=== PATIENT | female | born 1945 | race Caucasian/White ===

== ENCOUNTER 2021-08-25 13:36 | Outpatient (CLI) | payer MEDICARE, MEDICAID, SELFPAY ==
[2021-08-25 14:08] LABS: Basophils Absolute Auto 0.07 K/mm3 (0.00-0.10); Eosinophils Absolute Auto 0.09 K/mm3 (0.02-0.50); Eosinophils Percent Auto 1.3 % (1.0-6.0); Hematocrit 35.7 % (35.0-42.0); Hemoglobin 11.7 g/dL (11.7-13.8); Immature Granulocyte Absolute 0.03 K/mm3 (0.00-0.00); Immature Granulocyte Percent A 0.4 % (0.0-0.0); Lymphocytes Percent Auto 27.9 % (18.0-42.0); Mean Corpuscular HGB Conc 32.8 g/dL (32.0-36.0); Mean Corpuscular Hemoglobin 31.5 pg (27.0-31.0); Mean Platelet Volume 9.5 fl (9.2-11.8); Monocytes Absolute Auto 0.56 K/mm3 (0.10-0.90); Monocytes Percent Auto 8.2 % (2.0-11.0); Neutrophils Absolute Auto 4.2 K/mm3 (1.7-7.2); Neutrophils Percent Auto 61.2 % (50.0-70.0); Platelet Count Result 218 K/mm3 (150-420); Red Blood Count 3.72 M/mm3 (4.20-5.40); Red Cell Distribution Width 13.2 % (11.6-14.4); White Blood Count 6.8 K/mm3 (4.8-10.8)
[2021-08-25 14:11] LABS: Creatinine Urine 38.15 mg/dL (40-278); Ur Ttl Prot Creatinine Ratio 0.16 mg/mg (0-0.20)
[2021-08-25 14:17] LABS: Hemoglobin A1C 5.7 % (<5.7)
[2021-08-25 14:19] LABS: Total Protein Urine Random < 6.0 mg/dL (0.0-11.9)
[2021-08-25 14:28] LABS: Alanine Aminotransferase 18 U/L (14-59); Albumin Level 3.2 g/dL (3.4-5.0); Alkaline Phosphatase 40 U/L (46-116); Anion Gap 5 mmol/L (8-16); Aspartate Amino Transferase 17 U/L (15-37); Bilirubin,Total 0.5 mg/dL (0.00-1.00); Blood Urea Nitrogen 20 mg/dL (7-18); Carbon Dioxide 30 mmol/L (21-32); Chloride 101 mmol/L (98-108); Cholesterol 133 mg/dL (0-200); Estimated Glomerular Filt Rate 37; Glucose 100 mg/dL (70-99); HDL Direct 54 mg/dL (40-60); LDL Cholesterol Calculated 66 mg/dL (<130); Osmolality Calculated 284 mOsm/kg (285-295); Phosphorus 3.4 mg/dL (2.6-4.7); Sodium 136 mmol/L (136-145); Triglycerides 67 mg/dL (0-150); Uric Acid 5.2 mg/dL (2.6-6.0)
[2021-08-27 11:08] LABS: Add Urine Microscopic? YES; Appearance Urine Clear (Clear); Bilirubin Urine Negative (Negative); Blood Urine Negative (Negative); Color Urine Light Yellow (Yellow); Glucose Urine UA Negative (Negative); Ketones Urine Negative (Negative); Leukocyte Esterase Ur 1+ LEU/UL (Negative); Nitrate Urine Positive (Negative); Protein Urine Negative (Negative); Specific Grav Ur <= 1.005 (1.010-1.020); Urobilinogen Urine 0.2 mg/dL (0.2-1.0); pH Urine 6.5 (5.0-8.0)
[2021-08-27 11:14] LABS: Bacteria Urine 2+ /hpf; RBC Urine None seen /hpf (0-2); Squamous Epithelial Cell Urine Few /hpf (Few); WBC Urine 16-20 /hpf (0-3)
[2021-08-28 13:12] LABS: Parathyroid Intact 39 pg/mL (14-64)
[2021-08-28 20:03] LABS: Vitamin D 25 Hydroxy 65 ng/mL (30-100)
== END 2021-08-25 13:37 | disposition home or self-care (01) ==
LOC: CHSLAB 13:41
PROVIDERS: PCP Internal Medicine; Visit Provider Internal Medicine Nephrology
DX: M19.90 Unspecified osteoarthritis, unspecified site (principal); I12.0 Hypertensive chronic kidney disease with stage 5 chronic kidney disease or end stage renal disease; N18.32 Chronic kidney disease, stage 3b; N39.46 Mixed incontinence; E78.5 Hyperlipidemia, unspecified; E66.9 Obesity, unspecified; M10.9 Gout, unspecified; R73.9 Hyperglycemia, unspecified
CPT/HCPCS: 36415; 80053; 80061; 81001; 82306; 82570; 83036; 83970; 84100; 84156; 84443; 84550; 85025; 87077; 87086; 87088; 87186

== ENCOUNTER 2024-07-18 13:44 | Outpatient (RCR) | payer MEDICARE, MEDICAID, SELFPAY ==
--- NOTE | 2024-07-18 15:41 | OPREHPOC ---
Outpatient Therapy Plan of Care This is a Multidisciplinary Plan of Care that may contain components documented by all disciplines (PT, OT, and ST.) PT Problem 1 PT Problem #1 Knowledge Deficit PT Goal 1 Goal / Goal Update The patient will be independent in a home exercise program. Target Visit 4 PT Problem 2 PT Problem #2 Impaired Endurance PT Goal 1 Goal / Goal Update The patient will be able to ambulate for 6 minutes without a rest break to improve community ambulation. Target Visit 10 PT Problem 3 PT Problem #3 Impaired Strength PT Goal 1 Goal / Goal Update The patient will demonstrate at least 4/5 bilateral hip and knee strength to improve gait and balance. PT Problem 4 PT Problem #4 Impaired Balance PT Goal 1 Goal / Goal Update The patient will improve her TUG score to under 30 seconds. The patient will improve her Tinetti balance score to 19 or greater indicating a lower fall risk.
--- NOTE | 2024-07-18 15:42 | PTOPEVAL1 ---
Assessment and note entered by Amina Ng, PT Evaluation Information Assessment Status Evaluation ICD-10 Condition Codes (PT) Weakness R53.1 Onset 07/12/24 Subjective Information Tiana Wilson reports she has had both knees and both hips replaced. She had her hips replaced over 20 years ago and then the left knee was replaced approximately 6 years ago and the right one was approximately 4 years ago. She is using a rollator walker in her home and has been using a motorized cart when she goes shopping. She is using a standard walker to get to/from her home to the vehicle and into other buildings. She feels she has gotten weaker the last 2 years. She reports she has fallen out of bed about 6 months ago but has not fallen due to weakness in her legs. She is hoping to build her strength to get away from using motorized carts. She denies pain today. Reported Pain Level Pain Score 0: Self Report Assessment PT Clinical Summary Tiana Wilson is a 79 y/o with a history of bilateral hip and knee replacements with worsening weakness in bilateral LE's leading to reliance on motorized carts for shopping. She is able to use a walker for shorter distances but is hoping to work on her strength and endurance to improve her ability to walk and shop. She demonstrates weakness in the right > left knee and hip, altered gait, decreased endurance, and poor balance. She is currently a high fall risk and is only able to ambulate approximately 20 feet before needing to sit and rest. She will benefit from skilled PT to address these limitations and improve her daily function. Plan of Care Interventions Gait Training,Neuro Re-education,Patient/Caregiver Education,Therapeutic Activities,Therapeutic Exercise PT Services Indicated Yes Treatment Frequency and 2 times a week for 10 visits Duration These treatments will address the objective and functional deficits as defined above. The patient will be advanced safely and appropriately in order for the patient to progress towards his/her prior level of function. Additional exercises will be introduced and as well as a comprehensive home exercise program upon discharge, if needed, ?to ensure carryover of functional gains achieved in the clinic. This treatment plan has been reviewed and agreement upon by the patient.
--- NOTE | 2024-08-03 14:05 | PCPTNOTE ---
Patient did not show up for scheduled appointment this date. -Amina Ng, PT
--- NOTE | 2024-10-11 15:36 | OPREHPOC ---
Outpatient Therapy Plan of Care This is a Multidisciplinary Plan of Care that may contain components documented by all disciplines (PT, OT, and ST.) PT Problem 1 PT Problem #1 Knowledge Deficit PT Goal 1 Goal / Goal Update The patient will be independent in a home exercise program. Target Visit 4 Progress Not Met PT Problem 2 PT Problem #2 Impaired Endurance PT Goal 1 Goal / Goal Update The patient will be able to ambulate for 6 minutes without a rest break to improve community ambulation. Target Visit 10 Progress Not Met PT Problem 3 PT Problem #3 Impaired Strength PT Goal 1 Goal / Goal Update The patient will demonstrate at least 4/5 bilateral hip and knee strength to improve gait and balance. Progress Not Met PT Problem 4 PT Problem #4 Impaired Balance PT Goal 1 Goal / Goal Update The patient will improve her TUG score to under 30 seconds. The patient will improve her Tinetti balance score to 19 or greater indicating a lower fall risk. Progress Not Met
--- NOTE | 2024-10-11 15:36 | PTOPDC ---
Assessment and note entered by Amina Ng, PT Evaluation Information Assessment Status Discharge - Pt Not Present ICD-10 Condition Codes (PT) Weakness R53.1 Onset 07/12/24 Subjective Information Tiana Wilson was seen for 2 skilled PT visits and was last seen in the clinic on 07/27/24. She has not returned since then. Assessment PT Clinical Summary Tiana Wilson was seen for 2 skilled PT visits for weakness. She has not been seen since 07/27/24 and will be discharged. Plan of Care PT Services Indicated No
== END 2024-07-27 20:00 | disposition home or self-care (01) ==
LOC: CHSPT 13:44
DX: R29.898 Other symptoms and signs involving the musculoskeletal system (principal)
CPT/HCPCS: 97110; 97161; 97530

== ENCOUNTER 2024-08-01 14:22 | Emergency (ER) | payer MEDICARE, MEDICAID, SELFPAY ==
--- NOTE | ~2024-08-01 | US_ITS ---
EXAMINATION: US venous doppler [facility] DATE: 08/01/2024 14:53 INDICATION: Left lower limb swelling and erythema TECHNIQUE: Grayscale ultrasound images without and with compression and Doppler ultrasound images of the left lower extremity veins were obtained. COMPARISON: None. FINDINGS: The visualized portions of left common femoral vein, profunda (deep) femoral vein, femoral vein, popl iteal vein, peroneal veins, posterior tibial veins, gastrocnemius vein and greater saphenous vein out flow are patent. IMPRESSION: 1. No deep venous thrombosis in the left lower limb. Reviewed, dictated and finalized at location A.
[2024-08-01 14:22] VITALS: BP 126/91; PULSE 44; RESP 18; TEMP 36.3; O2SAT 80
--- OUTSIDE RECORDS SUMMARY | 2024-08-01 14:27 | XMS_ITS | Data Portability ---
[facility] Organization [facility] Address [address] [facility] [place] [address] Care Team Providers Care Fax Machine Repairer Name Role Phone TANA BROOKS Primary Care Provider Unavailabl e Assessment No assessment recorded. 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, ONLINE ADVERTISING DIRECTOR-BC Not available Not available Not available Lab uric acid, serum or plasma 2024 025 [facility], [address] [place] [address], [address], [address], 07/12/2024 15:29:07 lipid panel, serum 2024 025 [facility], [address] [place] [address], [facility], [place], [address], 07/12/2024 15:29:03 drug screen, 14 drugs (detect imed), urine 2024 025 [facility], [address] [place] [address] 2, [place], [address], 07/12/2024 15:39:33 culture , urine 2024 025 [facility], [address] [facility], [facility] 2, [place], [address], 07/12/2024 15:29:06 urinaly sis, complet e 2024 025 [facility], [address] [place], [place] [address] [address], [place], [address], 07/12/2024 15:39:33 CBC w/ auto diff 2024 025 [facility], [address] [place] [address], [place], [address], 07/12/2024 15:29:04 TSH + free T4, serum 2024 025 [facility], [address] [place] [address], [place], [address], 07/12/2024 15:29:04 CMP, serum or plasma 2024 025 [facility], [address] [place] [address], [place], [address], 07/12/2024 15:29:05 HbA1c (hemogl obin A1c), blood 2024 025 [facility], [address] [place] [address], [place], [address], 07/12/2024 15:29:08 BNP (B-type natriur etic peptide ), serum or plasma 2024 025 [facility], [address] [place] [address], [place], [address], 07/12/2024 15:37:05 fecal occult blood, immunoa ssay, stool 2023 024 [email or web address] [facility], [address] [place] [address], [place], [address], 05/29/2024 08:24:01 CBC w/ auto diff 2023 024 [email or web address] [facility], [address] [place] [address], [place], [address], 05/31/2024 09:31:50 CMP, serum or plasma 2023 024 [email or web address] [facility], [address] [place] [address], [place], [address], 05/31/2024 09:32:03 lipid panel, serum 2023 024 [email or web address] [facility], [address] [place] [address], [place], [address], 05/31/2024 09:32:09 HbA1c (hemogl obin A1c), blood 2022 023 [facility], [address] [place] [address], [place], [address], 05/03/2023 12:07:22 CBC w/ auto diff 2022 023 [facility], [address] [place] [address], [place], [address], 12/18/2022 15:17:35 CMP, serum or plasma 2022 023 [facility], [address] [place] [address], [place], [address], 12/18/2022 15:17:35 fecal occult blood, immunoa ssay, stool 2022 023 [email or web address] [facility], [address] [place] [address], [place], [address], 04/02/2023 11:51:25 lipid panel, serum 2022 023 [facility], [address] [place] [address], [place], [address], 12/18/2022 15:17:35 TSH, ultra-s ensitiv e, serum 2022 023 [facility], [address] [place] [address], [place], [address], 12/18/2022 15:17:35 CBC w/ auto diff 2022 023 [facility], [address] [place] [address] 2, [place], [address], 06/29/2022 15:13:06 CMP, serum or plasma 2022 023 [facility], [address] [place] [address] 2, [place], [address], 06/29/2022 15:13:04 lipid panel, serum 2022 023 [facility], [address] [place] [address] 2, [place], [address], 06/29/2022 15:13:06 CBC w/ auto diff 2021 022 [facility], [address] [place] [address] 2, [place], [address], 01/31/2022 08:19:23 lipid panel, serum 2021 022 [facility], [address] [place] [address], [place], [address], 01/31/2022 08:19:22 CMP, serum or plasma 2021 022 [facility], [address] [place] [address], [place], [address], 01/31/2022 08:19:23 Referral nephrol ogist referra l 2024 025 [facility], [address] [facility], [place], [address], 07/27/2024 08:55:[address] referra l 2024 025 [facility], [address] [facility], [place], [address], 07/18/2024 19:43:[address] referra l 2023 024 [facility], [address], [place], [address], 05/31/2024 09:32:[address] referra l 2022 023 [facility], [address] [place] [address], [address], 07/16/2022 17:20:01 Procedures None recorde d. Surgeries None recorde d. Imaging None recorde d. Medication Orders atorvas tatin 20 mg tablet 2023 024 [facility], [address] [place], [address], 01/14/2024 15:01:00 oxybuty sanjeev chlorid e 5 mg tablet 2022 023 [facility], [address] [place], [address], 06/29/2022 15:13:05 Patient TargetsNo targets recorded. Patient Instructions Encounter Date Encounter Id Patient Instructions Last Modified By Organization Details Last Modified Time 01/30/2022 [id number] f/u in 3month/lab nsuthan Not availab le 01/30/2022 15:13:20 06/29/2022 [id number] A healthy lifestyle: care instructions nsuthan Not available 06/29/2022 15:12:59 f/u in 4 month nsuthan Not available 0 06/29/2022 15:13:30 12/18/2022 [id number] A healthy lifestyle: care instructions nsuthan Not available 12/18/2022 15:17:20 stool kit/f/u in 4 month nsuthan Not available 12/18/2022 15:20:52 01/14/2024 [id number] stool kit /f/u i n 3 month nsuthan Not available 01/14/2024 14:48:49 07/12/2024 [id number] Plan of care has been discussed with patient including expected therapeutic benefits and potential side effects of prescribed medication and treatments. Patient verbalizes understanding and is in agreement with the plan of care. Patient was instructed to keep all scheduled appointments and contact the clinic for any additional problems. Health Maintenance: - CRC screening (45-75):Due at 45 years. - Osteoporosis screening: Due at 65. - Lipid screening (>45 unless additional risk factors): ordered - HIV: declined - HepC: declined -Eye exam: 2024-[facility] -Dental Exam: endentulous - Immunizations: - Influenza: 01/14/24 - PPV 23: 02/21/18, 05/15/15 - Tdap/Td ([id number]): 02/26/16 - Zoster (>60): 06/14/15 - COVID-19: 01/06/23, 01/23/22, 01/17/21 -Labs ordered this visit: Females: Pap smear: n/a Mammogram: n/a DEXA: n/a, patient reports history of normal result Not available 07/12/2024 15:25:29 Reason for Referral Physical Therapist Referral for Osteoarthritis of knee Referring Physician: [facility], Encounter Date: 06/29/2022 Physical Therapist Referral for Osteoarthritis of knee Referring Physician: [facility], Encounter Date: 01/14/2024 Roving Sizer Referral for Ch ronic kidney disease stage 3A Referring Physician: Tana Brooks [facility], Encounter Date: 07/12/2024 Physical Therapist Referral for Weakness of bilateral lower limb Referring Physician: Tana Brooks [facility], Encounter Date: 07/12/2024 Results Created Date Observation Date Name Description Value Unit Range Abnormal Flag Note LastModifiedBy Organization Detail LastModifiedTime 01/31/20 22 01/31/2022 LIPID PANEL cholesterol, total 151 mg/dL 100-19 9 Not Available [facility] ([facility]) [address] [facility], [place], [address], 01/31/2022 08:19:22 01/31/20 22 01/31/2022 LIPID PANEL triglyceride s 111 mg/dL 0-149 Not Available [facility]) [address] [facility], [place], [address], 01/31/2022 08:19:22 01/31/20 22 01/31/2022 LIPID PANEL HDL cholesterol 49 mg/dL >39 Not Available [facility]) [address] [place], [address], 01/31/2022 08:19:22 01/31/20 22 01/31/2022 LIPID PANEL VLDL cholesterol benedicto 20 mg/dL 5-40 Not Available [facility]) [address] [place], [address], 01/31/2022 08:19:22 01/31/20 22 01/31/2022 LIPID PANEL LDL chol calc ([facility]) 82 mg/dL 0-99 Not Available [facility]) [address] [place], [address], 01/31/2022 08:19:22 01/31/20 22 01/31/2022 COMP. METAB OLIC PANEL (14) glucose 85 mg/dL 70-99 Not Available [facility] ([facility]) [address] [place], [address], 01/31/2022 08:19:23 01/31/20 22 01/31/2022 COMP. METAB OLIC PANEL (14) BUN 16 mg/dL 8-27 Not Available [facility] ([facility]) [address] [place], [address], 01/31/2022 08:19:23 01/31/20 22 01/31/2022 COMP. METAB OLIC PANEL (14) creatinine 1.25 mg/dL 0.57-1 .00 above high normal Not Available [facility] ([facility]) [address] [place], [address], 01/31/2022 08:19:23 01/31/20 22 01/31/2022 COMP. METAB OLIC PANEL (14) eGFR 45 mL/mi n/1.7 3 >59 below low normal Not Available [facility] ([facility]) [address] [facility], [place], [address], 01/31/2022 08:19:23 01/31/20 22 01/31/2022 COMP. METAB OLIC PANEL (14) BUN/creatini ne ratio 13 12-28 Not Available [facility]) [address] [facility] [place], [address], 01/31/2022 08:19:23 01/31/20 22 01/31/2022 COMP. METAB OLIC PANEL (14) sodium 137 mmol/ L 134-14 4 Not Available [facility] ([facility]) [address] [facility] [place], [address], 01/31/2022 08:19:23 01/31/20 22 01/31/2022 COMP. METAB OLIC PANEL (14) potassium 4.5 mmol/ L 3.5-5. 2 Not Available [facility] ([facility]) [address] [facility] [place], [address], 01/31/2022 08:19:23 01/31/20 22 01/31/2022 COMP. METAB OLIC PANEL (14) chloride 97 mmol/ L 96-106 Not Available [facility] ([facility]) [address] [facility] [place], [address], 01/31/2022 08:19:23 01/31/20 22 01/31/2022 COMP. METAB OLIC PANEL (14) carbon dioxide, total 21 mmol/ L 20-29 Not Available [facility] ([facility]) [address] [facility] [place], [address], 01/31/2022 08:19:23 01/31/20 22 01/31/2022 COMP. METAB OLIC PANEL (14) calcium 9.3 mg/dL 8.7-10 .3 Not Available [facility] ([facility]) [address] [facility] [place], [address], 01/31/2022 08:19:23 01/31/20 22 01/31/2022 COMP. METAB OLIC PANEL (14) protein, total 6.7 g/dL 6.0-8. 5 Not Available [facility] ([facility]) [address] [facility] [place], [address], 01/31/2022 08:19:23 01/31/20 22 01/31/2022 COMP. METAB OLIC PANEL (14) albumin 4.2 g/dL 3.7-4. 7 Not Available [facility] ([facility]) [address] [facility] [place], [address], 01/31/2022 08:19:23 01/31/20 22 01/31/2022 COMP. METAB OLIC PANEL (14) globulin, total 2.5 g/dL 1.5-4. 5 Not Available [facility] ([facility]) [address] [facility] [place], [address], 01/31/2022 08:19:23 01/31/20 22 01/31/2022 COMP. METAB OLIC PANEL (14) A/G ratio 1.7 1.2-2. 2 Not Available [facility] ([facility]) [address] [facility] [place], [address], 01/31/2022 08:19:23 01/31/20 22 01/31/2022 COMP. METAB OLIC PANEL (14) bilirubin, total 0.4 mg/dL 0.0-1. 2 Not Available [facility] ([facility]) [address] [facility] [place], [address], 01/31/2022 08:19:23 01/31/20 22 01/31/2022 COMP. METAB OLIC PANEL (14) alkaline phosphatase 43 IU/L 44-121 below low normal Not Available [facility] ([facility]) [address] [facility] [place], [address], 01/31/2022 08:19:23 01/31/20 22 01/31/2022 COMP. METAB OLIC PANEL (14) AST (SGOT) 22 IU/L 0-40 Not Available [facility] ([facility]) [address] [place], [address], 01/31/2022 08:19:23 01/31/20 22 01/31/2022 COMP. METAB OLIC PANEL (14) ALT (SGPT) 9 IU/L 0-32 Not Available [facility] ([facility]) [address] [place], [address], 01/31/2022 08:19:23 01/31/20 22 01/31/2022 CBC WITH DIFFE RENTI AL/PL ATELE T WBC 7.2 x10e3 /uL 3.4-10 .8 Not Available [facility] ([facility]) [address] [place], [address], 01/31/2022 08:19:23 01/31/20 22 01/31/2022 CBC WITH DIFFE RENTI AL/PL ATELE T RBC 4.18 x10e6 /uL 3.77-5 .28 Not Available [facility] ([facility]) [address] [place], [address], 01/31/2022 08:19:23 01/31/20 22 01/31/2022 CBC WITH DIFFE RENTI AL/PL ATELE T hemoglobin 12.9 g/dL 11.1-1 5.9 Not Available [facility] ([facility]) [address] [place], [address], 01/31/2022 08:19:23 01/31/20 22 01/31/2022 CBC WITH DIFFE RENTI AL/PL ATELE T hematocrit 38.9 % 34.0-4 6.6 Not Available [facility] ([facility]) [address] [place], [address], 01/31/2022 08:19:23 01/31/20 22 01/31/2022 CBC WITH DIFFE RENTI AL/PL ATELE T MCV 93 fL 79-97 Not Available [facility] ([facility]) [address] [facility], [place], [address], 01/31/2022 08:19:23 01/31/20 22 01/31/2022 CBC WITH DIFFE RENTI AL/PL ATELE T MCH 30.9 pg 26.6-3 3.0 Not Available [facility] ([facility]) [address] [facility], [place], [address], 01/31/2022 08:19:23 01/31/20 22 01/31/2022 CBC WITH DIFFE RENTI AL/PL ATELE T MCHC 33.2 g/dL 31.5-3 5.7 Not Available [facility] ([facility]) [address] [place], [address], 01/31/2022 08:19:23 01/31/20 22 01/31/2022 CBC WITH DIFFE RENTI AL/PL ATELE T RDW 13.1 % 11.7-1 5.4 Not Available [facility] ([facility]) [address] [place], [address], 01/31/2022 08:19:23 01/31/20 22 01/31/2022 CBC WITH DIFFE RENTI AL/PL ATELE T platelets 249 x10e3 /uL 150-45 0 Not Available [facility] ([facility]) [address] [place], [address], 01/31/2022 08:19:23 01/31/20 22 01/31/2022 CBC WITH DIFFE RENTI AL/PL ATELE T neutrophils 67 % notest ab. Not Available [facility] ([facility]) [address] [place], [address], 01/31/2022 08:19:23 01/31/20 22 01/31/2022 CBC WITH DIFFE RENTI AL/PL ATELE T lymphs 23 % notest ab. Not Available [facility] ([facility]) [address] [facility], [place], [address], 01/31/2022 08:19:23 01/31/20 22 01/31/2022 CBC WITH DIFFE RENTI AL/PL ATELE T monocytes 8 % notest ab. Not Available [facility] ([facility]) [address] [facility], [place], [address], 01/31/2022 08:19:23 01/31/20 22 01/31/2022 CBC WITH DIFFE RENTI AL/PL ATELE T eos 1 % notest ab. Not Available [facility] ([facility]) [address] [facility], [place], [address], 01/31/2022 08:19:23 01/31/20 22 01/31/2022 CBC WITH DIFFE RENTI AL/PL ATELE T basos 1 % notest ab. Not Available [facility] ([facility]) [address] [facility], [place], [address], 01/31/2022 08:19:23 01/31/20 22 01/31/2022 CBC WITH DIFFE RENTI AL/PL ATELE T neutrophils (absolute) 4.7 x10e3 /uL 1.4-7. 0 Not Available [facility] ([facility]) [address] [facility], [place], [address], 01/31/2022 08:19:23 01/31/20 22 01/31/2022 CBC WITH DIFFE RENTI AL/PL ATELE T lymphs (absolute) 1.7 x10e3 /uL 0.7-3. 1 Not Available [facility] ([facility]) [address] [facility], [place], [address], 01/31/2022 08:19:23 01/31/20 22 01/31/2022 CBC WITH DIFFE RENTI AL/PL ATELE T monocytes(ab solute) 0.6 x10e3 /uL 0.1-0. 9 Not Available [facility] ([facility]) [address] [place], [address], 01/31/2022 08:19:23 01/31/20 22 01/31/2022 CBC WITH DIFFE RENTI AL/PL ATELE T eos (absolute) 0.1 x10e3 /uL 0.0-0. 4 Not Available [facility] ([facility]) [address] [place], [address], 01/31/2022 08:19:23 01/31/20 22 01/31/2022 CBC WITH DIFFE RENTI AL/PL ATELE T baso (absolute) 0.1 x10e3 /uL 0.0-0. 2 Not Available [facility] ([facility]) [address] [facility], [place], [address], 01/31/2022 08:19:23 01/31/20 22 01/31/2022 CBC WITH DIFFE RENTI AL/PL ATELE T immature granulocytes 0 % notest ab. Not Available [facility] ([facility]) [address] [facility], [place], [address], 01/31/2022 08:19:23 01/31/20 22 01/31/2022 CBC WITH DIFFE RENTI AL/PL ATELE T immature grans (abs) 0.0 x10e3 /uL 0.0-0. 1 Not Available [facility] ([facility]) [address] [place], [address], 01/31/2022 08:19:23 02/19/20 22 02/18/2022 elect chasity reynolds am No observ ation record ed. martinuthjermaine [facility] (Cardiology) [address] [facility] [place], [address], 02/19/2022 09:06:43 02/26/20 22 02/18/2022 US, echoc ardio gram No observ ation record ed. [address] [place], [address], 02/26/2022 15:39:37 03/05/2002/18/2022 US, echoc ardio gram No observ ation record ed. nsuthjermaine [facility] [address] [facility] [place], [address], 03/05/2022 11:37:43 Result Notes None recorded. Problems Name Problem SNOMED Code Status Onset Date Resolution Date Notes Provider Name and Address Organization Details Recorded Time Cervical spondylosi s 795510483 Active 2018 xray 01/31-augusto re arthritis Tato Damon MD Attn: Evgeny ingram,[address] [facility], [place], [place], [address] [place] [address] 2, [place] - [facility] 2 14:57:56 Essential hypertensi on 57099099 Active Tato Damon MD Attn: Evgeny ingram,[address] [facility], [place], [place], [address] [place] [address] 2, [place] [facility] 2 14:57:57 Chronic renal failure 92351992 Active Dr.Bentley Tato Damon MD Attn: Evgeny ingram,[address] [facility], [place], [place], [address] [place] [address] 2, [place] [facility] 2 14:57:57 Urinary incontinen ce 863273154 Active Tato Damon MD Attn: Evgeny ingram,[address] [facility], [place], [place], [address] [place] [address] 2, [place] [facility] 2 14:57:56 Osteoarthr itis of knee 438299381 Active Tato Damon MD Attn: Evgeny ingram,[address] [facility], [place], [place], [address] [place] [address] 2, [place] [facility] 2 14:57:56 Hyperglyce gabriel 61635905 Active 2021 Barb Patel MA null, [place] - [facility] 2 12:03:07 Hyperlipid emia 46388528 Active Tato Damon MD Attn: Evgeny ingram,[address] [facility], [place], [address], [facility] - [facility] 2 14:57:56 Intermitte nt palpitatio ns 536952538 Active 2021 Tato Damon MD Attn: Evgeny ingram,[address] [facility], [place], [address], [facility] - [facility] 2 15:09:56 Anxiety disorder 658596886 Active 2021 Tato Damon MD Attn: Evgeny ingram,[address] [facility], [place], [address], [facility] - [facility] 2 15:09:59 Gastroesop hageal reflux disease without esophagiti s 558334351 Active 2021 Tato Damon MD Attn: Evgeny ingram,[address] [facility], [place], [address], [facility] - [facility] 2 15:10:00 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 Procedures Surgical History Date Name Laterality Status Provider Name and Address Organization Details Recorded Time 07/14/19 21 Most Recent Mammogram completed Felisa Castellano MA [facility] 12/19/2021 15:14:59 Eye Surgery completed Aretha Davis MA [facility] 04/26/2014 15:49:12 Appendectomy completed Aretha Davis MA [facility] 04/26/2014 15:49:12 Hysterectomy completed ARA Calab[facility] - [facility] 04/26/2014 15:49:12 Joint Replacement completed ARA Calabrese - [facility] 04/26/2014 15:49:12 Caesarean Section completed ARA Calabrese - [facility] 04/26/2014 15:49:12 Imaging Results Imaging Date Name Status LastModified by Organization Details LastModified Time 02/18/2022 [facility] (Cardiology) [address] [place] [address] [place], [address], 02/19/2022 09:06:43 02/18/2022 US, echocardiogram completed [address] [place], [address], 02/26/2022 15:39:37 02/18/2022 US, echocardiogram completed [address] [place], [address], 03/05/2022 11:37:43 Procedure Notes None recorded. Medical Equipment None Reported. Allergies No known drug allergies Medications Name Sig Start Date Stop Date Status Note LastModified by Organization Details LastModified Time latanopros t 0.005 % eye drops INSTILL 1 DROP INTO RIGHT EYE AT BEDTIME active Not Available Not Available No t Available atorvastat in 20 mg tablet Take 1 tablet(s ) every day by oral route. 2024 active Not Available Not Available Not Avai lable pravastati n 40 mg tablet TAKE 1 TABLET BY MOUTH ONCE DAILY AT BEDTIME 01/13 completed Not Available Not Available Not Available tizanidine 4 mg tablet Take 1 tablet twice a day by oral route. 09/03 completed not taking Not Available Not Available Not Available fluconazol e 150 mg tablet 04/26 completed Not Available Not Available Not Available hydrocodon e 5 mg-acetami nophen 325 mg tablet active Not Available Not Available No t Available ondansetro n HCl 4 mg tablet active Not Available Not Available Not Available ciprofloxa haydee 250 mg tablet Take 1 tablet every day by oral route for 7 days. 12/19 completed Not Available Not Available Not Available allopurino l 100 mg tablet TAKE 1 TABLET BY MOUTH ONCE DAILY active Not Available Not Available No t Available ciprofloxa haydee 500 mg tablet 09/03 completed Not Available Not Available Not Available sulfametho xazole 800 mg-trimeth oprim 160 mg tablet active Not Available Not Available No t Available tramadol 50 mg tablet TAKE 1 TABLET BY MOUTH 1 TO 2 TIMES DAILY NEEDED active Not Available Not Available No t Available Celebrex 200 mg capsule active Not Available Not Available Not Available oxycodone- acetaminop hen 5 mg-325 mg tablet active Not Available Not Available Not Available famotidine 20 mg tablet Take 1 tablet by mouth twice daily active Not Available Not Available No t Available cephalexin 500 mg capsule 02/25 completed Not Available Not Available Not Available lisinopril 20 mg-hydroch lorothiazi de 25 mg tablet TAKE 1 TABLET BY MOUTH ONCE DAILY 12/23 completed not taking Not Available Not Available Not Available losartan 50 mg-hydroch lorothiazi de 12.5 mg tablet Take 1 tablet by mouth once daily 2024 active Not Available Not Available Not Avai lable oxybutynin chloride 5 mg tablet TAKE 1 TAB BY MOUTH IN THE MORNING AND 2 TABS IN THE EVENING active Not Available Not Available No t Available sertraline 50 mg tablet TAKE 1 TABLET BY MOUTH ONCE DAILY active Not Available Not Available No t Available amoxicilli n 500 mg-potassi um clavulanat e 125 mg tablet 01/01 completed Not Available Not Available Not Available metoprolol tartrate 25 mg tablet TAKE 1 TABLET BY MOUTH THREE TIMES DAILY active Not Available Not Available No t Available Zostavax (PF) 19,400 unit/0.65 mL subcutaneo us suspension 08/31 completed Not Available Not Available Not Available OxyContin 20 mg tablet,cru sh resistant, extended release active Not Available Not Available Not Available aspirin 81 mg capsule Take 1 capsule every day by oral route. active Not Available Not Available No t Available Vitals Date Recorded Body height Heart rate Respiratory rate Body temperature Oxygen saturation Oxygen saturation in Arterial blood by Pulse oximetry Body mass index (BMI) Body weight Systolic blood pressure Diastolic blood pressure Provider Name and Address Organization Details Last Updated DateTime 2 157.48 cm 71 /min 14 /min 97.5 [degF] 97 % 97 % 44.4 kg/m2 254316. 23 g 128 mm[Hg] 86 mm[Hg] Saba Tom MA [facility] 2 15:03:18 Date Recorded Body height Body mass index (BMI) Body weight Heart rate Respiratory rate Body temperature Oxygen saturation Oxygen saturation in Arterial blood by Pulse oximetry Systolic blood pressure Diastolic blood pressure Provider Name and Address Organization Details Last Updated DateTime 3 157.48 cm 44.5 kg/m2 381530. 02 g 82 /min 12 /min 97.1 [degF] 95 % 95 % 124 mm[Hg] 77 mm[Hg] Barb Patel MA [facility] 3 14:53:07 Date Recorded Body height Body mass index (BMI) Body weight Heart rate Respiratory rate Body temperature Oxygen saturation Oxygen saturation in Arterial blood by Pulse oximetry Systolic blood pressure Diastolic blood pressure Provider Name and Address Organization Details Last Updated DateTime 3 157.48 cm 45 kg/m2 235247. 72 g 96 /min 14 /min 98 [degF] 95 % 95 % 120 mm[Hg] 78 mm[Hg] Carmelita Ata [facility] 3 15:08:33 Date Recorded Body height Heart rate Respiratory rate Body temperature Oxygen saturation Oxygen saturation in Arterial blood by Pulse oximetry Systolic blood pressure Diastolic blood pressure Provider Name and Address Organization Details Last Updated DateTime 4 157.48 cm 72 /min 16 /min 97.7 [degF] 98 % 98 % 124 mm[Hg] 80 mm[Hg] Shakira Garza MA [facility] 4 14:29:52 Date Recorded Body height Oxygen saturation Oxygen saturation in Arterial blood by Pulse oximetry Heart rate Respiratory rate [id number]|2024-08-01 14:27:00|2024-08-01 14:24:00|XMS_ITS|SULEMAN VAN|External Medical Summaries|[id number]|" Continuity of Care Document (C-CDA R2.1) (Encounter date: 05/14/2006 11:05 AM) Created on: August 01, 2024 Tiana Wilson : 1945 Sex: Female Author Organization [facility] Address [address] [place] [address] [place] [address] Phone Care Team Providers Care Fax Machine Repairer Name Role Phone Vanita Dowd MD Unavailable Unavailable Procedures Procedure Date Post-op Follow-up Visit Post-op Follow-up Visit Remove Cataract, Insert Lens Office Consultation Echo Exam Of Eye Advance Directives Directive Yes / No Effective Date File Name No Information Encounters Encounter Description Practice Location Reason(s) For Visit Diagnoses Date Provider Providers Copied on Encounter [facility], [address] [place] [address] [address], [place], [place], [id number], [place] tel:[phone] [place] Professional No Information 7 Nile Waldron. [address], [place], [address], [place]. tel:[phone] Referring Provider: Kelly Borges, [address] [place] [address] Eye [facility], [place], [address]. [facility], [address] [place] [address] [address], [place], [place], [address], [place] tel:[phone] [facility] [employer] [place] Professional No Information 7 Nile Waldron. [address], [address], [place], [address], [place]. tel:[phone] [facility], [address] [place] [address] [address], [place], [place], [id number], [place] tel:[phone] Joshua FERGUSON [facility] No Information 7 Nile [address]ron. [address] [facility], [address], [place], [address], [place]. tel:[phone] Referring Provider: Kelly Borges, [address] [place] [address] Eye [facility], [place], [address]. Office Consultation [facility] Eye [facility], [address], [place], [place], [address], [place] tel:[phone] SEC Bhupinder MOBLEY Professional No Information [address] Nile [address]ron. [address] [facility] [address], [place], [address], [place]. tel:[phone] Referring Provider: Kelly Borges, [address] [place] [address] Eye [facility], [place], [address]. Family History Family Member Type Diagnosis Age At Onset No Information Payers Payer name Insurance type Covered alliance party ID Authoriza tion(s) No Information Social History Type Description Quantity Date Captured Comments Sex Female Smoking Status No Information Chief Complaint And Reason For Visit No Information Reason For Referral Reason For Referral No Information History Of Present Illness Encounter Date Complaint History Of Prese nt Illness No Information Functional Status Date Functional Assessmen t No Information Instructions Date Instruction Additional Infor mation No Information Assessments Type Assessment Date No Information Patient Care Teams Name Effective Dates (start - stop) Status Members No Information "
--- OUTSIDE RECORDS SUMMARY | 2024-08-01 14:27 | XMS_ITS | Clinical Summary ---
Author Organization [facility] Facility Address [address] [address] Care Team Providers Care Dog Pound Attendant Name Role Phone Tato Damon MD Primary Care Provider Allergies No known active allergies Medications aspirin (ST GERALDO) 81 MG EC tablet Take 81 mg by mouth 1 (one) time each day Active lisinopril-hydr oCHLOROthiazide (PRINZIDE,ZESTO RETIC) 20-25 MG per tablet Take 1 tablet by mouth 1 (one) time each day Active metoprolol tartrate 25 MG tablet Take 25 mg by mouth in the morning and 25 mg in the evening. Active oxybutynin (DITROPAN) 5 MG tablet Take 5 mg by mouth in the morning and 5 mg in the evening and 5 mg before bedtime. Active pravastatin (PRAVACHOL) 40 MG tablet Take 40 mg by mouth 1 (one) time each day Active traMADol (ULTRAM) 50 MG tablet Take 50 mg by mouth every 6 (six) hours if needed for moderate pain Active Cholecalciferol (Vitamin D3) 25 MCG tablet Take by mouth Activ e Active Problems Problem Noted Date Diagnosed Date Chronic kidney disease stage 3B 06/24/2021 Overview (06/24/2021): RENAL U/S SEPTEMBER C/W CKD/INCR ECHOGENICITY. R 9.1 L 8.5CM./ DIFFUSE BLADDER WALL THICKENING./ CREAT 1.46 - [facility] Benign essential hypertension 06/24/2021 Osteoarthritis 06/24/2021 Mixed incontinence (female) (male) 06/24/2021 Hyperlipidemia 06/24/2021 Obesity 06/24/2021 Gout 06/24/2021 Overview (06/24/2021): GOUT ATTCK FALL 2017- URIC ACID 9.1 Family History Medical History Relation Comments Heart attack Brother Liver cancer Brother Lung cancer Brother Lung cancer Father Cancer Sibling Kidney disease Sibling Diabetes Sister Heart disease Sister Relation Status Comments Brother Father Mother (Age 87) Sibling Alive Sister Social History Tobacco Use Types Packs/Day Years Used Date Smoking Tobacco: Never Smokeless Tobacco: Never Alcohol Use Standard Drinks/Week Comments Not Currently 0 (1 standard drink = 0.6 oz pur e alcohol) Former Social Drinker Comments Unknown Sex and Gender Information Value Date Recorded Sex Assigned at Not on file Legal Sex Female 12:13 PM EST Gender Identity Not on file Sexual Orientation Not on file Plan of Treatment Health Maintenance Due Date Last Done Comments Pneumococcal Vaccine: 50+ Ye ars (1 of 2 - PCV) 1966 Influenza Vaccine (Season Ended) 2024 Hepatitis B Vaccine Aged Out No longe r eligible based on patient's age to complete this topic Care Teams Dog Pound Attendant Relationship Specialty Start Date End Date Tato Damon MD [address] [id number] PCP - General Internal Medicine 06/27/21
[2024-08-01 14:44] LABS: Basophils Absolute Auto 0.03 K/mm3 (0.00-0.10); Basophils Percent Auto 0.2 % (0.0-1.0); Hematocrit 35.5 % (35.0-42.0); Hemoglobin 11.3 g/dL (11.7-13.8); Immature Granulocyte Absolute 0.17 K/mm3 (0.00-0.00); Lymphocytes Absolute Auto 1.45 K/mm3 (1.10-4.50); Lymphocytes Percent Auto 8.3 % (18.0-42.0); Mean Corpuscular HGB Conc 31.8 g/dL (32-36); Mean Corpuscular Hemoglobin 30.3 pg (27.0-31.0); Mean Corpuscular Volume 95.2 fL (78.0-102.0); Mean Platelet Volume 9.3 fl (9.2-11.8); Monocytes Absolute Auto 0.71 K/mm3 (0.10-0.90); Monocytes Percent Auto 4.1 % (2.0-11.0); Neutrophils Absolute Auto 15.02 K/mm3 (1.70-7.20); Neutrophils Percent Auto 86.4 % (50.0-70.0); Platelet Count Result 201 K/mm3 (150-420); Red Blood Count 3.73 M/mm3 (4.20-5.40); Red Cell Distribution Width 14.3 % (11.6-14.4); White Blood Count 17.4 K/mm3 (4.8-10.8)
[2024-08-01 14:58] LABS: Alanine Aminotransferase 24 U/L (6-35); Albumin Level 3.3 g/dL (3.5-5.1); Alkaline Phosphatase 51 U/L (38-126); Anion Gap 4 mmol/L (4-12); Aspartate Amino Transferase 33 U/L (14-36); Bilirubin,Total 1.8 mg/dL (0.2-1.3); Blood Urea Nitrogen 26 mg/dL (7-17); Calcium 8.6 mg/dL (8.4-10.2); Carbon Dioxide 30 mmol/L (22-30); Chloride 99 mmol/L (98-107); Estimated CRCL calculation 41 ml/min; Estimated Glomerular Filt Rate 43; Glucose 133 mg/dL (65-110); Osmolality Calculated 282 mOsm/kg (285-295); Potassium 3.4 mmol/L (3.4-5.0); Sodium 133 mmol/L (137-145); Total Protein 6.3 g/dL (6.3-8.2)
[2024-08-01 15:00] VITALS: BP 128/62; PULSE 99; RESP 17; O2SAT 97
[2024-08-01 15:02] LABS: D Dimer 3.32 mg/L (0.19-0.50)
--- OUTSIDE RECORDS SUMMARY | 2024-08-01 15:27 | XMS_ITS | Continuity of Care Document ---
Author Organization [facility] Address [address] [facility] [address] [place] [address] Phone Care Team Providers Care Varnish Maker Name Role Phone Vanita Dowd MD Unavailable Unavailable Procedures Procedure Date Post-op Follow-up Visit Post-op Follow-up Visit Remove Cataract, Insert Lens Office Consultation Echo Exam Of Eye Advance Directives Directive Yes / No Effective Date File Name No Information Encounters Encounter Description Practice Location Reason(s) For Visit Diagnoses Date Provider Providers Copied on Encounter [facility], [address] [place] [address] [address], [place], [place], [id number], [place] tel:[phone] SEC Bhupinder MOBLEY Professional No Information [address]ron. [address] [facility] [place] [place], [address], [place]. tel:[phone] Referring Provider: Kelly Borges, [address] [place] [address] [place], [address]. [facility], [address], [place], [place], [address], [place] tel:[phone] SEC Bhupinder ITZ Professional No Information 7 Nile Waldron. [address] [facility], [facility] A, [place], [address], [place]. tel:[phone] [facility], [address] [place] [address] [address], [place], [place], [address], tel:[phone] [facility] No Information Nile Waldron. [address], [facility] [place], [address], [place]. tel:[phone] Referring Provider: Kelly Borges, [address] [place] [address] Eye [facility], [place], [address]. Office Consultation [facility] Eye [facility], [address] [facility] [address], [place], [place], [address], [phone] SEC Bhupinder [place] Professional No Information Nile Waldron. [address], [facility] [place], [address], [place]. tel:[phone] Referring Provider: Kelly Borges, [address] [place] [address] Eye [facility], [place], [address]. Family History Family Member Type Diagnosis Age At Onset No Information Payers Payer name Insurance type Covered constitution party ID Authoriza tion(s) No Information Social [...]
--- OUTSIDE RECORDS SUMMARY | 2024-08-01 15:27 | XMS_ITS | Clinical Summary ---
Author Organization [facility] Facility Address [address] [address] Care Team Providers Care Electrolysis Engineer Name Role Phone Tato Damon MD Primary Care Provider [phone] Allergies No known active allergies Medications aspirin [...] age to complete this topic Care Teams Electrolysis Engineer Relationship Specialty Start Date End Date Tato Damon MD [address] [id number] PCP - General Internal Medicine 06/27/21
[2024-08-01 15:30] VITALS: BP 122/68; PULSE 88; RESP 17; O2SAT 98
--- NOTE | 2024-08-01 15:48 | ED_ITS ---
HPI - Extremity Problem General Chief complaint: Extremity Problem,Nontraumatic Stated complaint: leg pain and possible infection Time Seen by Provider: 08/01/24 14:29 Source: patient Mode of arrival: ambulatory Limitations: no limitations History of Present Illness HPI Narrative: Patient is 79-year-old female with a significant past medical history that presents today for lower extremity left side cellulitis. Patient has had this getting worse for the past week now. Is becoming more more red. She does have venous stasis dermatitis on both legs lower extremities. The left 1 however started turning very red and warm to touch. Also became painful to touch. Her PCP seem to think it could be a DVT he has 1 him undergo to the ER. MD Complaint: extremity pain and extremity swelling Onset (ago): week(s) Pain Consistency: intermittent Location: left Severity scale (1-10): 4 Quality: burning and aching Radiation: none Relieving factors: elevation Exacerbating factors: range of motion and weight bearing Associated symptoms: denies other symptoms Context: history of peripheral vascular disease Related Data Allergies Allergy/AdvReac Type Severity Reaction Status Date / Time No Known Allergies Allergy Verified 08/01/24 14:26 Review of Systems 2 Review of Systems: All systems reviewed & are unremarkable except as noted in HPI and below Constitutional: Constitutional: Reports as per HPI Eyes: Eyes: Reports no additional eye complaints ENT: Reports system reviewed and no additional complaints, except as documented Cardiovascular: Cardiovascular: Reports no additional cardiovascular complaints Respiratory: Respiratory: Reports no additional respiratory complaints Gastrointestinal: Gastrointestinal: Reports no additional gastrointestinal complaints Genitourinary: Genitourinary: Reports no additional female genitourinary complaints Musculoskeletal: Musculoskeletal: Reports as per HPI Integumentary/Breasts: Skin/Breast: Reports as per HPI Comments: Erythema and edema left lower extremity Neurologic: Reports system reviewed and no additional complaints, except as documented Psychiatric: Psychiatric: Reports no additional psychiatric complaints Endocrine: Endocrine: Reports no additional endocrine complaints Hematologic/Lymphatic: Hematologic/Lymphatic: Reports no additional hematologic/lymphatic complaints Allergic/Immunologic: Allergic/Immunologic: Reports no additional allergic/immunologic complaints Exam 2 Const: General: healthy appearing Nutritional Appearance: well nourished Orientation/consciousness: patient oriented x3 HENMT: Head: normal to inspection Ears: external ears normal F alis/Nose/Sinus: Normal external nose present Face and sinus: normal facial exam Mouth: Yes Normal oral and palatal mucosa present Teeth and gingiva: dentition normal Eyes: Conjunctivae: conjunctivae normal Pupils: Equal, round and reactive pupils present EOM: EOMs intact bilaterally Neck: Neck: normal visual inspection Chest: Chest palpation & inspection: normal inspection of the chest Resp: Effort & Inspection: normal respiratory effort Auscultation: clear to auscultation bilaterally Cardio: Rate: regular rate Rhythm: regular rhythm GI: GI Palp: Yes Soft to palpation Auscultation: normal bowel sounds R ectal Exam: normal sphincter tone Back/Spine/Pelvis: Back: no CVA tenderness Skin: General skin exam: normal color Rashes: no rashes Wounds: no wounds Neuro: General: patient oriented x3 Cranial nerves: Yes Nystagmus not present Speech: normal speech Gait exam (Neuro): Normal gait present Extrem: General: normal to inspection Psych: Mental Status: mental status grossly normal Affect: normal affect Attitude: cooperative Course Vital Signs Vital signs: Vital Signs Temperature 97.3 F L 08/01/24 14:22 Pulse Rate 44 L 08/01/24 14:22 Respiratory Rate 18 08/01/24 14:22 Blood Pressure 126/91 H 08/01/24 14:22 Pulse Oximetry 80 L 08/01/24 14:22 Oxygen Delivery Room Air 08/01/24 14:22 Temperature 97.3 F L 08/01/24 14:22 Pulse Rate 44 L 08/01/24 14:22 Respiratory Rate 18 08/01/24 14:22 Blood Pressure 126/91 H 08/01/24 14:22 Pulse Oximetry 80 L 08/01/24 14:22 Oxygen Delivery Room Air 08/01/24 14:22 MDM - Extremity (Nontraumatic) MDM Narrative Medical decision making narrative: patient has most likely just has cellulitis of the left lower extremity. A very low suspicion for DVT but will order a D-dimer and will ultrasound his stool here today will get him to do an ultrasound of the lower extremity. Help some her extremity showed no DVT, D-dimer was elevated to 1100. Differential Diagnosis Differential diagnosis: Likely cellulitis Medical Records Attestation: I reviewed the patient's medical records. Lab Data Attestation: I reviewed the patient's lab results. 08/01/24 14:39 08/01/24 14:39 Labs: Lab Results 08/01/24 Range/Units 14:39 WBC 17.4 H (4.8-10.8) K/mm3 RBC 3.73 L (4.20-5.40) M/mm3 Hgb 11.3 L (11.7-13.8) g/dL Hct 35.5 (35.0-42.0) % MCV 95.2 (78.0-102.0) fL MCH 30.3 (27.0-31.0) pg MCHC 31.8 L (32-36) g/dL RDW 14.3 (11.6-14.4) % Plt Count 201 (150-420) K/mm3 MPV 9.3 (9.2-11.8) fl Immature Gran % (Auto) 1.0 H (0.0-0.0) % Neut % (Auto) 86.4 H (50.0-70.0) % Lymph % (Auto) 8.3 L (18.0-42.0) % Larue % (Auto) 4.1 (2.0-11.0) % Eos % (Auto) 0.0 L (1.0-6.0) % Baso % (Auto) 0.2 (0.0-1.0) % Lymph # (Auto) 1.45 (1.10-4.50) K/mm3 Larue # (Auto) 0.71 (0.10-0.90) K/mm3 Eos # (Auto) 0.00 L (0.02-0.50) K/mm3 Baso # (Auto) 0.03 (0.00-0.10) K/mm3 Abs Immat Gran (auto) 0.17 H (0.00-0.00) K/mm3 Absolute Neuts (auto) 15.02 H (1.70-7.20) K/mm3 Absolute Nucleated RBC 0.00 (0.00-0.00) K/mm3 Nucleated RBC % 0.0 (0-0.0) % D-Dimer 3.32 H* (0.19-0.50) mg/L Sodium 133 L (137-145) mmol/L Potassium 3.4 (3.4-5.0) mmol/L Chloride 99 (98-107) mmol/L Carbon Dioxide 30 (22-30) mmol/L Anion Gap 4 (4-12) mmol/L BUN 26 H (7-17) mg/dL Creatinine 1.22 H (0.7-1.0) mg/dL Estim Creat Clear Calc 41 ml/min Estimated GFR 43 L (59 - ) Glucose 133 H (65-110) mg/dL Calculated Osmolality 282 L (285-295) mOsm/kg Calcium 8.6 (8.4-10.2) mg/dL Total Bilirubin 1.8 H (0.2-1.3) mg/dL AST 33 (14-36) U/L ALT 24 (6-35) U/L Alkaline Phosphatase 51 (38-126) U/L Total Protein 6.3 (6.3-8.2) g/dL Albumin 3.3 L (3.5-5.1) g/dL Imaging Data Attestation: I personally reviewed and interpreted this imaging study as follows: Discharge Plan Discharge Clinical Impression: Cellulitis, Lower extremity edema Patient Disposition: Home Condition: Stable Instructions: Antibiotic Form Patient Language: Czech Prescriptions: New doxycycline hyclate 100 mg tablet 100 mg PO Q12H Qty: 20 0RF Follow-up/Referrals: UNKNOWN,DOCTOR [Primary Care Provider] - Time of Disposition: 15:57
[2024-08-01 16:00] VITALS: BP 120/52; PULSE 97; RESP 17; O2SAT 98
[2024-08-01] MEDS: DOXYCYCLINE HYCLATE 100 MG TABLET PO (16:04)
[2024-08-01 16:12] VITALS: BP 120/52; PULSE 97; RESP 17; TEMP 36.3; O2SAT 98
== END 2024-08-01 16:12 | disposition home or self-care (01) ==
PROVIDERS: Emergency Provider Family Medicine
DX: L03.116 Cellulitis of left lower limb (principal); R60.0 Localized edema
CPT/HCPCS: 36415; 80053; 85025; 85380; 93971; 99283; A9270

== ENCOUNTER 2024-08-04 11:51 | Emergency (ER) | payer MEDICARE, MEDICAID, SELFPAY ==
[2024-08-04] VITALS (29 sets, daily range): BP systolic 87–159; BP diastolic 59–129; PULSE 104–145; RESP 15–22; TEMP 36.6; O2SAT 80–98
--- NOTE | ~2024-08-04 | XR_ITS ---
EXAMINATION: XR chest 1V portable 08/04/2024 12:17 INDICATION: Altered mental status PROCEDURE: AP portable chest COMPARISON: No prior studies for comparison. FINDINGS: The lungs are clear. The cardiomediastinal silhouette is within normal limits. There are no pleural effusions. There is no pneumothorax suspected. IMPRESSION: 1: NO ACUTE CARDIOPULMONARY DISEASE. Reviewed, dictated and finalized at location B.
--- NOTE | ~2024-08-04 | CT_ITS ---
Non-contrast Head CT History: Altered mental status, weakness Technique: Axial non-contrast imaging of the brain was performed. Dose reduction technique was used on this scan by utilizing automated exposure control and iterative reconstruction technique. The dose -length product (DLP) was 605.33 mGy-cm. Findings: There is no evidence of intracranial hemorrhage, mass lesion, or acute infarct. Brain par enchyma appears normal. The ventricles and subarachnoid spaces are normal in size. The calvarium ap pears normal. The visualized paranasal sinuses and mastoid air cells are clear. Impression: No significant abnormality seen. Reviewed, dictated and finalized at location . Impression: No significant abnormality seen.
--- OUTSIDE RECORDS SUMMARY | 2024-08-04 11:55 | XMS_ITS | Continuity of Care Document ---
Author Organization Located within [facility] Address [address] [facility] [address] [place] [address] Phone Care Team Providers Care Title I Instructional Assistant Name Role Phone Vanita Dowd MD Unavailable Unavailable Procedures Procedure Date Post-op Follow-up Visit Post-op Follow-up Visit Remove Cataract, Insert Lens Office Consultation Echo Exam Of Eye Advance Directives Directive Yes / No Effective Date File Name No Information Encounters Encounter Description Practice Location Reason(s) For Visit Diagnoses Date Provider Providers Copied on Encounter [facility], [address] [place] [address] [address], [place], [place], [address], [place] tel:[phone] SEC Bhupinder MOBLEY Professional No Information [address]. [address] [facility] [place], [address], [place]. tel:[phone] Referring Provider: Kelly Borges, [address] [place] [address] [place], [address]. [facility], [address], [place], [place], [address], [place] tel:[phone] SEC Bhupinder ITZ Professional No Information 7 [address]. [address] [facility], [facility] A, [place], [address], [place]. tel:[phone] [facility], [address] [place] [address] [address], [place], [place], [address], tel:[phone] [facility] No Information Nlie Waldron. [address], [facility] [place], [address], [place]. tel:[phone] Referring Provider: Kelly Borges, [address] [place] [address] Eye [facility], [place], [address]. Office Consultation [facility] Eye [facility], [address] [facility] [address], [place], [place], [address], [phone] SEC Bhupinder [place] Professional No Information Nile Waldron. [address], [facility] [place], [address], [place]. tel:[phone] Referring Provider: Kelly Borges, [address] [place] [address] Eye [facility], [place], [address]. Family History Family Member Type Diagnosis Age [...]
--- OUTSIDE RECORDS SUMMARY | 2024-08-04 11:56 | XMS_ITS | Data Portability ---
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 Not available Not available Not available Lab uric acid, serum or plasma 2024 025 eemeryma [facility], [address] [place] [address], [address], 08/02/2024 11:28:17 lipid panel, serum 2024 025 eemeryma [facility], [address] [place] [address], [place], [address], 08/02/2024 11:28:17 drug screen, 14 drugs (detect imed), urine 2024 025 eemeryma [facility], [address] [place] [address], [place], [address], 08/02/2024 11:28:18 culture , urine 2024 025 eemeryma [facility], [address] [place] [address] 2, [place], [address], 08/02/2024 11:28:17 urinaly sis, complet e 2024 025 eemeryma [facility], [address] [place] [address], [place], [address], 08/02/2024 11:28:18 CBC w/ auto diff 2024 025 eemeryma [facility], [address] [place] [address], [place], [address], 08/02/2024 11:28:17 TSH + free T4, serum 2024 025 eemeryma [facility], [address] [place] [address], [place], [address], 08/02/2024 11:28:17 CMP, serum or plasma 2024 025 eemeryma [facility], [address] [place] [address], [place], [address], 08/02/2024 11:28:17 HbA1c (hemogl obin A1c), blood 2024 025 NASIM [facility], [address] [place] [address], [place], [address], 07/12/2024 15:29:08 BNP (B-type natriur etic peptide ), serum or plasma 2024 025 eemeryma [facility], [address] [place] [address], [place], [address], 08/02/2024 11:28:17 fecal occult blood, immunoa ssay, stool 2023 024 jschulterma [facility], [address] [place] [address], [place], [address], 05/29/2024 08:24:01 CBC w/ auto diff 2023 024 dturnerma [facility], [address] [place] [address], [place], [address], 05/31/2024 09:31:50 CMP, serum or plasma 2023 024 dturnerma [facility], [address] [facility], [facility] [address], [place], [address], 05/31/2024 09:32:03 lipid panel, serum 2023 024 dturnerma [facility], [address] [facility], [facility] 2, [place], [address], 05/31/2024 09:32:09 HbA1c (hemogl obin A1c), blood 2022 023 [facility], [address] [facility], [facility], [place], [address], 05/03/2023 12:07:22 CBC w/ auto diff 2022 023 NASIM [facility], [address] [facility], [facility], [place], [address], 12/18/2022 15:17:35 CMP, serum or plasma 2022 023 NASIM [facility], [address] [facility], [facility], [place], [address], 12/18/2022 15:17:35 fecal occult blood, immunoa ssay, stool 2022 023 jschulterma [facility], [address] [facility], [facility], [place], [address], 04/02/2023 11:51:25 lipid panel, serum 2022 023 NASIM [facility], [address] [facility], [facility], [place], [address], 12/18/2022 15:17:35 TSH, ultra-s ensitiv e, serum 2022 023 NASIM [facility], [address] [facility], [facility], [place], [address], 12/18/2022 15:17:35 CBC w/ auto diff 2022 023 NASIM [facility], [address], [place], [address], 06/29/2022 15:13:06 CMP, serum or plasma 2022 023 NASIM [facility], [address], [place], [address], 06/29/2022 15:13:04 lipid panel, serum 2022 023 NASIM [facility], [address], [place], [address], 06/29/2022 15:13:06 CBC w/ auto diff 2021 022 NASIM [facility], [address], [place], [address], 01/31/2022 08:19:23 lipid panel, serum 2021 022 NASIM [facility], [address], [place], [address], 01/31/2022 08:19:22 CMP, serum or plasma 2021 022 NASIM [facility], [address] [facility], [address], [place], [address], 01/31/2022 08:19:23 Referral nephrol ogist referra l 2024 025 [facility], [address], [place], [address], 08/02/2024 11:28:[address] referra l 2024 025 [facility], [address] [facility], [place], [address], 07/18/2024 19:43:[address] referra l [address] [facility], [address], [place], [address], 05/31/2024 09:32:[address] st referra l 2022 023 [facility], [address] [place], [address], 07/16/2022 17:20:01 Procedures None recorde d. Surgeries None recorde d. Imaging None recorde d. Medication Orders atorvas tatin 20 mg tablet 2023 024 [facility], [address] [place] [address], [address], 01/14/2024 15:01:00 oxybuty sanjeev chlorid e 5 mg tablet 2022 023 [facility], [address] [place], [address], 06/29/2022 15:13:05 Patient TargetsNo targets recorded. Patient Instructions Encounter Date Encounter Id Patient Instructions Last Modified By Organization Details Last Modified Time 01/30/2022 [id number] f/u in 3month/lab nsuthan Not availab le 01/30/2022 15:13:20 06/29/2022 [id number] A healthy lifestyle: care instructions nsuthan Not available 06/29/2022 15:12:59 f/u in 4 month nsuthan Not available 0 06/29/2022 15:13:30 12/18/2022 [id number] A healthy lifestyle: care instructions nsuthan Not available 12/18/2022 15:17:20 stool kit/f/u in 4 month nsuthan Not available 12/18/2022 15:20:52 01/14/2024 [id number] stool kit /f/u i n 3 month nsuthan Not available 01/14/2024 14:48:49 07/12/2024 [id number] Plan of care has been discussed with [...] - PPV 23: 02/21/18, 05/15/15 - Tdap/Td ([id number]): 02/26/16 - Zoster (>60): 06/14/15 - COVID-19: 01/06/23, 01/23/22, 01/17/21 -Labs ordered this visit: Females: Pap smear: n/a Mammogram: n/a DEXA: n/a, patient reports history of normal result [email or web address] Not available 07/12/2024 15:25:29 Reason for Referral Physical Therapist Referral for Osteoarthritis of knee Referring Physician: Lynette Damon, Internal Medicine, Encounter Date: 06/29/2022 Physical Therapist Referral for Osteoarthritis of knee Referring Physician: Lynette Damon Internal Medicine, Encounter Date: 01/14/2024 Phys Ther Referral for Ch ronic kidney disease stage 3A Referring Physician: Tana Brooks [facility], Encounter Date: 07/12/2024 Physical Therapist Referral for Weakness of bilateral lower limb Referring Physician: Tana Brooks [facility], Encounter Date: 07/12/2024 Results Created Date Observation Date Name Description Value Unit Range Abnormal Flag Note LastModifiedBy Organization Detail LastModifiedTime 01/31/2001/31/2022 LIPID PANEL cholesterol, total 151 mg/dL 100-19 9 Not Available [facility] ([facility]) [address], [place], [address], 01/31/2022 08:19:22 01/31/20 22 01/31/2022 LIPID PANEL triglyceride s 111 mg/dL 0-149 Not Available [facility] ([facility]) [address] [place], [address], 01/31/2022 08:19:22 01/31/20 22 01/31/2022 LIPID PANEL HDL cholesterol 49 mg/dL >39 Not Available [facility] ([facility]) [address] [place], [address], 01/31/2022 08:19:22 01/31/20 22 01/31/2022 LIPID PANEL VLDL cholesterol benedicto 20 mg/dL 5-40 Not Available [facility] ([facility]) [address] [place], [address], 01/31/2022 08:19:22 01/31/20 22 01/31/2022 LIPID PANEL LDL chol calc ([facility]) 82 mg/dL 0-99 Not Available [facility] ([facility]) [address] [place], [address], 01/31/2022 08:19:22 01/31/20 22 01/31/2022 COMP. METAB OLIC PANEL (14) glucose 85 mg/dL 70-99 Not Available [facility] ([facility]) [address] [place], [address], 01/31/2022 08:19:23 01/31/20 22 01/31/2022 COMP. METAB OLIC PANEL (14) BUN 16 mg/dL 8-27 Not Available [facility] ([facility]) [address] [place], [address], 01/31/2022 08:19:23 01/31/20 22 01/31/2022 COMP. METAB OLIC PANEL (14) creatinine 1.25 mg/dL 0.57-1 .00 above high normal Not Available [facility] ([facility]) [address] [place], [address], 01/31/2022 08:19:23 01/31/20 22 01/31/2022 COMP. METAB OLIC PANEL (14) eGFR 45 mL/mi n/1.7 3 >59 below low normal Not Available [facility] ([facility]) [address] [facility], [place], [address], 01/31/2022 08:19:23 01/31/20 22 01/31/2022 COMP. METAB OLIC PANEL (14) BUN/creatini ne ratio 13 12-28 Not Available [facility] ([facility]) [address] [facility], [place], [address], 01/31/2022 08:19:23 01/31/20 22 01/31/2022 COMP. METAB OLIC PANEL (14) sodium 137 mmol/ L 134-14 4 Not Available [facility] ([facility]) [address] [facility], [place], [address], 01/31/2022 08:19:23 01/31/20 22 01/31/2022 COMP. METAB OLIC PANEL (14) potassium 4.5 mmol/ L 3.5-5. 2 Not Available [facility] ([facility]) [address] [facility], [place], [address], 01/31/2022 08:19:23 01/31/20 22 01/31/2022 COMP. METAB OLIC PANEL (14) chloride 97 mmol/ L 96-106 Not Available [facility] ([facility]) [address] [place], [address], 01/31/2022 08:19:23 01/31/20 22 01/31/2022 COMP. METAB OLIC PANEL (14) carbon dioxide, total 21 mmol/ L 20-29 Not Available [facility] ([facility]) [address] [place], [address], 01/31/2022 08:19:23 01/31/20 22 01/31/2022 COMP. METAB OLIC PANEL (14) calcium 9.3 mg/dL 8.7-10 .3 Not Available [facility] ([facility]) [address] [place], [address], 01/31/2022 08:19:23 01/31/20 22 01/31/2022 COMP. METAB OLIC PANEL (14) protein, total 6.7 g/dL 6.0-8. 5 Not Available [facility] ([facility]) [address] [place], [address], 01/31/2022 08:19:23 01/31/20 22 01/31/2022 COMP. METAB OLIC PANEL (14) albumin 4.2 g/dL 3.7-4. 7 Not Available [facility] ([facility]) [address] [facility] [place], [address], 01/31/2022 08:19:23 01/31/20 22 01/31/2022 COMP. METAB OLIC PANEL (14) globulin, total 2.5 g/dL 1.5-4. 5 Not Available [facility] ([facility]) [address] [facility] [place], [address], 01/31/2022 08:19:23 01/31/20 22 01/31/2022 COMP. METAB OLIC PANEL (14) A/G ratio 1.7 1.2-2. 2 Not Available [facility] ([facility]) [address] [facility] [place], [address], 01/31/2022 08:19:23 01/31/20 22 01/31/2022 COMP. METAB OLIC PANEL (14) bilirubin, total 0.4 mg/dL 0.0-1. 2 Not Available [facility] ([facility]) [address] [facility] [place], [address], 01/31/2022 08:19:23 01/31/20 22 01/31/2022 COMP. METAB OLIC PANEL (14) alkaline phosphatase 43 IU/L 44-121 below low normal Not Available [facility] ([facility]) [address] [facility], [place], [address], 01/31/2022 08:19:23 01/31/20 22 01/31/2022 COMP. METAB OLIC PANEL (14) AST (SGOT) 22 IU/L 0-40 Not Available [facility] ([facility]) [address], [place], [address], 01/31/2022 08:19:23 01/31/20 22 01/31/2022 COMP. METAB OLIC PANEL (14) ALT (SGPT) 9 IU/L 0-32 Not Available [facility] ([facility]) [address] [facility] [place], [address], 01/31/2022 08:19:23 01/31/20 22 01/31/2022 CBC WITH DIFFE RENTI AL/PL ATELE T WBC 7.2 x10e3 /uL 3.4-10 .8 Not Available [facility] ([facility]) [address] [facility], [place], [address], 01/31/2022 08:19:23 01/31/20 22 01/31/2022 CBC WITH DIFFE RENTI AL/PL ATELE T RBC 4.18 x10e6 /uL 3.77-5 .28 Not Available [facility] ([facility]) [address] [facility] [place], [address], 01/31/2022 08:19:23 01/31/20 22 01/31/2022 CBC WITH DIFFE RENTI AL/PL ATELE T hemoglobin 12.9 g/dL 11.1-1 5.9 Not Available [facility] ([facility]) [address] [facility] [place], [address], 01/31/2022 08:19:23 01/31/20 22 01/31/2022 CBC WITH DIFFE RENTI AL/PL ATELE T hematocrit 38.9 % 34.0-4 6.6 Not Available [facility] ([facility]) [address] [facility], [place], [address], 01/31/2022 08:19:23 01/31/20 22 01/31/2022 CBC WITH DIFFE RENTI AL/PL ATELE T MCV 93 fL 79-97 Not Available [facility] ([facility]) [address] [facility], [place], [address], 01/31/2022 08:19:23 01/31/20 22 01/31/2022 CBC WITH DIFFE RENTI AL/PL ATELE T MCH 30.9 pg 26.6-3 3.0 Not Available [facility] ([facility]) [address] [facility], [place], [address], 01/31/2022 08:19:23 01/31/20 22 01/31/2022 CBC WITH DIFFE RENTI AL/PL ATELE T MCHC 33.2 g/dL 31.5-3 5.7 Not Available [facility] ([facility]) [address] [facility], [place], [address], 01/31/2022 08:19:23 01/31/20 22 01/31/2022 CBC WITH DIFFE RENTI AL/PL ATELE T RDW 13.1 % 11.7-1 5.4 Not Available [facility] ([facility]) [address] [facility], [place], [address], 01/31/2022 08:19:23 01/31/20 22 01/31/2022 CBC WITH DIFFE RENTI AL/PL ATELE T platelets 249 x10e3 /uL 150-45 0 Not Available [facility] ([facility]) [address] [facility], [place], [address], 01/31/2022 08:19:23 01/31/20 22 01/31/2022 CBC WITH DIFFE RENTI AL/PL ATELE T neutrophils 67 % notest ab. Not Available [facility] ([facility]) [address] [facility], [place], [address], 01/31/2022 08:19:23 01/31/20 22 01/31/2022 CBC WITH DIFFE RENTI AL/PL ATELE T lymphs 23 % notest ab. Not Available [facility] ([facility]) [address] [facility], [place], [address], 01/31/2022 08:19:23 01/31/20 22 01/31/2022 CBC WITH DIFFE RENTI AL/PL ATELE T monocytes 8 % notest ab. Not Available [facility] ([facility]) [address] [facility], [place], [address], 01/31/2022 08:19:23 01/31/20 22 01/31/2022 CBC WITH DIFFE RENTI AL/PL ATELE T eos 1 % notest ab. Not Available [facility] ([facility]) [address] [facility], [place], [address], 01/31/2022 08:19:23 01/31/20 22 01/31/2022 CBC WITH DIFFE RENTI AL/PL ATELE T basos 1 % notest ab. Not Available [facility] ([facility]) [address] [facility], [place], [address], 01/31/2022 08:19:23 01/31/20 22 01/31/2022 CBC WITH DIFFE RENTI AL/PL ATELE T neutrophils (absolute) 4.7 x10e3 /uL 1.4-7. 0 Not Available [facility] ([facility]) [address] [facility], [place], [address], 01/31/2022 08:19:23 01/31/20 22 01/31/2022 CBC WITH DIFFE RENTI AL/PL ATELE T lymphs (absolute) 1.7 x10e3 /uL 0.7-3. 1 Not Available [facility] ([facility]) [address] [facility], [place], [address], 01/31/2022 08:19:23 01/31/20 22 01/31/2022 CBC WITH DIFFE RENTI AL/PL ATELE T monocytes(ab solute) 0.6 x10e3 /uL 0.1-0. 9 Not Available [facility] ([facility]) [address] [facility], [place], [address], 01/31/2022 08:19:23 01/31/20 22 01/31/2022 CBC WITH DIFFE RENTI AL/PL ATELE T eos (absolute) 0.1 x10e3 /uL 0.0-0. 4 Not Available [facility] ([facility]) [address] [place], [address], 01/31/2022 08:19:23 01/31/20 22 01/31/2022 CBC WITH DIFFE RENTI AL/PL ATELE T baso (absolute) 0.1 x10e3 /uL 0.0-0. 2 Not Available [facility] ([facility]) [address] [facility], [place], [address], 01/31/2022 08:19:23 01/31/20 22 01/31/2022 CBC WITH DIFFE RENTI AL/PL ATELE T immature granulocytes 0 % notest ab. Not Available [facility] ([facility]) [address] [facility], [place], [address], 01/31/2022 08:19:23 01/31/20 22 01/31/2022 CBC WITH DIFFE RENTI AL/PL ATELE T immature grans (abs) 0.0 x10e3 /uL 0.0-0. 1 Not Available [facility] ([facility]) [address] [place], [address], 01/31/2022 08:19:23 02/19/20 22 02/18/2022 elect chasity reynolds am No observ ation record ed. nsuth[facility]ermaine [facility] (Cardiology) [address] [place], [address], 02/19/2022 09:06:43 02/26/2002/18/2022 US, echoc ardio gram No observ ation record ed. [address] [place], [address], 02/26/2022 15:39:37 03/05/20 22 02/18/2022 US, echoc ardio gram No observ ation record ed. nsuthan [address] [place], [address], 03/05/2022 11:37:43 Result Notes None recorded. Problems Name Problem SNOMED Code Status Onset Date Resolution Date Notes Provider Name and Address Organization Details Recorded Time Cervical spondylosi s 906252938 Active 2018 xray 01/31-augusto re arthritis Tato Damon MD Attn: Evgeny g,[address] [facility], [place], [address], [place] - [facility] 2 14:57:56 Essential hypertensi on 77075314 Active Tato Damon MD Attn: Evgeny g,[address] [facility], [place], [address], [place] [facility] 2 14:57:57 Chronic renal failure 99195136 Active Dr.Bentley Tato Damon MD Attn: Evgeny g,[address] [facility], [place], [address], [place] [facility] 2 14:57:57 Urinary incontinen ce 195826604 Active Tato Damon MD Attn: Accountjamin g,[address] [facility], [place], [address], [place] [facility] 2 14:57:56 Osteoarthr itis of knee 506622052 Active Tato Damon MD Attn: Accountjamin g,[address] [facility], [place], [address], [place] [facility] 2 14:57:56 Hyperglyce gabriel 47258864 Active 2021 Barb Patel MA null, [place] - [facility] 2 12:03:07 Hyperlipid emia 08783805 Active Tato Damon MD Attn: Evgeny ingram,[address] [facility], [place], [address], [place] - [facility] 2 14:57:56 Intermitte nt palpitatio ns 512474069 Active 2021 Tato Damon MD Attn: Evgeny ingram,[address] [facility], [place], [place], [address] [place] [address], [place] - [facility] 2 15:09:56 Anxiety disorder 585539677 Active 2021 Tato Damon MD Attn: Evgeny ingram,[address] [facility], [place], [place], [address] [place] [address] 2, [facility] - [facility] 2 15:09:59 Gastroesop hageal reflux disease without esophagiti s 810884691 Active 2021 Tato Damon MD Attn: Evgeny ingram,[address] [facility], [place], [address], [facility] - [facility] 2 15:10:00 Blind left eye 519897096 Active 2023 Tato Damon MD Attn: Evgeny ingram,[address] [facility], [place], [address], [place] - [facility] 4 14:44:48 Morbid obesity 938880857 Active Tato Damon MD Attn: Evgeny juan jose,[address] [facility], [place], [address], [place] - [facility] 2 14:57:56 Notes:echo 03/05 -EF55-60% Problem Notes None recorded. Procedures Surgical History Date Name Laterality Status Provider Name and Address Organization Details Recorded Time 07/14/19 21 Most Recent Mammogram completed Felisa Castellano [place] 12/19/2021 15:14:59 Eye Surgery completed Aretha Davis MA [place] - [facility] 04/26/2014 15:49:12 Appendectomy completed ARA [place] - [facility] 04/26/2014 15:49:12 Hysterectomy completed ARA [place] [facility] 04/26/2014 15:49:12 Joint Replacement completed ARA [place] [facility] 04/26/2014 15:49:12 Caesarean Section completed Aretha Davis MA [facility] 04/26/2014 15:49:12 Imaging Results Imaging Date Name Status LastModified by Organization Details LastModified Time 02/18/2022 [facility] ([facility]) [address] [place] [address] [place], [address], 02/19/2022 09:06:43 02/18/2022 US, echocardiogram completed [address] [place], [address], 02/26/2022 15:39:37 02/18/2022 US, echocardiogram completed [address] [place], [address], 03/05/2022 11:37:43 Procedure Notes None recorded. Medical [...] [degF] 97 % 97 % 44.4 kg/m2 619482. 23 g 128 mm[Hg] 86 mm[Hg] Saba Tom MA [facility] 2 15:03:18 Date Recorded Body height Body mass index (BMI) Body weight Heart rate Respiratory rate Body temperature Oxygen saturation Oxygen saturation in Arterial blood by Pulse oximetry Systolic blood pressure Diastolic blood pressure Provider Name and Address Organization Details Last Updated DateTime 3 157.48 cm 44.5 kg/m2 761888. 02 g 82 /min 12 /min 97.1 [degF] 95 % 95 % 124 mm[Hg] 77 mm[Hg] Barb Patel MA [facility] 3 14:53:07 Date Recorded Body height Body mass index (BMI) Body weight Heart rate Respiratory rate Body temperature Oxygen saturation Oxygen saturation in Arterial blood by Pulse oximetry Systolic blood pressure Diastolic blood pressure Provider Name and Address Organization Details Last Updated DateTime 3 157.48 cm 45 kg/m2 019678. 72 g 96 /min 14 /min 98 [degF] 95 % 95 % 120 mm[Hg] 78 mm[Hg] Carmelita Berumen [facility] 3 15:08:33 Date Recorded Body height Heart rate Respiratory rate Body temperature Oxygen saturation Oxygen saturation in Arterial blood by Pulse oximetry Systolic blood pressure Diastolic blood pressure Provider Name and Address Organization Details Last Updated DateTime 4 157.48 cm 72 /min 16 /min 97.7 [degF] 98 % 98 % 124 mm[Hg] 80 mm[Hg] Shakira Garza MA [facility] 4 14:29:52 Date Recorded Body height Oxygen saturation Oxygen saturation in Arterial blood by Pulse oximetry Heart rate Respiratory rate Body temperature Systolic blood pressure Diastolic blood pressure Provider Name and Address Organization Details Last Updated DateTime 5 157.48 cm 96 % 96 % 64 /min 14 /min 97.2 [degF] 119 mm[Hg] 77 mm[Hg] Barb Patel MA [facility] 5 15:14:54 Social History Question Answer Notes LastModified by Organizat ion Details LastModified Time Tobacco Smoking Status Never Smoker ARA [place], [facility] 04/26/2014 15:49:12 Do You Have An Advance Directive? No [email or web address] Information not available 01/30/2022 Are You Blind Or Do You Have Difficulty Seeing? Yes Glasses Information not available 12/23/2020 What Is Your Level Of Caffeine Consumption? Occasional Soda, Decaf Coffee Information not available 07/12/2024 How Much Tobacco Do You Chew? None Information not available 02/26/2016 In The 14 Days Before Symptom Onset, Have You Had Close Contact With A Laboratory-confir med COVID-19 While That Case Was Ill? No Information not available 09/04/2019 In The 14 Days Before Symptom Onset, Have You Had Close Contact With A Person Who Is Under Investigation For COVID-19 While That Person Was Ill? No Information not available 09/04/2019 Have You Been To An Area Known To Be High Risk For COVID-19? No Information not available 09/04/2019 Are You Deaf Or Do You Have Serious Difficulty Hearing? No [email or web address] Information not available 08/23/2020 What Type Of Diet Are You Following? REGULAR Information not available 02/26/2016 Which Illicit Or Recreational Drugs Have You Used? Denies Information not available 02/26/2016 What Is The Highest Grade Or Level Of School You Have Completed Or The Highest Degree You Have Received? [id number] Information not available 12/23/2020 Are There Any Guns Present In Your Home? No Information not available 08/29/2018 Marital Status Informatio n not available 02/26/2016 What Was The Date Of Your Most Recent Tobacco Screening? 07/12/2024 Information not available 07/12/2024 Performs Monthly Self-breast Exam? Yes Information no t available 09/04/2019 What Is Your Relationship Status? Information not available 12/23/2020 Do You Use Your Seat Belt Or Car Seat Routinely? Yes [email or web address] Information not available 08/23/2020 Seat Belts Used Routinely Yes Information not available 08/29/2018 Do You Have Smoke And Carbon Monoxide Detectors In Your Home? Yes [email or web address] Information not available 08/23/2020 How Much Tobacco Do You Smoke? No Information not available 04/26/2019 General Stress Level Medium [email or web address] Information not available 12/13/2019 Do You Use Sunscreen Routinely? Yes When Needed Information not available 08/29/2018 Has Tobacco Cessation Counseling Been Provided? Yes [email or web address] Information not available 12/18/2022 On What Date Was Tobacco Cessation Counseling Provided? 07/12/2024 Information not available 07/12/2024 Sex: Female Functional Status Question Answer Note LastModified by Organizat ion Details LastModified Time Do you use any illicit or recreational drugs? No [email or web address] Information not available 08/23/2020 Do you or have you ever used any other forms of tobacco or nicotine? No [email or web address] Information not available 08/23/2020 What is your level of alcohol consumption? None Rarely Information not available 07/12/2024 Do you or have you ever used smokeless tobacco? Never used smokeless tobacco Information not available 04/26/2019 Are you currently employed? No Information not available 12/23/2020 Are you able to care for yourself? 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 Never used electronic cigarettes Information not available 04/26/2019 What is your exercise level? Occasional Walk [email or web address] Information not available 12/19/2021 Mental Status Question Answer Note LastModified by Organization D etails LastModified Time Do you feel stressed (tense, restless, nervous, or anxious, or unable to sleep at night)? [id number] Information not available 12/23/2020 Family History Relationship Description Onset Age of this Age Resolved Age Notes LastModified by Organization Details LastModified Time Mother Diabetes mellitus [email or web address] Not available 2015 14:13:19 Mother Family history of Angina [email or web address] Not available 2015 14:13:19 Father History of malignant neoplasm Not available 2024 14:57:31 Brother History of malignant neoplasm Not available 2024 14:57:31 Brother History of malignant neoplasm Not available 2024 14:57:31 Brother History of malignant neoplasm Not available 2024 14:57:31 Brother Diabetes mellitus Not available 2024 14:57:37 Brother Diabetes mellitus Not available 2024 14:57:40 Sister History of malignant neoplasm Not available 2024 14:57:31 Sister Diabetes mellitus Not available 2024 14:57:51 Medical History Condition Response Anxiety Disorder N Diabetes N Muscle, Joint, or Bone Problems Y Coronary Artery Disease N Atrial Fibrillation N High Blood Pressure Y Seizures/Epilepsy N Acid Reflux (GERD) N Cancer N Stroke N Thyroid Problems N Kidney or Bladder Problems Y Asthma N Allergies N Blood Clots N COPD N Depression N GI Problems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
--- OUTSIDE RECORDS SUMMARY | 2024-08-04 11:56 | XMS_ITS | Clinical Summary ---
Author Organization [facility] Facility Address [address] [address] Care Team Providers Care Corporate Sales Trainer Name Role Phone Tato Damon MD Primary Care Provider [phone] Allergies No known active allergies Medications aspirin [...] age to complete this topic Care Teams Corporate Sales Trainer Relationship Specialty Start Date End Date Tato Damon MD [address] [place] [id number] PCP - General Internal Medicine 06/27/21
--- NOTE | 2024-08-04 11:59 | ECG_ITS ---
Test Date: 2024-08-04 12:27:24 Measurements Intervals Dowell Rate: 141 P: 0 DC: 0 QRS: 11 QRSD: 99 T: 102 QT: 234 QTc: 359 Interpretive Statements ATRIAL FIBRILLATION WITH RAPID VENTRICULAR RESPONSE LOW QRS VOLTAGE IN PRECORDIAL LEADS [QRS DEFLECTION < 1.0 mV IN CHEST LEADS] NONSPECIFIC ST & T-WAVE ABNORMALITY No previous ECG available for comparison Electronically Signed On 08-04-2024 12:35:23 CDT by Lidya Giron M.D.
--- OUTSIDE RECORDS SUMMARY | 2024-08-04 12:29 | XMS_ITS | Continuity of Care Document ---
Author Organization [facility] Address [address] [place] [address] Phone Care Team Providers Care Production Line Operator Name Role Phone Vanita Dowd MD Unavailable Unavailable Procedures Procedure Date Post-op Follow-up Visit Post-op Follow-up Visit Remove Cataract, Insert Lens Office Consultation Echo Exam Of Eye Advance Directives Directive Yes / No Effective Date File Name No Information Encounters Encounter Description Practice Location Reason(s) For Visit Diagnoses Date Provider Providers Copied on Encounter [facility], [id number] [place] [address] [address], [place], [place], [id number], [place] tel:[phone] SEC Bhupinder MOBLEY Professional No Information [address]. [address] [facility] [place], [address], [place]. tel:[phone] Referring Provider: Kelly Borges, [address] [place] [address] [place], [address]. [facility], [address], [place], [place], [id number], [place] tel:[phone] SEC Bhupinder ITZ Professional No Information [address]. [address] [facility], [facility], [place], [address], [place]. tel:[phone] [facility], [address] [place] [address] [address], [place], [place], [address], tel:[phone] [facility] No Information Nile Waldron. [address], [facility] [place], [address], [place]. tel:[phone] Referring Provider: Kelly Borges, [address] [place] [address] Eye [facility], [place], [address]. Office Consultation [facility] Eye [facility], [address], [place], [place], [address], [phone] SEC Bhupinder [place] Professional No Information Nile Waldron. [address], [facility] [place], [address], [place]. tel:[phone] Referring Provider: Kelly Borges, [address] [place] [address] Eye [facility], [place], [address]. Family History Family Member Type Diagnosis Age At Onset No Information Payers Payer name Insurance type Covered democrat ID Authoriza tion(s) No Information Social History [...]
--- OUTSIDE RECORDS SUMMARY | 2024-08-04 12:29 | XMS_ITS | Clinical Summary ---
Author Organization [facility] Facility Address [address] [address] Care Team Providers Care Supervising Nurse Name Role Phone Tato Damon MD Primary Care Provider [phone] Allergies No known active allergies Medications aspirin [...] age to complete this topic Care Teams Supervising Nurse Relationship Specialty Start Date End Date Tato Damon MD [address] [place] [id number] PCP - General Internal Medicine 06/27/21
[2024-08-04 12:43] LABS: Basophils Absolute Auto 0.07 K/mm3 (0.00-0.10); Basophils Percent Auto 0.7 % (0.0-1.0); Eosinophils Absolute Auto 0.13 K/mm3 (0.02-0.50); Eosinophils Percent Auto 1.2 % (1.0-6.0); Hemoglobin 10.9 g/dL (11.7-13.8); Immature Granulocyte Absolute 0.08 K/mm3 (0.00-0.00); Immature Granulocyte Percent A 0.7 % (0.0-0.0); Lymphocytes Absolute Auto 1.37 K/mm3 (1.10-4.50); Lymphocytes Percent Auto 12.8 % (18.0-42.0); Mean Corpuscular HGB Conc 32.1 g/dL (32-36); Mean Corpuscular Hemoglobin 30.9 pg (27.0-31.0); Mean Corpuscular Volume 96.3 fL (78.0-102.0); Mean Platelet Volume 10.2 fl (9.2-11.8); Monocytes Absolute Auto 1.13 K/mm3 (0.10-0.90); Monocytes Percent Auto 10.6 % (2.0-11.0); Platelet Count Result 236 K/mm3 (150-420); Red Blood Count 3.53 M/mm3 (4.20-5.40); Red Cell Distribution Width 14.1 % (11.6-14.4); White Blood Count 10.7 K/mm3 (4.8-10.8)
[2024-08-04] MEDS: dilTIAZem HCl INJ 25 MG/5 ML VIAL 10 MG IV PUSH (12:46)
--- NOTE | 2024-08-04 12:51 | ED_ITS ---
HPI - Weakness General Chief complaint: Weakness Stated complaint: weakness Time Seen by Provider: 08/04/24 11:58 Source: patient and family Mode of arrival: wheelchair Limitations: clinical condition History of Present Illness HPI Narrative: Patient is a 79-year-old female who was in the emergency room for weakness the other night and was discharged home. She is return for generalized weakness and now that appears to be worse according to the family. New onset AFib per EMS finding on EKG. She has elevated heart rate. Family says she is getting confused at times. MD Complaint: generalized weakness Onset (ago): month(s) ( 2-3; worsening weakness over the last couple of days) Duration: constant Location: generalized Migration: none Severity: moderate Severity scale (1-10): 5 Quality: other ( no pain) Relieving factors: none Exacerbating factors: none Context: other ( patient lives alone and now with the family and they are seeing a lot of her generalized weakness and possibly not taking her medication) Associated symptoms: confusion Related Data Home Medications ?Medication ?Instructions ?Recorded ?Confirmed ?Last Taken ?Type allopurinol 100 mg tablet 100 mg PO DAILY 08/04/24 Unknown History atorvastatin 20 mg tablet 20 mg PO DAILY 08/04/24 Unknown History latanoprost 0.005 % eye drops 1 drp RIGHT EYE QPM 08/04/24 Unknown History losartan 50 mg-hydrochlorothiazide 1 tablet PO DAILY 08/04/24 Unknown History 12.5 mg tablet metoprolol tartrate 25 mg tablet 25 mg PO TID 08/04/24 Unknown History oxybutynin chloride 5 mg tablet See Rx Instructions PO .COMPLEX 08/04/24 Unknown History sertraline 50 mg tablet 50 mg PO DAILY 08/04/24 Unknown History tramadol 50 mg tablet 50 mg PO Q12H PRN pain 08/04/24 Unknown History Allergies Allergy/AdvReac Type Severity Reaction Status Date / Time No Known Allergies Allergy Verified 08/04/24 12:31 Review of Systems 2 Review of Systems: All systems reviewed & are unremarkable except as noted in HPI and below Constitutional: Constitutional: Reports no additional constitutional complaints Eyes: Eyes: Reports no additional eye complaints ENT: Reports system reviewed and no additional complaints, except as documented Cardiovascular: Cardiovascular: Reports no additional cardiovascular complaints Respiratory: Respiratory: Reports no additional respiratory complaints Gastrointestinal: Gastrointestinal: Reports no additional gastrointestinal complaints Genitourinary: Genitourinary: Reports no additional female genitourinary complaints Musculoskeletal: Musculoskeletal: Reports no additional musculoskeletal complaints Integumentary/Breasts: Skin/Breast: Reports system reviewed and no additional complaints, except as docu Neurologic: Reports system reviewed and no additional complaints, except as documented Psychiatric: Psychiatric: Reports no additional psychiatric complaints Endocrine: Endocrine: Reports no additional endocrine complaints Hematologic/Lymphatic: Hematologic/Lymphatic: Reports no additional hematologic/lymphatic complaints Allergic/Immunologic: Allergic/Immunologic: Reports no additional allergic/immunologic complaints Exam 2 Const: General: healthy appearing Nutritional Appearance: well nourished Orientation/consciousness: confusion Limitations: altered mental status HENMT: Head: normal to inspection Ears: external ears normal F alis/Nose/Sinus: Normal external nose present Eyes: Conjunctivae: conjunctivae normal Pupils: Equal, round and reactive pupils present EOM: EOMs intact bilaterally Neck: Neck: normal visual inspection Chest: Chest palpation & inspection: normal inspection of the chest Resp: Effort & Inspection: normal respiratory effort and not labored A uscultation: clear to auscultation bilaterally and no crackles Cardio: Rate: tachycardic Rhythm: abnormal rhythm irregularly irregular Heart sounds: no murmurs GI: Inspection: non-distended GI Palp: Yes Soft to palpation and No Tenderness to palpation present (GI) Auscultation: normal bowel sounds : General: Yes bladder normal to palpation Back/Spine/Pelvis: Back: no CVA tenderness Skin: General skin exam: normal color Rashes: no rashes Wounds: no wounds Other: Patient has a baseline pallor Neuro: General: No patient oriented x3, moves all extremities, no meningeal signs, no focal motor deficits and CN's II-XI intact bilaterally Cranial nerves: Yes Nystagmus not present Speech: normal speech Gait exam (Neuro): gait abnormal ( wheelchair) Other: fast exam negative, NIH score 0, GCS is 15 Extrem: General: normal to inspection Other: left lower extremity cellulitis appears to be mostly healed at this time and she is on doxycycline Psych: Mental Status: mental status grossly abnormal ( pleasantly confused) Affect: normal affect Attitude: cooperative Course Vital Signs Vital signs: Vital Signs Pulse Oximetry 98 08/04/24 11:54 Temperature 36.6 C 08/04/24 11:56 Pulse Rate 141 H 08/04/24 14:43 Respiratory Rate 21 H 08/04/24 12:45 Blood Pressure 106/84 08/04/24 13:31 Pulse Oximetry 95 08/04/24 13:45 Oxygen Delivery Room Air 08/04/24 11:56 MDM - Weakness MDM Narrative Medical decision making narrative: patient is a 79-year-old female who is brought by family for generalized weakness and was found to be in AFib with RVR. We will do complete workup at this time to include cardiac and sepsis. Lab Data Attestation: I reviewed the patient's lab results. 08/04/24 12:37 08/04/24 12:37 Labs: Lab Results 08/04/24 Range/Units 12:37 WBC 10.7 (4.8-10.8) K/mm3 RBC 3.53 L (4.20-5.40) M/mm3 Hgb 10.9 L (11.7-13.8) g/dL Hct 34.0 L (35.0-42.0) % MCV 96.3 (78.0-102.0) fL MCH 30.9 (27.0-31.0) pg MCHC 32.1 (32-36) g/dL RDW 14.1 (11.6-14.4) % Plt Count 236 (150-420) K/mm3 MPV 10.2 (9.2-11.8) fl Immature Gran % (Auto) 0.7 H (0.0-0.0) % Neut % (Auto) 74.0 H (50.0-70.0) % Lymph % (Auto) 12.8 L (18.0-42.0) % Radford % (Auto) 10.6 (2.0-11.0) % Eos % (Auto) 1.2 (1.0-6.0) % Baso % (Auto) 0.7 (0.0-1.0) % Lymph # (Auto) 1.37 (1.10-4.50) K/mm3 Radford # (Auto) 1.13 H (0.10-0.90) K/mm3 Eos # (Auto) 0.13 (0.02-0.50) K/mm3 Baso # (Auto) 0.07 (0.00-0.10) K/mm3 Abs Immat Gran (auto) 0.08 H (0.00-0.00) K/mm3 Absolute Neuts (auto) 7.90 H (1.70-7.20) K/mm3 Absolute Nucleated RBC 0.00 (0.00-0.00) K/mm3 Nucleated RBC % 0.0 (0-0.0) % PT 11.1 (9.50-12.1) Seconds INR 1.0 APTT 23.9 (23.9-30.70) Sec Sodium 134 L (137-145) mmol/L Potassium 3.3 L (3.4-5.0) mmol/L Chloride 101 (98-107) mmol/L Carbon Dioxide 30 (22-30) mmol/L Anion Gap 3 L (4-12) mmol/L BUN 24 H (7-17) mg/dL Creatinine 1.01 H (0.7-1.0) mg/dL Estim Creat Clear Calc 48 ml/min Estimated GFR 53 L (59 - ) Glucose 109 (65-110) mg/dL Calculated Osmolality 283 L (285-295) mOsm/kg Lactic Acid 2.4 H (0.4-2.0) mmol/L Calcium 8.5 (8.4-10.2) mg/dL Magnesium 1.7 (1.6-2.3) mg/dL Total Bilirubin 1.4 H (0.2-1.3) mg/dL AST 36 (14-36) U/L ALT 22 (6-35) U/L Alkaline Phosphatase 59 (38-126) U/L Troponin I 0.021 (0.000-0.034) ng/mL NT-Pro-B Natriuret Pep 8210 H (19.9-100) pg/mL Total Protein 6.3 (6.3-8.2) g/dL Albumin 3.1 L (3.5-5.1) g/dL Imaging Data Attestation: I personally reviewed and interpreted this imaging study as follows: ECG Data EKG #1: Attestation: I personally reviewed and interpreted this ECG as follows: ECG completion date: 08/04/24 ECG completion time: 12:56 EKG Interpretation: tachycardia, atrial fibrillation, non-specific ST changes, normal QRS, normal QT and NL axis Discharge Plan Discharge Clinical Impression: New onset a-fib, Elevated brain natriuretic peptide (BNP) level, Weakness Patient Disposition: Acute Care Hospital Condition: Stable Patient Language: Polish Prescriptions: No Action doxycycline hyclate 100 mg tablet 100 mg PO Q12H Qty: 20 0RF latanoprost 0.005 % drops 1 drp RIGHT EYE QPM atorvastatin 20 mg tablet 20 mg PO DAILY allopurinol 100 mg tablet 100 mg PO DAILY losartan-hydrochlorothiazide 50-12.5 mg tablet 1 tablet PO DAILY oxybutynin chloride 5 mg tablet See Rx Instructions PO .COMPLEX Patient Comments: 5MG IN THE MORNING 10MG IN THE EVENING Rx Instructions: orally; sertraline 50 mg tablet 50 mg PO DAILY metoprolol tartrate 25 mg tablet 25 mg PO TID tramadol 50 mg tablet 50 mg PO Q12H PRN (Reason: pain) Follow-up/Referrals: UNKNOWN,DOCTOR [Non-Staff] - Time of Disposition: 14:15
[2024-08-04 13:03] LABS: Partial Thromboplastin Time 23.9 Sec (23.9-30.70); Prothrombin Time 11.1 Seconds (9.50-12.1)
[2024-08-04 13:05] LABS: Alanine Aminotransferase 22 U/L (6-35); Albumin Level 3.1 g/dL (3.5-5.1); Alkaline Phosphatase 59 U/L (38-126); Anion Gap 3 mmol/L (4-12); Aspartate Amino Transferase 36 U/L (14-36); Bilirubin,Total 1.4 mg/dL (0.2-1.3); Blood Urea Nitrogen 24 mg/dL (7-17); Calcium 8.5 mg/dL (8.4-10.2); Carbon Dioxide 30 mmol/L (22-30); Chloride 101 mmol/L (98-107); Estimated CRCL calculation 48 ml/min; Estimated Glomerular Filt Rate 53; Glucose 109 mg/dL (65-110); Lactic Acid Reflex 2.4 mmol/L (0.4-2.0); Osmolality Calculated 283 mOsm/kg (285-295); Potassium 3.3 mmol/L (3.4-5.0); Sodium 134 mmol/L (137-145); Total Protein 6.3 g/dL (6.3-8.2)
[2024-08-04 13:14] LABS: NT Pro B Type Natriuretic Pept 8210 pg/mL (19.9-100)
--- NOTE | 2024-08-04 13:15 | PC.NURSE ---
Pt aware of UA order and will notify staff when she is able to provide a urine sample.
[2024-08-04 13:16] LABS: Magnesium 1.7 mg/dL (1.6-2.3)
[2024-08-04 13:43] LABS: Troponin I 0.021 ng/mL (0.000-0.034)
--- NOTE | 2024-08-04 14:36 | PC.NURSE ---
Pt placed on bedpan with but was unable to urinate. Attempted straight cath with no urine return. ERP aware.
[2024-08-04 14:41] LABS: Reflex Lactic Acid Yes or No Add Lactic
[2024-08-04] MEDS: POTASSIUM CHLORIDE 20 MEQ ER TABLET PO (14:43)
[2024-08-04] MEDS: METOPROLOL TARTRATE TAB 25 MG, METOPROLOL TARTRATE TAB 12.5 MG 37.5 MG PO (14:43)
[2024-08-04] MEDS: ENOXAPARIN 100 MG/ML SYRINGE SUB-Q (15:03)
[2024-08-04 15:13] LABS: Lactic Acid 1.4 mmol/L (0.7-2.0)
--- NOTE | 2024-08-06 13:59 | PC.NURSE ---
PRELIMINARY BLOOD CULTURE REPORT; NO GROWTH TO DATE.
--- NOTE | 2024-08-10 13:35 | PC.NURSE ---
final blood cultures x2 reviewed. no growth after 5 days. no change in plan of care
== END 2024-08-04 15:58 | disposition short-term general hospital (02) ==
PROVIDERS: Emergency Provider Emergency Medicine
DX: I48.91 Unspecified atrial fibrillation (principal); R79.89 Other specified abnormal findings of blood chemistry; R53.1 Weakness
CPT/HCPCS: 36415; 70450; 71045; 80053; 83605; 83735; 83880; 84484; 85025; 85610; 85730; 87040; 93005; 96372; 96374; 99285; A9270; J1650

== ENCOUNTER 2024-08-04 17:44 | Inpatient (IN) | payer MEDICARE, MEDICAID, SELFPAY ==
[2024-08-04] VITALS (7 sets, daily range): BP systolic 101–117; BP diastolic 70–87; PULSE 112–133; RESP 20; TEMP 36.8–37.2; O2SAT 96–97; BMI 42.0
--- NOTE | ~2024-08-04 | CT_ITS ---
EXAMINATION: CTA chest PE protocol DATE: 08/05/2024 00:13 INDICATION: Tachycardia. Elevated d-dimer. TECHNIQUE: Computed tomography (CT) pulmonary angiogram of the chest was performed with 100 mL Omnipa que-350 intravenous contrast. Additional 3D reconstructions utilizing coronal maximum intensity proje ction (MIP) were performed. Automated exposure control and iterative reconstruction technique were em ployed. The dose-length product was 916.37 mGy-cm. COMPARISON: None FINDINGS: No pulmonary embolism. Mild dependent atelectasis in bilateral lower lobes. Subtle mosaic attenuation with extensive groundglass opacities in both lungs most likely also related to atelectasis due to pa rtially expiratory phase of imaging with concave posterior wall of the trachea and mainstem bronchi. No pleural effusion or pneumothorax. Cardiomegaly. Atherosclerotic coronary artery calcifications. Ao rtic valve and mitral annular calcification. No pericardial effusion. Thoracic aorta is normal in benedicto iber with no dissection. No pathologically enlarged thoracic lymphadenopathy. Cholecystectomy clips t he gallbladder fossa. Partially visualized supra umbilical ventral hernia containing fat and a portio n of the transverse colon. Severe spondylosis from the lower cervical through the upper lumbar spine. Chronic mild anterior wedging of a few lower thoracic vertebral bodies. IMPRESSION: 1. No pulmonary embolism. 2. Groundglass opacities in both lungs and favor atelectasis related to expiratory phase of imaging o umang mild pulmonary edema or pneumonia. 3. Partially visualized supraumbilical ventral hernia containing fat and a portion of the transverse colon. 4. Cardiomegaly. Reviewed, dictated and finalized at location A. IMPRESSION: 1. No pulmonary embolism. 2. Groundglass opacities in both lungs and favor atelectasis related to expirat ory phase of imaging over mild pulmonary edema or pneumonia. 3. Partially visualized supraumbilical ventral hernia containing fat and a port ion of the transverse colon. 4. Cardiomegaly.
--- OUTSIDE RECORDS SUMMARY | 2024-08-04 16:39 | XMS_ITS | Continuity of Care Document ---
Author Organization [facility] Address [address] [place] [address] Phone Care Team Providers Care Package Sealer Machine Name Role Phone Vanita Dowd MD Unavailable Unavailable Procedures Procedure Date Post-op Follow-up Visit Post-op Follow-up Visit Remove Cataract, Insert Lens Office Consultation Echo Exam Of Eye Advance Directives Directive Yes / No Effective Date File Name No Information Encounters Encounter Description Practice Location Reason(s) For Visit Diagnoses Date Provider Providers Copied on Encounter [facility], [address] [place] [address] [address], [place], [place], [id number], [place] tel:[phone] SEC Bhupinder MOBLEY Professional No Information [address]. [address] [facility] [place], [address], [place]. tel:[phone] Referring Provider: Kelly Borges, [address] [place] [address] [place], [address]. [facility], [address], [place], [place], [address], [place] tel:[phone] SEC Bhupinder ITZ Professional No Information [address]. [address] [facility], [place], [address], [place]. tel:[phone] [facility], [address] [place] [address] [address], [place], [place], [address], tel:[phone] [facility] No Information Nile Waldron. [address], [place], [address], [place]. tel:[phone] Referring Provider: Kelly Borges, [address] [place] [address] Eye [facility], [place], [address]. Office Consultation [facility] Eye [facility], [address], [place], [place], [address], [phone] SEC Bhupinder [place] Professional No Information [address]. [address], [place], [address], [place]. tel:[phone] Referring Provider: Kelly Borges, [address] [place] [address] Eye [facility], [place], [address]. Family History Family Member Type Diagnosis Age At Onset No Information Payers Payer name Insurance type Covered libertarian ID Authoriza tion(s) No Information Social History [...]
--- OUTSIDE RECORDS SUMMARY | 2024-08-04 16:39 | XMS_ITS | Clinical Summary ---
Author Organization [facility] Facility Address [address] [address] Care Team Providers Care Mail Processor Name Role Phone Tato Damon MD Primary Care Provider [phone] Allergies No known active allergies Medications aspirin [...] age to complete this topic Care Teams Mail Processor Relationship Specialty Start Date End Date Tato Damon MD [address] [id number] PCP - General Internal Medicine 06/27/21
--- NOTE | 2024-08-04 16:47 | ADMGEN ---
This patient, Tiana Wilson, was admitted to IMU Room 213-01 at 1629. Patient/family oriented to hospital policies and general routines including ID bracelet, bed and alarms, visiting hours, pain management, procedures, bathroom and other care routines, personal items, smoking policy, room service/diet, and visiting hours. Information on how to activate the Rapid Response Team has been discussed. Patient/Family are encouraged to report perceived risks to care and to ask questions if they do not understand what they are told or what they should do.
--- NOTE | 2024-08-04 17:45 | PM.IMHP ---
H&P: HPI History of Present Illness Date/Time: 08/04/24 19:00 Chief Complaint: New onset atrial fibrillation with rapid ventricular response. Narrative: This is a 79-year-old female with history of hypertension, hyperlipidemia, chronic kidney disease, glaucoma, overactive bladder, and depression who is being directly admitted to the IMU from the emergency department at [facility] for further treatment and evaluation after she was found to be in atrial fibrillation with rapid ventricular response, presumably new onset. The patient provides the following history and her son and [id number] provide additional information with the patient's permission. She lives alone and ambulates with a wheeled walker. Over some months she has become increasingly weak and deconditioned and she has had a couple of falls requiring lift assist. She has help at home 3 days a week and she recently started physical therapy but family believes that she needs more care. Earlier this week she developed erythema and edema of the left lower leg and was seen in [place] at which time she was prescribed doxycycline for cellulitis with marked improvement. Lower extremity venous Doppler ultrasound was negative for DVT at that time. Today she was brought in for evaluation due to ongoing weakness which seems to be getting worse. It is now to the point where she is afraid to stand as she is worried about falling. She denies syncope, near syncope, vertigo, chest pain, palpitations, orthopnea, shortness of breath, nausea, vomiting, and diarrhea. She has intermittent dysuria and reports ongoing issues with incontinence which may be related to the fact that she is having difficulties getting up to the bathroom. In the ED: She was found to be in atrial fibrillation with rapid ventricular response, presumably a new diagnosis however the patient is prescribed metoprolol tartrate 3 times a day which is somewhat of an unusual dose. Labs were significant for hemoglobin of 10.9, sodium 134, potassium 3.3, BUN 24, creatinine 1.10, lactic acid 2.4, proBNP 8210. Head CT and chest x-ray were without acute findings. EKG showed rapid atrial fibrillation with low QRS voltage in the precordial leads and nonspecific ST T-wave abnormalities. She was given diltiazem 10 mg IV and a p.o. dose of metoprolol tartrate and she is being transferred to the IMU in this setting for further treatment and workup. Review of Systems Review of Systems: 12 systems were reviewed and are negative except for as per HPI. FORMERLY [facility], [facility] Past Medical History Medical History Chronic kidney disease, stage 3 Overactive bladder Depression Hyperlipidemia Hypertension Glaucoma Surgical History Surgical History (Updated 08/04/24 @ 20:15 by Tanya Boothe PA-C) History of hysterectomy History of bilateral hip replacements History of bilateral knee replacement History of cholecystectomy Social History Social History Social History: Healthcare power of insurance attorney: Leo Vallejo, son ([phone]). Code status: Full code. Smoking status: Never smoker Alcohol intake: never Substance use: never Substance use type: does not use Do You Feel Safe in your Home?: Yes Lack of Transportation: No Lack of Food: Never True Current Housing: I Have Housing Concerned About Future Housing: No Difficulty Paying Gas/Electric Bills: No Difficulty Paying for Meds: No Currently Unemployed: No Education: Don't Know Difficulty w/ Childcare or Family Care: No Spiritual care concerns: No Meds Home Medications and Allergies Home Medications ?Medication ?Instructions ?Recorded ?Confirmed ?Type doxycycline hyclate 100 mg tablet 100 mg PO Q12H #20 tabs 08/01/24 08/04/24 Rx allopurinol 100 mg tablet 100 mg PO DAILY 08/04/24 08/04/24 History atorvastatin 20 mg tablet 20 mg PO DAILY 08/04/24 08/04/24 History latanoprost 0.005 % eye drops 1 drp RIGHT EYE QPM 08/04/24 08/04/24 History losartan 50 mg-hydrochlorothiazide 1 tablet PO DAILY 08/04/24 08/04/24 History 12.5 mg tablet metoprolol tartrate 25 mg tablet 25 mg PO TID 08/04/24 08/04/24 History oxybutynin chloride 5 mg tablet See Rx Instructions PO .COMPLEX 08/04/24 08/04/24 History sertraline 50 mg tablet 50 mg PO DAILY 08/04/24 08/04/24 History tramadol 50 mg tablet 50 mg PO Q12H PRN pain 08/04/24 08/04/24 History Allergies Allergy/AdvReac Type Severity Reaction Status Date / Time No Known Allergies Allergy Verified 08/04/24 12:31 Vital Signs Vital Signs - 24 hr 08/04/24 16:55 08/04/24 17:05 Temperature 98.9 F Pulse Rate 133 H Respiratory Rate 20 Blood Pressure 117/87 Pulse Oximetry 97 Oxygen Delivery Room Air Exam Narrative: General: Well-developed, nontoxic-appearing female sitting up in bed in no acute distress. She is in good spirits. Weight: 107.5 kg. BMI: 42.0. HEENT: PERRL, EOMI. Sclera anicteric. Oral mucosa moist. Neck: Supple. No JVD. Respiratory: Lungs are clear to auscultation bilaterally. Cardiovascular: Irregularly irregular rate and rhythm. Telemetry shows atrial fibrillation with rates between the low 1 teens and 140s. Systolic murmur heard at the upper sternal border. Gastrointestinal: Abdomen is soft, obese nontender, and nondistended with positive bowel sounds. Good sized ventral hernia which is reducible and without pain. Skin: Warm and dry. Faint erythema of the left lower leg. Skin is dry. Extremities: No cyanosis or clubbing. Trace lower extremity edema bilaterally. Radial and pedal pulses intact. Neurological: Alert. Cranial nerves 2-12 are grossly intact. No gross focal deficits to casual conversation. Psychiatric: Pleasant and cooperative with appropriate mood and affect. H&P: Results Labs Labs: Labs from outside facility: 08/04/24 Range/Units 12:37 WBC 10.7 (4.8-10.8) K/mm3 RBC 3.53 L (4.20-5.40) M/mm3 Hgb 10.9 L (11.7-13.8) g/dL Hct 34.0 L (35.0-42.0) % MCV 96.3 (78.0-102.0) fL MCH 30.9 (27.0-31.0) pg MCHC 32.1 (32-36) g/dL RDW 14.1 (11.6-14.4) % Plt Count 236 (150-420) K/mm3 MPV 10.2 (9.2-11.8) fl Immature Gran % (Auto) 0.7 H (0.0-0.0) % Neut % (Auto) 74.0 H (50.0-70.0) % Lymph % (Auto) 12.8 L (18.0-42.0) % Hardeman % (Auto) 10.6 (2.0-11.0) % Eos % (Auto) 1.2 (1.0-6.0) % Baso % (Auto) 0.7 (0.0-1.0) % Lymph # (Auto) 1.37 (1.10-4.50) K/mm3 Hardeman # (Auto) 1.13 H (0.10-0.90) K/mm3 Eos # (Auto) 0.13 (0.02-0.50) K/mm3 Baso # (Auto) 0.07 (0.00-0.10) K/mm3 Abs Immat Gran (auto) 0.08 H (0.00-0.00) K/mm3 Absolute Neuts (auto) 7.90 H (1.70-7.20) K/mm3 Absolute Nucleated RBC 0.00 (0.00-0.00) K/mm3 Nucleated RBC % 0.0 (0-0.0) % PT 11.1 (9.50-12.1) Seconds INR 1.0 APTT 23.9 (23.9-30.70) Sec Sodium 134 L (137-145) mmol/L Potassium 3.3 L (3.4-5.0) mmol/L Chloride 101 (98-107) mmol/L Carbon Dioxide 30 (22-30) mmol/L Anion Gap 3 L (4-12) mmol/L BUN 24 H (7-17) mg/dL Creatinine 1.01 H (0.7-1.0) mg/dL Estim Creat Clear Calc 48 ml/min Estimated GFR 53 L (59 - ) Glucose 109 (65-110) mg/dL Calculated Osmolality 283 L (285-295) mOsm/kg Lactic Acid 2.4 H (0.4-2.0) mmol/L Calcium 8.5 (8.4-10.2) mg/dL Magnesium 1.7 (1.6-2.3) mg/dL Total Bilirubin 1.4 H (0.2-1.3) mg/dL AST 36 (14-36) U/L ALT 22 (6-35) U/L Alkaline Phosphatase 59 (38-126) U/L Troponin I 0.021 (0.000-0.034) ng/mL NT-Pro-B Natriuret Pep 8210 H (19.9-100) pg/mL Total Protein 6.3 (6.3-8.2) g/dL Albumin 3.1 L (3.5-5.1) g/dL Imaging CT scan - head: Radiologist's impression: No significant abnormality seen. Chest x-ray: Radiologist's impression: No acute cardiopulmonary disease. Assessment and Plan Assessment and plan (1) Atrial fibrillation with rapid ventricular response: Code(s): I48.91 - Unspecified atrial fibrillation Status: Acute (2) Hypokalemia: Code(s): E87.6 - Hypokalemia Status: Acute (3) Chronic kidney disease, stage 3: Code(s): N18.30 - Chronic kidney disease, stage 3 unspecified Status: Acute (4) Hypertension: Code(s): I10 - Essential (primary) hypertension Status: Acute (5) Hyperlipidemia: Code(s): E78.5 - Hyperlipidemia, unspecified Status: Acute (6) Glaucoma: Code(s): H40.9 - Unspecified glaucoma Status: Acute Plan The patient presented to the emergency department at the outside facility for evaluation of weakness and was found to be in atrial fibrillation with rapid ventricular response as detailed in HPI. Labs, imaging, EKG, and all reports were personally reviewed. She has no known history of atrial fibrillation but is a metoprolol tartrate 3 times a day which is quite unusual. Continue with metoprolol for now and initiate Cardizem drip as her rate still remains quite high. She received a dose of enoxaparin 1 mg/kg at the outside facility. Long discussion with the patient and her family members regarding risk versus benefit of anticoagulation and at this time we will hold on initiating a DOAC pending cardiology and therapy input. Echocardiogram an apnea link ordered. TSH is within normal limits. ProBNP is quite elevated though she really appears euvolemic. Pulmonary embolism is considered as a D-dimer done earlier this week was elevated however left lower extremity Doppler was negative for DVT. Recheck D-dimer and obtain chest CTA if significantly elevated. Kidney function is stable on review of previous labs. Blood pressures are reasonable and will be monitored. Replace potassium and monitor. The rest of her home medications will be reviewed and resumed as appropriate. Findings and treatment plan were discussed with the patient. Questions were solicited and answered to satisfaction. The patient's medical management will be taken over by the hospitalist team in a.m. Quality VTE Prophylaxis VTE prophylaxis: pharmacologic ordered Hospitalist MIPS Advance Care Plan I have confirmed that the patient's Advanced Care Plan is present, code status is documented, or surrogate decision maker is listed in patient medical record.: Yes Medication Reconciliation I have utilized all available resources to obtain, update and review the patients current medications (includes all prescriptions, OTC, herbals, cannabis, and nutritional supplements).: Yes
--- OUTSIDE RECORDS SUMMARY | 2024-08-04 17:49 | XMS_ITS | Continuity of Care Document ---
Author Organization Merged with [facility] Address [address] [facility] [place] [address] Phone Care Team Providers Care Farm Reporter Name Role Phone Vanita Dowd MD Unavailable Unavailable Procedures Procedure Date Post-op Follow-up Visit Post-op Follow-up Visit Remove Cataract, Insert Lens Office Consultation Echo Exam Of Eye Advance Directives Directive Yes / No Effective Date File Name No Information Encounters Encounter Description Practice Location Reason(s) For Visit Diagnoses Date Provider Providers Copied on Encounter [facility], [id number] [place] [address] [address], [place], [place], [id number], [place] tel:[phone] SEC Bhupinder MOBLEY Professional No Information [address]. [address] [facility], [place], [address], [place]. tel:[phone] Referring Provider: Kelly Borges, [address] [place] [address] [place], [address]. [facility], [address], [place], [place], [address], [place] tel:[phone] SEC Bhupinder ITZ Professional No Information [address]. [address] [facility], [place], [address], [place]. tel:[phone] [facility], [address] [place] [address] [address], [place], [place], [address], tel:[phone] [facility] No Information Nile [address]ron. [address], [facility], [address], [place]. tel:[phone] Referring Provider: Kelly Borges, [address] [place] [address] Eye [facility], [place], [address]. Office Consultation [facility] Eye [facility], [address], [place], [place], [id number], [phone] SEC Bhupinder [place] Professional No Information [address]ron. [address], [facility], [address], [place]. tel:[phone] Referring Provider: Kelly Borges, [address] [place] [address] Eye [facility], [place], [address]. Family History Family Member Type Diagnosis Age [...]
--- OUTSIDE RECORDS SUMMARY | 2024-08-04 17:49 | XMS_ITS | Clinical Summary ---
Author Organization [facility] Address [address] [address] Care Team Providers Care Cement Mason Name Role Phone Tato Damon MD Primary Care Provider [phone] Allergies No known active allergies Medications aspirin [...] age to complete this topic Care Teams Cement Mason Relationship Specialty Start Date End Date Tato Damon MD [address] [id number] PCP - General Internal Medicine 06/27/21
[2024-08-04 18:42] LABS: Anion Gap 6 mmol/L (4-12); Blood Urea Nitrogen 24 mg/dL (7-17); Calcium 8.3 mg/dL (8.4-10.2); Carbon Dioxide 28 mmol/L (22-30); Chloride 98 mmol/L (98-107); Estimated CRCL calculation 48 ml/min; Estimated Glomerular Filt Rate 53; Glucose 110 mg/dL (65-110); Potassium 3.2 mmol/L (3.4-5.0); Sodium 132 mmol/L (137-145)
[2024-08-04] MEDS: dilTIAZem 100 MG/100 ML 100 MG/100 ML BAG IV CONT (18:42)
[2024-08-04] MEDS: DOXYCYCLINE HYCLATE 100 MG TABLET PO (18:43)
[2024-08-04] MEDS: oxyBUTYnin CHLORIDE 5 MG TABLET 10 MG PO (18:43)
[2024-08-04] MEDS: LATANOPROST 0.005% OP SOLN 2.5 ML BTL 1 DROP RIGHT EYE (18:44)
[2024-08-04] MEDS: METOPROLOL TARTRATE 25 MG TABLET PO ×2 (18:44→20:58)
[2024-08-04 18:55] LABS: Troponin I 0.014 ng/mL (0.000-0.034)
[2024-08-04] MEDS: POTASSIUM CHLORIDE 20 MEQ ER TABLET 40 MEQ PO (20:58)
[2024-08-04 21:05] LABS: D Dimer 3.34 ug/mL (<0.48)
[2024-08-05] VITALS (20 sets, daily range): BP systolic 90–139; BP diastolic 34–86; PULSE 91–130; RESP 12–20; TEMP 36.8–37.3; O2SAT 95–98
[2024-08-05] MEDS: SODIUM CHLORIDE 0.9% IV 1,000 ML 250 ML IV CONT (02:49)
--- NOTE | 2024-08-05 03:49 | PCRCNOTE ---
Patient refused apnea link last night (08/04). Patient said, I can do it, just not tonight.
[2024-08-05] MEDS: DOXYCYCLINE HYCLATE 100 MG TABLET PO ×2 (05:20→18:00)
[2024-08-05 05:53] LABS: Hematocrit 31.1 % (37.0-47.0); Hemoglobin 9.9 g/dL (12.0-15.0); Mean Corpuscular HGB Conc 31.8 g/dl (32-36); Mean Corpuscular Hemoglobin 31.1 pg (26-34); Mean Corpuscular Volume 97.8 fl (80-100); Mean Platelet Volume 9.8 fl (7.4-10.4); Platelet Count Result 250 k/mm3 (150-375); Red Blood Count 3.18 M/mm3 (4.2-5.4); Red Cell Distribution Width 14.1 % (11.5-14.5); White Blood Count 9.6 K/mm3 (4.5-10.0)
[2024-08-05 06:05] LABS: Anion Gap 7 mmol/L (4-12); Blood Urea Nitrogen 24 mg/dL (7-17); Calcium 8.2 mg/dL (8.4-10.2); Carbon Dioxide 24 mmol/L (22-30); Chloride 102 mmol/L (98-107); Estimated CRCL calculation 49 ml/min; Estimated Glomerular Filt Rate 54; Glucose 96 mg/dL (65-110); Magnesium 1.7 mg/dL (1.6-2.3); Potassium 3.7 mmol/L (3.4-5.0); Sodium 133 mmol/L (137-145)
[2024-08-05] MEDS: dilTIAZem 100 MG/100 ML 100 MG/100 ML BAG IV CONT (06:53)
[2024-08-05] MEDS: PERFLUTREN LIPID MICROSPHERES 1.5 ML VIAL DILUTED TO 10 ML TOTAL VOLUME IV PUSH (08:45)
--- NOTE | 2024-08-05 09:20 | IVDEFINITY ---
Prior to administration of IV Definity the patient was educated on the risks and benefits of the imaging enhancing agent including potential adverse side effects. The patient verbalized understanding. Allergies were verified. No exclusion criteria were identified and at least one of the following inclusion criteria were met: 1) physician request, 2) patient technically difficult to image (per the [place] [employer]chocardi[employer] guidelines of two or more segments not discernable within the apical view), or 3) questionable left ventricular function. ?
[2024-08-05] MEDS: ATORVASTATIN 20 MG TABLET PO (09:49)
[2024-08-05] MEDS: ENOXAPARIN 40 MG/0.4 ML SYRINGE SUB-Q (09:50)
[2024-08-05] MEDS: allopurinoL 100 MG TABLET PO (09:50)
[2024-08-05] MEDS: SERTRALINE HCL 50 MG TABLET PO (09:50)
[2024-08-05] MEDS: LOSARTAN POTASSIUM 50 MG TABLET PO (09:50)
[2024-08-05] MEDS: MAGNESIUM OXIDE 400 MG TABLET PO (09:50)
[2024-08-05] MEDS: METOPROLOL TARTRATE 25 MG TABLET PO (09:51)
[2024-08-05] MEDS: oxyBUTYnin CHLORIDE 5 MG TABLET PO (09:51)
--- NOTE | 2024-08-05 15:29 | P.PNIM_ITS ---
Progress Note: A&P Assessment and Plan (1) Atrial fibrillation with rapid ventricular response: Code(s): I48.91 - Unspecified atrial fibrillation Status: Acute (2) Hypokalemia: Code(s): E87.6 - Hypokalemia Status: Acute (3) Chronic kidney disease, stage 3: Code(s): N18.30 - Chronic kidney disease, stage 3 unspecified Status: Acute (4) Hypertension: Code(s): I10 - Essential (primary) hypertension Status: Acute (5) Hyperlipidemia: Code(s): E78.5 - Hyperlipidemia, unspecified Status: Acute (6) Glaucoma: Code(s): H40.9 - Unspecified glaucoma Status: Acute Plan The patient presented to the emergency department at the outside facility for evaluation of weakness and was found to be in atrial fibrillation with rapid ventricular response as detailed in HPI. Labs, imaging, EKG, and all reports were personally reviewed. She has no known history of atrial fibrillation but is a metoprolol tartrate 3 times a day which is quite unusual. Continue with metoprolol for now and initiate Cardizem drip as her rate still remains quite high. She received a dose of enoxaparin 1 mg/kg at the outside facility. Long discussion with the patient and her family members regarding risk versus benefit of anticoagulation and at this time we will hold on initiating a DOAC pending cardiology and therapy input. Echocardiogram an apnea link ordered. TSH is within normal limits. ProBNP is quite elevated though she really appears euvolemic. Pulmonary embolism is considered as a D-dimer done earlier this week was elevated however left lower extremity Doppler was negative for DVT. Recheck D-dimer and obtain chest CTA if significantly elevated. Kidney function is stable on review of previous labs. Blood pressures are reasonable and will be monitored. Replace potassium and monitor. The rest of her home medications will be reviewed and resumed as appropriate. Findings and treatment plan were discussed with the patient. Questions were solicited and answered to satisfaction. The patient's medical management will be taken over by the hospitalist team in a.m. 79 y/o had been complaints of weakness and lower extremities cellulitis, patient cellulitis was recently treated with doxycycline and which has improved however her weakness and difficulty with ADL brought to outside ER and was found to have new onset Atrial fibrillation with RVR. patient was transferred to the hospital for further evaluation patient was started on Diltiazem drip 5mg, her HR did trended down but remain in upper 130 and increased diltiazem drip to 7.5mg, patient will be seen by horticultural farmworker and further recommendation to follow. moody schneider cardiac ECHO is pending. Subjective Date/time seen: 08/05/24 15:29 Interval history: New onset atrial fibrillation with rapid ventricular response. H&P-Narrative: This is a 79-year-old female with history of hypertension, hyperlipidemia, chron ic kidney disease, glaucoma, overactive bladder, and depression who is being directly admitted to the IMU from the emergency department at [facility] for further treatment and evaluation after she was found to be in atrial fibrillation with rapid ventricular response, presumably new onset. The patient provides the following history and her son and [id number] provide additional information with the patient's permission. She lives alone and ambulates with a wheeled walker. Over some months she has become increasingly weak and deconditioned and she has had a couple of falls requiring lift assist. She has help at home 3 days a week and she recently started physical therapy but family believes that she needs more care. Earlier this week she developed erythema and edema of the left lower leg and was seen in [facility] at which time she was prescribed doxycycline for cellulitis with marked improvement. Lower extremity venous Doppler ultrasound was negative for DVT at that time. Today she was brought in for evaluation due to ongoing weakness which seems to be getting worse. It is now to the point where she is afraid to stand as she is worried about falling. She denies syncope, near syncope, vertigo, chest pain, palpitations, orthopnea, shortness of breath, nausea, vomiting, and diarrhea. She has intermittent dysuria and reports ongoing issues with incontinence which may be related to the fact that she is having difficulties getting up to the bathroom. In the ED: She was found to be in atrial fibrillation with rapid ventricular response, presumably a new diagnosis however the patient is prescribed metoprolol tartrate 3 times a day which is somewhat of an unusual dose. Labs were significant for hemoglobin of 10.9, sodium 134, potassium 3.3, BUN 24, creatinine 1.10, lactic acid 2.4, proBNP 8210. Head CT and chest x-ray were without acute findings. EKG showed rapid atrial fibrillation with low QRS voltage in the precordial leads and nonspecific ST T-wave abnormalities. She was given diltiazem 10 mg IV and a p.o. dose of metoprolol tartrate and she is being transferred to the IMU in this setting for further treatment and workup. 79 y/o had been complaints of weakness and lower extremities cellulitis, patient cellulitis was recently treated with doxycycline and which has improved however her weakness and difficulty with ADL brought to outside ER and was found to have new onset Atrial fibrillation with RVR. patient was transferred to the hospital for further evaluation patient was started on Diltiazem drip 5mg, her HR did trended down but remain in upper 130 and increased diltiazem drip to 7.5mg, patient will be seen by horticultural farmworker and further recommendation to follow. patient cardiac ECHO is pending. Review of Systems Review of Systems: 12 systems were reviewed and are negativ e except for as per HPI. Exam Narrative: Morbidly obese Patient is comfortable, NAD HEENT: eyes are clear and none icteric LUNGS:CTA HEART: Irregularly irregular ABD: BS+, Soft and nontender Lower extremities: no edema SKIN: nonjaundiced Neuro: grossly intact. Objective Data Vital Signs Vital Signs: Vital Signs - 24 hr 08/04/24 16:55 08/04/24 17:05 08/04/24 18:00 Temperature 37.2 C Pulse Rate 133 H 116 H Respiratory Rate 20 Blood Pressure 117/87 Pulse Oximetry 97 Oxygen Delivery Room Air 08/04/24 18:42 08/04/24 18:44 08/04/24 20:00 Temperature 36.8 C Pulse Rate 131 H 131 H 112 H Respiratory Rate 20 Blood Pressure 117/87 101/70 Pulse Oximetry 96 Oxygen Delivery 08/04/24 20:00 08/04/24 20:00 08/04/24 20:20 Temperature Pulse Rate 121 H 118 H Respiratory Rate Blood Pressure 101/70 Pulse Oximetry Oxygen Delivery Room Air 08/04/24 20:58 08/04/24 22:00 08/04/24 22:00 Temperature Pulse Rate 121 H 116 H 116 H Respiratory Rate Blood Pressure Pulse Oximetry Oxygen Delivery 08/05/24 00:00 08/05/24 00:00 08/05/24 00:00 Temperature 36.9 C Pulse Rate 127 H 122 H Respiratory Rate 20 Blood Pressure 90/72 L 90/72 L Pulse Oximetry 97 Oxygen Delivery Room Air 08/05/24 00:00 08/05/24 02:00 08/05/24 02:00 Temperature Pulse Rate 130 H 123 H 123 H Respiratory Rate Blood Pressure 90/61 L Pulse Oximetry Oxygen Delivery 08/05/24 02:00 08/05/24 04:00 08/05/24 04:00 Temperature 36.9 C Pulse Rate 118 H 113 H 113 H Respiratory Rate 18 18 Blood Pressure 119/67 126/79 Pulse Oximetry 96 96 Oxygen Delivery Room Air 08/05/24 04:00 08/05/24 05:25 08/05/24 06:00 Temperature Pulse Rate 108 H 113 H 104 H Respiratory Rate Blood Pressure 126/79 117/86 Pulse Oximetry Oxygen Delivery 08/05/24 06:00 08/05/24 06:00 08/05/24 06:53 Temperature Pulse Rate 104 H 104 H 112 H Respiratory Rate Blood Pressure 117/86 117/86 Pulse Oximetry Oxygen Delivery 08/05/24 06:53 08/05/24 08:00 08/05/24 09:51 Temperature 36.8 C Pulse Rate 112 H 116 H 125 H Respiratory Rate 12 Blood Pressure 117/86 139/78 Pulse Oximetry 97 Oxygen Delivery 08/05/24 12:00 Temperature 36.8 C Pulse Rate 103 H Respiratory Rate 20 Blood Pressure 108/76 Pulse Oximetry 97 Oxygen Delivery Intake/Output Intake/Output: Intake & Output 08/02/24 08/03/24 08/04/24 08/05/24 23:59 23:59 23:59 23:59 Intake Total 16.5 1228.5 Output Total 200 Balance 16.5 1028.5 Meds/Results Medications: Active Medications Generic Name Dose Route Start Last Admin Trade Name Freq PRN Reason Stop Dose Admin Acetaminophen 650 mg 08/04/24 17:56 Acetaminophen 325 Mg Tablet PO Q6H PRN Mild Pain (1-3) or Fever Allopurinol 100 mg 08/05/24 09:00 08/05/24 09:50 Allopurinol 100 Mg Tablet PO 100 mg DAILY MARITO Administration Atorvastatin Calcium 20 mg 08/05/24 09:00 08/05/24 09:49 Atorvastatin 20 Mg Tablet PO 20 mg DAILY MARTIO Administration Doxycycline Hyclate 100 mg 08/04/24 18:00 08/05/24 05:20 Doxycycline Hyclate 100 Mg Tablet PO 100 mg Q12H MARITO Administration Enoxaparin Sodium 40 mg 08/05/24 09:00 08/05/24 09:50 Enoxaparin 40 Mg/0.4 Ml Syringe SUB-Q 40 mg DAILY MARITO Administration Hydrochlorothiazide 12.5 mg 08/05/24 09:00 Hydrochlorothiazide 12.5 Mg Capsule PO DAILY [facility] Diltiazem HCl 100 mg in 100 mls @ 7.5 mls/hr 08/04/24 17:50 08/05/24 06:53 Cardizem 100 Mg/100 Ml IV CONT 5 mg/hr .[id number] MARITO 5 mls/hr Administration 7.5 MG/HR Latanoprost 1 drop 08/04/24 18:00 08/04/24 18:44 Latanoprost 0.005% Op Soln 2.5 Ml Btl RIGHT EYE 1 drop QPM MARITO Administration Losartan Potassium 50 mg 08/05/24 09:00 08/05/24 09:50 Losartan Potassium 50 Mg Tablet PO 50 mg DAILY MARITO Administration Magnesium Oxide 400 mg 08/05/24 09:00 08/05/24 09:50 Magnesium Oxide 400 Mg Tablet PO 400 mg DAILY [facility] Administration Metoprolol Tartrate 75 mg 08/05/24 15:10 Metoprolol Tartrate 25 Mg Tablet PO Q8HR [facility] Oxybutynin Chloride 10 mg 08/04/24 18:00 08/04/24 18:43 Oxybutynin Chloride 5 Mg Tablet PO 10 mg QPM MARITO Administration Oxybutynin Chloride 5 mg 08/05/24 09:00 08/05/24 09:51 Oxybutynin Chloride 5 Mg Tablet PO 5 mg QAM [facility] Administration Sertraline HCl 50 mg 08/05/24 09:00 08/05/24 09:50 Sertraline Hcl 50 Mg Tablet PO 50 mg DAILY [facility] Administration Tramadol HCl 50 mg 08/04/24 17:57 Tramadol Hcl (*Crx) 50 Mg Tablet PO Q12H PRN pain 4-10 Radiology Results: ITS Impressions Chest CTA 08/05/24 11:32 IMPRESSION: 1. No pulmonary embolism. 2. Groundglass opacities in both lungs and favor atelectasis related to expiratory phase of imaging over mild pulmonary edema or pneumonia. 3. Partially visualized supraumbilical ventral hernia containing fat and a portion of the transverse colon. 4. Cardiomegaly. Labs Labs: Laboratory Results - last 24 hr 08/04/24 08/04/24 08/05/24 18:02 20:41 05:29 WBC 9.6 RBC 3.18 L Hgb 9.9 L Hct 31.1 L MCV 97.8 MCH 31.1 MCHC 31.8 L RDW 14.1 Plt Count 250 MPV 9.8 D-Dimer 3.34 H Sodium 132 L 133 L Potassium 3.2 L 3.7 Chloride 98 102 Carbon Dioxide 28 24 Anion Gap 6 7 BUN 24 H 24 H Creatinine 1.02 H 1.00 Estim Creat Clear Calc 48 49 Estimated GFR 53 L 54 L Glucose 110 96 Calcium 8.3 L 8.2 L Magnesium 1.7 Troponin I 0.014 D TSH (Reflex) 1.690 Quality VTE Prophylaxis VTE prophylaxis: pharmacologic ordered
--- NOTE | 2024-08-05 16:22 | P.CONCA_ITS ---
Assessment and Plan Assessment and plan (1) Atrial fibrillation with rapid ventricular response: Code(s): I48.91 - Unspecified atrial fibrillation Status: Acute (2) Hyperlipidemia: Code(s): E78.5 - Hyperlipidemia, unspecified Status: Acute (3) Aortic stenosis: Code(s): I35.0 - Nonrheumatic aortic (valve) stenosis Status: Acute (4) Mitral regurgitation: Code(s): I34.0 - Nonrheumatic mitral (valve) insufficiency Status: Acute Plan 79-year-old woman with chronic kidney disease stage IIIA, hypertension, hyperlipidemia, and depression presented to start on hospital for weakness found to have lower extremity cellulitis as well as atrial fibrillation with rapid ventricular rates Paroxysmal atrial fibrillation with rapid ventricular rates -increase metoprolol tartrate to 75 mg p.o. t.i.d. -continue diltiazem drip and wean as appropriate to maintain heart rate less than 120 beats per minute -we had a discussion on risks and benefits of anticoagulation and I do recommend starting anticoagulation to which the patient and family agreed -will start Eliquis 5 mg p.o. b.i.d. -we have discussed indications for ablation therapy as well as cardioversion which would need to be guided by RAUL to rule out thrombus however at this time the goal will be to rate control which her and her family understood and agreed to after all questions answered Moderate aortic stenosis -due to poorly visualized valves on recent transthoracic echocardiogram, we would recommend this be re-evaluated in clinic -to ensure good candidacy, she would need to be able to regain the ability to ambulate or at the very minimal rise out of bed Moderate mitral regurgitation -similarly, this needs to be re-evaluated in clinic -RAUL would be recommended should images continue to be poor Hyperlipidemia -continue atorvastatin 20 mg every evening History of Present Illness History of Present Illness Consult date/time: 08/05/24 16:22 Reason For Visit: New Onset Atrial Fibrillation With RVR Narrative: 79-year-old woman with chronic kidney disease stage IIIA, hypertension, hyperlipidemia, and depression presented to start on hospital for weakness found to have lower extremity cellulitis as well as atrial fibrillation with rapid ventricular rates. Her son and [id number] were at bedside providing some the subjective history. It appears that she has been having profound weakness and inability to stand and walk on her own for quite some time now. Otherwise the patient at her baseline denies any orthopnea or shortness of breath. Denies any chest pain. She did have palpitations a few years ago and was treated with metoprolol and Zoloft. Since then her palpitations had resolved. She currently denies any palpitations. No lower extremity swelling or syncopal events Review of Systems 2 Cardiovascular: Cardiovascular: Reports as per HPI Respiratory: Respiratory: Reports as per HPI [facility] Past Medical History Medical History (Updated 08/05/24 @ 16:40 by Niraj Peacock MD) Chronic kidney disease, stage 3 Overactive bladder Depression Hyperlipidemia Hypertension Glaucoma Surgical History Surgical History (Updated 08/04/24 @ 20:15 by Tanya Boothe PA-C) History of hysterectomy History of bilateral hip replacements History of bilateral knee replacement History of cholecystectomy Social History Social History 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 Code status: Full code. Smoking status: Never smoker Alcohol intake: never Substance use: never Substance use type: does not use Do You Feel Safe in your Home?: Yes Lack of Transportation: No Lack of Food: Never True Current Housing: I Have Housing Concerned About Future Housing: No Difficulty Paying Gas/Electric Bills: No Difficulty Paying for Meds: No Currently Unemployed: No Education: Don't Know Difficulty w/ Childcare or Family Care: No Spiritual care concerns: No Meds Home Medications and Allergies Home Medications ?Medication ?Instructions ?Recorded ?Confirmed ?Type doxycycline hyclate 100 mg tablet 100 mg PO Q12H #20 tabs 08/01/24 08/04/24 Rx allopurinol 100 mg tablet 100 mg PO DAILY 08/04/24 08/04/24 History atorvastatin 20 mg tablet 20 mg PO DAILY 08/04/24 08/04/24 History latanoprost 0.005 % eye drops 1 drp RIGHT EYE QPM 08/04/24 08/04/24 History losartan 50 mg-hydrochlorothiazide 1 tablet PO DAILY 08/04/24 08/04/24 History 12.5 mg tablet metoprolol tartrate 25 mg tablet 25 mg PO TID 08/04/24 08/04/24 History oxybutynin chloride 5 mg tablet See Rx Instructions PO .COMPLEX 08/04/24 08/04/24 History sertraline 50 mg tablet 50 mg PO DAILY 08/04/24 08/04/24 History tramadol 50 mg tablet 50 mg PO Q12H PRN pain 08/04/24 08/04/24 History Allergies Allergy/AdvReac Type Severity Reaction Status Date / Time No Known Allergies Allergy Verified 08/04/24 12:31 Vital Signs Vital Signs - 24 hr 08/04/24 16:55 08/04/24 17:05 08/04/24 18:00 Temperature 37.2 C Pulse Rate 133 H 116 H Respiratory Rate 20 Blood Pressure 117/87 Pulse Oximetry 97 Oxygen Delivery Room Air 08/04/24 18:42 08/04/24 18:44 08/04/24 20:00 Temperature 36.8 C Pulse Rate 131 H 131 H 112 H Respiratory Rate 20 Blood Pressure 117/87 101/70 Pulse Oximetry 96 Oxygen Delivery 08/04/24 20:00 08/04/24 20:00 08/04/24 20:20 Temperature Pulse Rate 121 H 118 H Respiratory Rate Blood Pressure 101/70 Pulse Oximetry Oxygen Delivery Room Air 08/04/24 20:58 08/04/24 22:00 08/04/24 22:00 Temperature Pulse Rate 121 H 116 H 116 H Respiratory Rate Blood Pressure Pulse Oximetry Oxygen Delivery 08/05/24 00:00 08/05/24 00:00 08/05/24 00:00 Temperature 36.9 C Pulse Rate 127 H 122 H Respiratory Rate 20 Blood Pressure 90/72 L 90/72 L Pulse Oximetry 97 Oxygen Delivery Room Air 08/05/24 00:00 08/05/24 02:00 08/05/24 02:00 Temperature Pulse Rate 130 H 123 H 123 H Respiratory Rate Blood Pressure 90/61 L Pulse Oximetry Oxygen Delivery 08/05/24 02:00 08/05/24 04:00 08/05/24 04:00 Temperature 36.9 C Pulse Rate 118 H 113 H 113 H Respiratory Rate 18 18 Blood Pressure 119/67 126/79 Pulse Oximetry 96 96 Oxygen Delivery Room Air 08/05/24 04:00 08/05/24 05:25 08/05/24 06:00 Temperature Pulse Rate 108 H 113 H 104 H Respiratory Rate Blood Pressure 126/79 117/86 Pulse Oximetry Oxygen Delivery 08/05/24 06:00 08/05/24 06:00 08/05/24 06:53 Temperature Pulse Rate 104 H 104 H 112 H Respiratory Rate Blood Pressure 117/86 117/86 Pulse Oximetry Oxygen Delivery 08/05/24 06:53 08/05/24 08:00 08/05/24 08:00 Temperature 36.8 C Pulse Rate 112 H 116 H 116 H Respiratory Rate 12 Blood Pressure 117/86 139/78 Pulse Oximetry 97 Oxygen Delivery 08/05/24 09:51 08/05/24 10:00 08/05/24 10:00 Temperature Pulse Rate 125 H 113 H 120 H Respiratory Rate Blood Pressure Pulse Oximetry Oxygen Delivery 08/05/24 12:00 08/05/24 12:00 08/05/24 14:00 Temperature 36.8 C Pulse Rate 103 H 110 H 118 H Respiratory Rate 20 Blood Pressure 108/76 Pulse Oximetry 97 Oxygen Delivery 08/05/24 14:00 08/05/24 16:00 Temperature Pulse Rate 111 H 109 H Respiratory Rate Blood Pressure Pulse Oximetry Oxygen Delivery Exam 2 Const: General: comfortable HENMT: Mouth: Yes moist mucous membranes Eyes: EOM: EOMs intact bilaterally Neck: Neck: no JVD Resp: Effort & Inspection: normal respiratory effort Auscultation: clear to auscultation bilaterally Cardio: Rate: tachycardic Rhythm: abnormal rhythm Heart sounds: Murmur heart sound present Neuro: Speech: normal speech Extrem: General: no pedal edema Results Labs and Meds 08/05/24 05:29 08/05/24 05:29 Lab results: Cardiac Enzymes 08/04/24 Range/Units 18:02 Troponin I 0.014 D (0.000-0.034) ng/mL CBC 08/05/24 Range/Units 05:29 WBC 9.6 (4.5-10.0) K/mm3 RBC 3.18 L (4.2-5.4) M/mm3 Hgb 9.9 L (12.0-15.0) g/dL Hct 31.1 L (37.0-47.0) % Plt Count 250 (150-375) k/mm3 Comprehensive Metabolic Panel 08/04/24 08/05/24 Range/Units 18:02 05:29 Sodium 132 L 133 L (137-145) mmol/L Potassium 3.2 L 3.7 (3.4-5.0) mmol/L Chloride 98 102 (98-107) mmol/L Carbon Dioxide 28 24 (22-30) mmol/L BUN 24 H 24 H (7-17) mg/dL Creatinine 1.02 H 1.00 (0.7-1.0) mg/dL Glucose 110 96 (65-110) mg/dL Calcium 8.3 L 8.2 L (8.4-10.2) mg/dL Intake and Output 08/05/24 08/05/24 08/05/24 07:59 15:59 23:59 Intake Total 1228.5 Output Total 200 Balance 1028.5 Intake: IV 1078.5 Sodium Chloride 0.9% IV 1,000 1000 ml @ 250 mls/hr IV CONT .Q4H ONE Rx#:[id number] dilTIAZem 100 MG/100 ML 100 mg 78.5 In 100 ml @ 5 MG/HR 5 mls/hr IV CONT .Q20H [facility] Rx#:[id number] Oral 150 Output: Catheter Urine 200 External/Condom 200 Patient Weight 08/05/24 23:59 Weight 108.6 kg
--- NOTE | 2024-08-05 17:55 | ECHO_ITS ---
Patient Info Name: Tiana Wilson Age: 79 years : 1945 Gender: Female Ht: 63 in Wt: 236 lbs BSA: 2.24 m2 HR: 120 bpm BP: 117 / 86 mmHg Heart Rhythm: Atrial Fibrillation Technical Quality: Fair Exam Date: 08/05/2024 8:26 AM Patient Status: I Admit Date: 08/04/2024 Exam Type: CA echo dop color flow w con Complete two-dimensional, color flow and Doppler transthoracic echocardiogram is performed with contrast to opacify the left ventricle and to improve the deliniation of the left ventricle endocardial borders. Staff Referring Physician: Tanya ROMAN Vest Baster: Jacqui Millard Attending Provider: Herminio Veliz Summary 1. There is normal biventricular size and systolic function. 2. The left ventricle has grade 2 diastolic dysfunction. 3. The valves were poorly visualized however there does appear to be moderate mitral regurgitation and moderate aortic stenosis. 4. These valve should be reassessed within the next 3-6 months. Left Ventricle The left ventricle is normal in size and systolic function. There is concentric left ventricular remodeling. The left ventricular ejection fraction is visually estimated to be 65-70%. There are no regional wall motion abnormalities. There is grade 2 diastolic dysfunction. Right Ventricle The right ventricle is normal in size and systolic function. Left Atria The left atrium is moderately dilated. Right Atria The right atrium is dilated. Atrial Septum The atrial septum visually appears intact. Aortic Valve The aortic valve is not well visualized but does appear to be heavily calcified. There is moderate aortic stenosis. Pulmonic Valve The pulmonic valve is not well visualized. Mitral Valve The mitral valve is heavily calcified. There is no mitral stenosis. There appears to be moderate mitral regurgitation. Tricuspid Valve The tricuspid valve is grossly normal. There is mild tricuspid regurgitation. Pericardium/Pleural Prominent epicardial fat pad. Inferior Vena Cava Inferior vena cava is not well visualized. Aorta The aortic root at the level of the sinus of Valsalva is estimated to be 3.2 cm in diameter. Left Ventricular Outflow Tract Name Value Normal LVOT 2D LVOT Diameter 2.0 cm LVOT Doppler LVOT Peak Velocity 99 cm/s LVOT Peak Gradient 4 mmHg LVOT Mean Gradient 2 mmHg LVOT VTI 15 cm LVOT VTI/AV VTI Ratio 0.4 LVOT Stroke Volume 46 ml LVOT CO 4.7 l/min LVOT CI 2.1 l/min/m2 Pulmonic Valve Name Value Normal PV Doppler PV Peak Velocity 117 cm/s PV Peak Gradient 6 mmHg Mitral Valve Name Value Normal MV Diastolic Function MV E Peak Velocity 167 cm/s MV A Peak Velocity 3 cm/s MV E/A 54.9 MV Decel Time (PW) 163 ms MV Annular TDI MV E/e' (Septal) 21.1 MV E/e' (Lateral) 19.7 MV E/e' (Average) 20.4 Tricuspid Valve Name Value Normal TV Regurgitation Doppler TR Peak Velocity 305 cm/s TR Peak Gradient 37 mmHg TV Annular TDI TV Lateral Aye s' Velocity 12.6 cm/s >=9.5 Aortic Valve Name Value Normal AV Doppler AV Peak Velocity 241 cm/s AV Peak Gradient 17 mmHg AV Mean Gradient 10 mmHg AV VTI 43 cm AV Area (Cont Eq VTI) 1.1 cm2 >=3.0 AV Area (Cont Eq Willie) 1.3 cm2 AV DI (Willie) 0.41 AV Regurgitation 2D LVOT Area 3.1 cm2 Ventricles Name Value Normal LV Dimensions 2D/MM IVS Diastolic Thickness (2D) 1.1 cm 0.6-1.0 LVID Diastole (2D) 5.0 cm 3.8-5.2 LVIW Diastolic Thickness (2D) 1.0 cm 0.6-0.9 LVID Systole (2D) 3.1 cm 2.2-3.5 LVOT Diameter 2.0 cm LV Mass (2D Cubed) 191.04 g 67.00-162.00 LV Mass Index (2D Cubed) 85 g/m2 43-95 Relative Wall Thickness (2D) 0.41 <=0.42 LV Fractional Shortening/Ejection Fraction 2D/MM LV Fractional Shortening (2D) 36 % 27-45 LV EF (2D Teichholz) 66 % LV Diastolic Volume (4C MOD) 106 ml LV EF (4C MOD) 72 % LV Diastolic Volume (2C MOD) 121 ml LV EF (2C MOD) 59 % LV Diastolic Volume (BP MOD) 116 ml 46-106 LV Diastolic Volume Index (BP MOD) 52 ml/m2 29-61 LV Systolic Volume (BP MOD) 38 ml 14-42 LV Systolic Volume Index (BP MOD) 17 ml/m2 8-24 LV EF (BP MOD) 67 % 54-74 LV Diastolic Length (4C) 7.1 cm LV Systolic Length (4C) 5.9 cm LV Stroke Volume (4C MOD) 77 ml Atria Name Value Normal LA Dimensions LA Volume (4C A-L) 68 ml LA Volume (BP A-L) 84 ml RA Dimensions RA Systolic Major [place] Length (4C) 5.7 cm 2.2-2.8 RA Area (4C) 16.6 cm2 <=18.0 Report Signatures
[2024-08-05] MEDS: METOPROLOL TARTRATE 25 MG TABLET 75 MG PO (17:59)
[2024-08-05] MEDS: LATANOPROST 0.005% OP SOLN 2.5 ML BTL 1 DROP RIGHT EYE (18:00)
[2024-08-05] MEDS: oxyBUTYnin CHLORIDE 5 MG TABLET 10 MG PO (18:00)
[2024-08-05 18:20] LABS: Add Urine Microscopic? YES; Appearance Urine Clear (Clear); Bacteria Urine None Seen /hpf; Bilirubin Urine Negative (Negative); Blood Urine Negative (Negative); Color Urine Yellow (Yellow); Glucose Urine UA Negative (Negative); Ketones Urine Negative (Negative); Leukocyte Esterase Ur Trace LEU/UL (Negative); Nitrate Urine Negative (Negative); Non Pathogenic Casts 0-2; Protein Urine Trace mg/dL (Negative); RBC Urine 0-2 /hpf (0-2); Specific Grav Ur 1.042 (1.001-1.035); Squamous Epithelial Cell Urine Few /hpf (Few); WBC Urine 0-5 /hpf (0-3); pH Urine 5.5 (5.0-9.0)
[2024-08-05] MEDS: APIXABAN 5 MG TABLET PO (20:28)
[2024-08-05] MEDS: METOPROLOL TARTRATE 50 MG TAB 100 MG PO (21:59)
[2024-08-06] VITALS (23 sets, daily range): BP systolic 97–130; BP diastolic 55–88; PULSE 70–104; RESP 12–20; TEMP 36.7–37.2; O2SAT 96–100
[2024-08-06] MEDS: dilTIAZem 100 MG/100 ML 100 MG/100 ML BAG 7.5 MG IV CONT (00:14)
[2024-08-06] MEDS: METOPROLOL TARTRATE 50 MG TAB 100 MG PO (05:55)
[2024-08-06] MEDS: DOXYCYCLINE HYCLATE 100 MG TABLET PO ×2 (05:55→18:30)
[2024-08-06] MEDS: ATORVASTATIN 20 MG TABLET PO (10:01)
[2024-08-06] MEDS: allopurinoL 100 MG TABLET PO (10:02)
[2024-08-06] MEDS: APIXABAN 5 MG TABLET PO ×2 (10:02→20:28)
[2024-08-06] MEDS: MAGNESIUM OXIDE 400 MG TABLET PO (10:02)
[2024-08-06] MEDS: SERTRALINE HCL 50 MG TABLET PO (10:02)
[2024-08-06] MEDS: oxyBUTYnin CHLORIDE 5 MG TABLET PO (10:02)
[2024-08-06] MEDS: LOSARTAN POTASSIUM 25 MG TABLET PO (10:02)
[2024-08-06] MEDS: POTASSIUM CHLORIDE 20 MEQ PACKET (FOR LIQUID) 40 MEQ PO (10:15)
--- NOTE | 2024-08-06 10:20 | ECG_ITS ---
Test Date: 2024-08-06 11:04:44 Measurements Intervals [place] Rate: 76 P: 0 SD: 0 QRS: -15 QRSD: 76 T: -25 QT: 391 QTc: 440 Interpretive Statements ATRIAL FIBRILLATION WITH ABERRANT CONDUCTION OR VENTRICULAR PREMATURE COMPLEXES LOW QRS VOLTAGE IN PRECORDIAL LEADS [QRS DEFLECTION < 1.0 mV IN CHEST LEADS] Nonspecific ST and T-wave abnormalities Compared to ECG 08/04/2024 12:27:24 rate is now controlled Electronically Signed On 08-06-2024 11:47:00 CDT by Niraj Peacock M.D.
--- NOTE | 2024-08-06 11:23 | PM.PNCARD ---
Progress Note: A&P Assessment and Plan (1) Aortic stenosis: Code(s): I35.0 - Nonrheumatic aortic (valve) stenosis Status: Acute (2) Mitral regurgitation: Code(s): I34.0 - Nonrheumatic mitral (valve) insufficiency Status: Acute (3) Atrial fibrillation with rapid ventricular response: Code(s): I48.91 - Unspecified atrial fibrillation Status: Acute (4) Hyperlipidemia: Code(s): E78.5 - Hyperlipidemia, unspecified Status: Acute (5) Hypertension: Code(s): I10 - Essential (primary) hypertension Status: Acute Plan 79-year-old woman with chronic kidney disease stage IIIA, hypertension, hyperlipidemia, and depression presented to start on hospital for weakness found to have lower extremity cellulitis as well as atrial fibrillation with rapid ventricular rates Paroxysmal atrial fibrillation with rapid ventricular rates -will consolidate her metoprolol succinate to 200mg PO daily; can add diltiazem 120mg PO daily if additional rate control agent needed -losartan and HCTZ on hold for now to allow room for rate control agents -continue Eliquis 5 mg p.o. b.i.d. -can discontinue diltiazem drip -can discontinue IVF as she is at risk for acute diastolic heart failure -we have discussed indications for ablation therapy as well as cardioversion which would need to be guided by RAUL to rule out thrombus however at this time the goal will be to rate control which her and her family understood and agreed to after all questions answered Moderate aortic stenosis -due to poorly visualized valves on recent transthoracic echocardiogram, we would recommend this be re-evaluated in clinic -to ensure good candidacy, she would need to be able to regain the ability to ambulate or at the very minimal rise out of bed Moderate mitral regurgitation -similarly, this needs to be re-evaluated in clinic -RAUL would be recommended should images continue to be poor Hyperlipidemia -continue atorvastatin 20 mg every evening HTN -losartan 50mg PO daily and HCTZ 12.5mg PO daily discontinued to allow room for rate control agents No further inpatient cardiac workup anticipated. Please call cardiology with additional questions. Subjective Date/time seen: 08/06/24 11:23 Interval history: Denies chest pain and shortness of breath. Feeling a bit drowsy this morning. Review of Systems Cardiovascular: Cardiovascular: Reports as per HPI Respiratory: Respiratory: Reports as per HPI Exam Const: General: comfortable HENMT: Mouth: Yes moist mucous membranes Eyes: EOM: EOMs intact bilaterally Neck: Neck: no JVD Resp: Effort & Inspection: normal respiratory effort Auscultation: clear to auscultation bilaterally Cardio: Rate: regular rate Rhythm: abnormal rhythm Heart sounds: Murmur heart sound present Extrem: General: no pedal edema Objective Data Vital Signs Vital Signs: Vital Signs - 24 hr 08/05/24 12:00 08/05/24 12:00 08/05/24 14:00 Temperature 36.8 C Pulse Rate 103 H 110 H 118 H Respiratory Rate 20 Blood Pressure 108/76 Pulse Oximetry 97 Oxygen Delivery 08/05/24 14:00 08/05/24 16:00 08/05/24 16:00 Temperature 37.3 C Pulse Rate 111 H 109 H 108 H Respiratory Rate 16 Blood Pressure 120/51 L Pulse Oximetry 95 Oxygen Delivery 08/05/24 17:59 08/05/24 18:00 08/05/24 18:00 Temperature 37.3 C Pulse Rate 117 H 128 H 91 Respiratory Rate 12 Blood Pressure 118/60 Pulse Oximetry 96 Oxygen Delivery 08/05/24 19:24 08/05/24 19:40 08/05/24 20:00 Temperature 37.2 C Pulse Rate 120 H 120 H 124 H Respiratory Rate 20 Blood Pressure 105/38 L 105/38 L Pulse Oximetry 96 Oxygen Delivery 08/05/24 20:18 08/05/24 21:59 08/05/24 22:00 Temperature Pulse Rate 124 H 106 H 107 H Respiratory Rate 20 20 Blood Pressure 119/34 L Pulse Oximetry 96 98 Oxygen Delivery Room Air 08/05/24 22:00 08/05/24 22:00 08/06/24 00:00 Temperature Pulse Rate 107 H 107 H 93 Respiratory Rate Blood Pressure 119/74 Pulse Oximetry Oxygen Delivery 08/06/24 00:10 08/06/24 00:10 08/06/24 00:14 Temperature 37.2 C Pulse Rate 91 91 91 Respiratory Rate 20 20 Blood Pressure 123/80 123/80 Pulse Oximetry 96 96 Oxygen Delivery Room Air 08/06/24 00:14 08/06/24 01:46 08/06/24 01:48 Temperature Pulse Rate 91 74 74 Respiratory Rate Blood Pressure 123/80 97/63 L Pulse Oximetry Oxygen Delivery 08/06/24 01:48 08/06/24 03:45 08/06/24 03:45 Temperature 36.9 C Pulse Rate 74 80 80 Respiratory Rate 20 Blood Pressure 97/63 L 107/66 107/66 Pulse Oximetry 99 Oxygen Delivery 08/06/24 03:45 08/06/24 04:00 08/06/24 05:53 Temperature Pulse Rate 80 91 79 Respiratory Rate 20 Blood Pressure 121/80 Pulse Oximetry 99 Oxygen Delivery Room Air 08/06/24 05:54 08/06/24 05:55 08/06/24 05:56 Temperature Pulse Rate 79 79 79 Respiratory Rate Blood Pressure 121/80 Pulse Oximetry Oxygen Delivery 08/06/24 08:00 Temperature 36.8 C Pulse Rate 83 Respiratory Rate 16 Blood Pressure 125/75 Pulse Oximetry 98 Oxygen Delivery Intake/Output Intake/Output: Intake & Output 08/03/24 08/04/24 08/05/24 08/06/24 23:59 23:59 23:59 23:59 Intake Total 16.5 1749.9 209.2 Output Total 700 220 Balance 16.5 1049.9 -10.8 Meds/Results Medications: Active Medications Generic Name Dose Route Start Last Admin Trade Name Freq PRN Reason Stop Dose Admin Acetaminophen 650 mg 08/04/24 17:56 Acetaminophen 325 Mg Tablet PO Q6H PRN Mild Pain (1-3) or Fever Allopurinol 100 mg 08/05/24 09:00 08/06/24 10:02 Allopurinol 100 Mg Tablet PO 100 mg DAILY MARITO Administration Apixaban 5 mg 08/05/24 21:00 08/06/24 10:02 Apixaban 5 Mg Tablet PO 5 mg Q12HR MARITO Administration Atorvastatin Calcium 20 mg 08/05/24 09:00 08/06/24 10:01 Atorvastatin 20 Mg Tablet PO 20 mg DAILY MARITO Administration Doxycycline Hyclate 100 mg 08/04/24 18:00 08/06/24 05:55 Doxycycline Hyclate 100 Mg Tablet PO 100 mg Q12H MARITO Administration Hydrochlorothiazide 12.5 mg 08/05/24 09:00 Hydrochlorothiazide 12.5 Mg Capsule PO DAILY MARITO Sodium Chloride 1,000 mls @ 75 mls/hr 08/06/24 10:30 Normal Saline Iv IV CONT .[id number] MARITO Latanoprost 1 drop 08/04/24 18:00 08/05/24 18:00 Latanoprost 0.005% Op Soln 2.5 Ml Btl RIGHT EYE 1 drop QPM MARITO Administration Losartan Potassium 25 mg 08/06/24 09:00 08/06/24 10:02 Losartan Potassium 25 Mg Tablet PO 25 mg DAILY MARITO Administration Magnesium Oxide 400 mg 08/05/24 09:00 08/06/24 10:02 Magnesium Oxide 400 Mg Tablet PO 400 mg DAILY MARITO Administration Metoprolol Tartrate 100 mg 08/05/24 22:00 08/06/24 05:55 Metoprolol Tartrate 50 Mg Tab PO 100 mg Q8HR MARITO Administration Oxybutynin Chloride 10 mg 08/04/24 18:00 08/05/24 18:00 Oxybutynin Chloride 5 Mg Tablet PO 10 mg QPM MARITO Administration Oxybutynin Chloride 5 mg 08/05/24 09:00 08/06/24 10:02 Oxybutynin Chloride 5 Mg Tablet PO 5 mg QAM MARITO Administration Sertraline HCl 50 mg 08/05/24 09:00 08/06/24 10:02 Sertraline Hcl 50 Mg Tablet PO 50 mg DAILY MARITO Administration Tramadol HCl 50 mg 08/04/24 17:57 Tramadol Hcl (*Crx) 50 Mg Tablet PO Q12H PRN pain 4-10 Radiology Results: ITS Impressions Chest CTA 08/05/24 11:32 IMPRESSION: 1. No pulmonary embolism. 2. Groundglass opacities in both lungs and favor atelectasis related to expiratory phase of imaging over mild pulmonary edema or pneumonia. 3. Partially visualized supraumbilical ventral hernia containing fat and a portion of the transverse colon. 4. Cardiomegaly. Labs Labs: Laboratory Results - last 24 hr 08/05/24 17:56 Urine Color Yellow Urine Appearance Clear Urine pH 5.5 Ur Specific [place] 1.042 H Urine Protein Trace Urine Glucose (UA) Negative Urine Ketones Negative Ur Blood (Man) Negative Urine Nitrate Negative Urine Bilirubin Negative Urine Urobilinogen 1.0 Leukocyte Esterase Rfl Trace H Urine RBC 0-2 Urine WBC 0-5 Ur Squamous Epith Cells Few Urine Bacteria None seen Urine Casts 0-2
[2024-08-06] MEDS: SODIUM CHLORIDE 0.9% IV 1,000 ML 75 ML IV CONT (13:14)
[2024-08-06] MEDS: METOPROLOL SUCCINATE EXT REL 100 MG TABCR 200 MG PO (13:15)
--- NOTE | 2024-08-06 15:46 | P.PNIM_ITS ---
Progress Note: A&P Assessment and Plan (1) Atrial fibrillation with rapid ventricular response: Code(s): I48.91 - Unspecified atrial fibrillation Status: Acute (2) Hypokalemia: Code(s): E87.6 - Hypokalemia Status: Acute (3) Chronic kidney disease, stage 3: Code(s): N18.30 - Chronic kidney disease, stage 3 unspecified Status: Acute (4) Hypertension: Code(s): I10 - Essential (primary) hypertension Status: Acute (5) Hyperlipidemia: Code(s): E78.5 - Hyperlipidemia, unspecified Status: Acute (6) Glaucoma: Code(s): H40.9 - Unspecified glaucoma Status: Acute Plan The patient presented to the emergency department at the outside facility for evaluation of weakness and was found to be in atrial fibrillation with rapid ventricular response as detailed in HPI. Labs, imaging, EKG, and all reports were personally reviewed. She has no known history of atrial fibrillation but is a metoprolol tartrate 3 times a day which is quite unusual. Continue with metoprolol for now and initiate Cardizem drip as her rate still remains quite high. She received a dose of enoxaparin 1 mg/kg at the outside facility. Long discussion with the patient and her family members regarding risk versus benefit of anticoagulation and at this time we will hold on initiating a DOAC pending cardiology and therapy input. Echocardiogram an apnea link ordered. TSH is within normal limits. ProBNP is quite elevated though she really appears euvolemic. Pulmonary embolism is considered as a D-dimer done earlier this week was elevated however left lower extremity Doppler was negative for DVT. Recheck D-dimer and obtain chest CTA if significantly elevated. Kidney function is stable on review of previous labs. Blood pressures are reasonable and will be monitored. Replace potassium and monitor. The rest of her home medications will be reviewed and resumed as appropriate. Findings and treatment plan were discussed with the patient. Questions were solicited and answered to satisfaction. The patient's medical management will be taken over by the hospitalist team in a.m. 79 y/o had been complaints of weakness and lower extremities cellulitis, patient cellulitis was recently treated with doxycycline and which has improved however her weakness and difficulty with ADL brought to outside ER and was found to have new onset Atrial fibrillation with RVR. patient was transferred to the hospital for further evaluation patient was started on Diltiazem drip 5mg, her HR did trended down but remain in upper 130 and increased diltiazem drip to 7.5mg, patient will be seen by public transit trolley driver and further recommendation to follow. moody schneider cardiac ECHO is pending. Subjective Date/time seen: 08/06/24 15:46 Interval history: New onset atrial fibrillation with rapid ventricular response. H&P-Narrative: This is a 79-year-old female with history of hypertension, hyperlipidemia, chron ic kidney disease, glaucoma, overactive bladder, and depression who is being directly admitted to the IMU from the emergency department at [facility] for further treatment and evaluation after she was found to be in atrial fibrillation with rapid ventricular response, presumably new onset. The patient provides the following history and her son and [id number] provide additional information with the patient's permission. She lives alone and ambulates with a wheeled walker. Over some months she has become increasingly weak and deconditioned and she has had a couple of falls requiring lift assist. She has help at home 3 days a week and she recently started physical therapy but family believes that she needs more care. Earlier this week she developed erythema and edema of the left lower leg and was seen in [place] at which time she was prescribed doxycycline for cellulitis with marked improvement. Lower extremity venous Doppler ultrasound was negative for DVT at that time. Today she was brought in for evaluation due to ongoing weakness which seems to be getting worse. It is now to the point where she is afraid to stand as she is worried about falling. She denies syncope, near syncope, vertigo, chest pain, palpitations, orthopnea, shortness of breath, nausea, vomiting, and diarrhea. She has intermittent dysuria and reports ongoing issues with incontinence which may be related to the fact that she is having difficulties getting up to the bathroom. In the ED: She was found to be in atrial fibrillation with rapid ventricular response, presumably a new diagnosis however the patient is prescribed metoprolol tartrate 3 times a day which is somewhat of an unusual dose. Labs were significant for hemoglobin of 10.9, sodium 134, potassium 3.3, BUN 24, creatinine 1.10, lactic acid 2.4, proBNP 8210. Head CT and chest x-ray were without acute findings. EKG showed rapid atrial fibrillation with low QRS voltage in the precordial leads and nonspecific ST T-wave abnormalities. She was given diltiazem 10 mg IV and a p.o. dose of metoprolol tartrate and she is being transferred to the IMU in this setting for further treatment and workup. 79 y/o had been complaints of weakness and lower extremities cellulitis, patient cellulitis was recently treated with doxycycline and which has improved however her weakness and difficulty with ADL brought to outside ER and was found to have new onset Atrial fibrillation with RVR. patient was transferred to the hospital for further evaluation patient was started on Diltiazem drip 5mg, her HR did trended down but remain in upper 130 and increased diltiazem drip to 7.5mg, patient was seen by public transit trolley driver started patient on metoprolol succinate 200mg PO qd, and diltiazem 120mg PO daily, will stop diltiazem drip, patient being anticoagulated with Eliquis 5mg BID and further recommendation to follow. patient cardiac ECHO showed preserve LV function with grade II diastolic dysfunction. Review of Systems Review of Systems: 12 systems were reviewed and are negativ e except for as per HPI. Exam Narrative: Morbidly obese Patient is comfortable, NAD HEENT: eyes are clear and none icteric LUNGS:CTA HEART: Irregularly irregular ABD: BS+, Soft and nontender Lower extremities: no edema SKIN: nonjaundiced Neuro: grossly intact. Objective Data Vital Signs Vital Signs: Vital Signs - 24 hr 08/05/24 16:00 08/05/24 16:00 08/05/24 17:59 Temperature 37.3 C Pulse Rate 109 H 108 H 117 H Respiratory Rate 16 Blood Pressure 120/51 L Pulse Oximetry 95 Oxygen Delivery 08/05/24 18:00 08/05/24 18:00 08/05/24 19:24 Temperature 37.3 C 37.2 C Pulse Rate 128 H 91 120 H Respiratory Rate 12 20 Blood Pressure 118/60 105/38 L Pulse Oximetry 96 96 Oxygen Delivery 08/05/24 19:40 08/05/24 20:00 08/05/24 20:18 Temperature Pulse Rate 120 H 124 H 124 H Respiratory Rate 20 Blood Pressure 105/38 L Pulse Oximetry 96 Oxygen Delivery Room Air 08/05/24 21:59 08/05/24 22:00 08/05/24 22:00 Temperature Pulse Rate 106 H 107 H 107 H Respiratory Rate 20 Blood Pressure 119/34 L 119/74 Pulse Oximetry 98 Oxygen Delivery 08/05/24 22:00 08/06/24 00:00 08/06/24 00:10 Temperature 37.2 C Pulse Rate 107 H 93 91 Respiratory Rate 20 Blood Pressure 123/80 Pulse Oximetry 96 Oxygen Delivery 08/06/24 00:10 08/06/24 00:14 08/06/24 00:14 Temperature Pulse Rate 91 91 91 Respiratory Rate 20 Blood Pressure 123/80 123/80 Pulse Oximetry 96 Oxygen Delivery Room Air 08/06/24 01:46 08/06/24 01:48 08/06/24 01:48 Temperature Pulse Rate 74 74 74 Respiratory Rate Blood Pressure 97/63 L 97/63 L Pulse Oximetry Oxygen Delivery 08/06/24 03:45 08/06/24 03:45 08/06/24 03:45 Temperature 36.9 C Pulse Rate 80 80 80 Respiratory Rate 20 20 Blood Pressure 107/66 107/66 Pulse Oximetry 99 99 Oxygen Delivery Room Air 08/06/24 04:00 08/06/24 05:53 08/06/24 05:54 Temperature Pulse Rate 91 79 79 Respiratory Rate Blood Pressure 121/80 121/80 Pulse Oximetry Oxygen Delivery 08/06/24 05:55 08/06/24 05:56 08/06/24 08:00 Temperature 36.8 C Pulse Rate 79 79 83 Respiratory Rate 16 Blood Pressure 125/75 Pulse Oximetry 98 Oxygen Delivery 08/06/24 11:21 08/06/24 12:00 08/06/24 13:15 Temperature 37.1 C Pulse Rate 81 85 Respiratory Rate 20 Blood Pressure 127/66 Pulse Oximetry 99 Oxygen Delivery Room Air 08/06/24 14:00 Temperature 37.1 C Pulse Rate 101 H Respiratory Rate 16 Blood Pressure 99/63 L Pulse Oximetry 99 Oxygen Delivery Intake/Output Intake/Output: Intake & Output 08/03/24 08/04/24 08/05/24 08/06/24 23:59 23:59 23:59 23:59 Intake Total 16.5 1749.9 329.2 Output Total 700 220 Balance 16.5 1049.9 109.2 Meds/Results Medications: Active Medications Generic Name Dose Route Start Last Admin Trade Name Freq PRN Reason Stop Dose Admin Acetaminophen 650 mg 08/04/24 17:56 Acetaminophen 325 Mg Tablet PO Q6H PRN Mild Pain (1-3) or Fever Allopurinol 100 mg 08/05/24 09:00 08/06/24 10:02 Allopurinol 100 Mg Tablet PO 100 mg DAILY MARITO Administration Apixaban 5 mg 08/05/24 21:00 08/06/24 10:02 Apixaban 5 Mg Tablet PO 5 mg Q12HR MARITO Administration Atorvastatin Calcium 20 mg 08/05/24 09:00 08/06/24 10:01 Atorvastatin 20 Mg Tablet PO 20 mg DAILY MARITO Administration Doxycycline Hyclate 100 mg 08/04/24 18:00 08/06/24 05:55 Doxycycline Hyclate 100 Mg Tablet PO 100 mg Q12H MARITO Administration Sodium Chloride 1,000 mls @ 75 mls/hr 08/06/24 13:05 08/06/24 13:14 Normal Saline Iv IV CONT 75 mls/hr .[id number] MARITO Administration Latanoprost 1 drop 08/04/24 18:00 08/05/24 18:00 Latanoprost 0.005% Op Soln 2.5 Ml Btl RIGHT EYE 1 drop QPM MARITO Administration Losartan Potassium 25 mg 08/06/24 09:00 08/06/24 10:02 Losartan Potassium 25 Mg Tablet PO 25 mg DAILY MARITO Administration Magnesium Oxide 400 mg 08/05/24 09:00 08/06/24 10:02 Magnesium Oxide 400 Mg Tablet PO 400 mg DAILY MARITO Administration Metoprolol Succinate 200 mg 08/06/24 13:00 08/06/24 13:15 Metoprolol Succinate Ext Rel 100 Mg Tabcr PO 200 mg QAM MARITO Administration Oxybutynin Chloride 10 mg 08/04/24 18:00 08/05/24 18:00 Oxybutynin Chloride 5 Mg Tablet PO 10 mg QPM MARITO Administration Oxybutynin Chloride 5 mg 08/05/24 09:00 08/06/24 10:02 Oxybutynin Chloride 5 Mg Tablet PO 5 mg QAM MARITO Administration Sertraline HCl 50 mg 08/05/24 09:00 08/06/24 10:02 Sertraline Hcl 50 Mg Tablet PO 50 mg DAILY MARITO Administration Tramadol HCl 50 mg 08/04/24 17:57 Tramadol Hcl (*Crx) 50 Mg Tablet PO Q12H PRN pain 4-10 Radiology Results: ITS Impressions Chest CTA 08/05/24 11:32 IMPRESSION: 1. No pulmonary embolism. 2. Groundglass opacities in both lungs and favor atelectasis related to expiratory phase of imaging over mild pulmonary edema or pneumonia. 3. Partially visualized supraumbilical ventral hernia containing fat and a portion of the transverse colon. 4. Cardiomegaly. Labs Labs: Laboratory Results - last 24 hr 08/05/24 17:56 Urine Color Yellow Urine Appearance Clear Urine pH 5.5 Ur Specific [place] 1.042 H Urine Protein Trace Urine Glucose (UA) Negative Urine Ketones Negative Ur Blood (Man) Negative Urine Nitrate Negative Urine Bilirubin Negative Urine Urobilinogen 1.0 Leukocyte Esterase Rfl Trace H Urine RBC 0-2 Urine WBC 0-5 Ur Squamous Epith Cells Few Urine Bacteria None seen Urine Casts 0-2 Quality VTE Prophylaxis VTE prophylaxis: pharmacologic ordered
[2024-08-06] MEDS: CALCIUM CARBONATE (TUMS) 500 MG (200 MG ELEMENTAL) PO (16:09)
[2024-08-06] MEDS: oxyBUTYnin CHLORIDE 5 MG TABLET 10 MG PO (18:30)
[2024-08-06] MEDS: LATANOPROST 0.005% OP SOLN 2.5 ML BTL 1 DROP RIGHT EYE (18:32)
--- NOTE | 2024-08-06 21:39 | ECG_ITS ---
Test Date: 2024-08-06 21:58:07 Measurements Intervals [place] Rate: 71 P: 45 NE: 180 QRS: -14 QRSD: 86 T: 11 QT: 439 QTc: 480 Interpretive Statements SINUS RHYTHM LOW QRS VOLTAGE IN PRECORDIAL LEADS [QRS DEFLECTION < 1.0 mV IN CHEST LEADS] NONSPECIFIC ST- T WAVE CHANGES Compared to ECG 08/06/2024 11:04:44 Atrial fibrillation no longer present Ventricular premature complex(es) no longer present Aberrant conduction of supraventricular beat(s) no longer present Electronically Signed On 08-07-2024 14:57:31 CDT by Niraj Peacock M.D.
[2024-08-06] MEDS: LEVALBUTEROL NEB 1.25 MG/3 ML 0.63 MG INHALATION (23:00)
[2024-08-07] VITALS (12 sets, daily range): BP systolic 110–136; BP diastolic 59–91; PULSE 68–93; RESP 14–20; TEMP 35.7–37.4; O2SAT 96–100
[2024-08-07 04:41] LABS: Hematocrit 31.3 % (37.0-47.0); Hemoglobin 9.7 g/dL (12.0-15.0); Mean Corpuscular Hemoglobin 30.4 pg (26-34); Mean Corpuscular Volume 98.1 fl (80-100); Mean Platelet Volume 9.6 fl (7.4-10.4); Platelet Count Result 281 k/mm3 (150-375); Red Blood Count 3.19 M/mm3 (4.2-5.4); Red Cell Distribution Width 14.3 % (11.5-14.5); White Blood Count 8.4 K/mm3 (4.5-10.0)
[2024-08-07 04:53] LABS: Anion Gap 6 mmol/L (4-12); Blood Urea Nitrogen 21 mg/dL (7-17); Calcium 8.5 mg/dL (8.4-10.2); Carbon Dioxide 27 mmol/L (22-30); Chloride 103 mmol/L (98-107); Estimated CRCL calculation 48 ml/min; Estimated Glomerular Filt Rate 51; Glucose 102 mg/dL (65-110); Potassium 4.6 mmol/L (3.4-5.0); Sodium 136 mmol/L (137-145)
[2024-08-07] MEDS: DOXYCYCLINE HYCLATE 100 MG TABLET PO ×2 (06:47→17:23)
[2024-08-07] MEDS: ATORVASTATIN 20 MG TABLET PO (09:32)
[2024-08-07] MEDS: MAGNESIUM OXIDE 400 MG TABLET PO (09:33)
[2024-08-07] MEDS: allopurinoL 100 MG TABLET PO (09:33)
[2024-08-07] MEDS: LOSARTAN POTASSIUM 25 MG TABLET PO (09:33)
[2024-08-07] MEDS: oxyBUTYnin CHLORIDE 5 MG TABLET PO (09:33)
[2024-08-07] MEDS: APIXABAN 5 MG TABLET PO ×2 (09:33→20:12)
[2024-08-07] MEDS: METOPROLOL SUCCINATE EXT REL 100 MG TABCR 200 MG PO (09:37)
--- NOTE | 2024-08-07 15:00 | PM.IMPN ---
Progress Note: A&P Assessment and Plan (1) Atrial fibrillation with rapid ventricular response: Code(s): I48.91 - Unspecified atrial fibrillation Status: Acute (2) Hypokalemia: Code(s): E87.6 - Hypokalemia Status: Acute (3) Chronic kidney disease, stage 3: Code(s): N18.30 - Chronic kidney disease, stage 3 unspecified Status: Acute (4) Hypertension: Code(s): I10 - Essential (primary) hypertension Status: Acute (5) Hyperlipidemia: Code(s): E78.5 - Hyperlipidemia, unspecified Status: Acute (6) Glaucoma: Code(s): H40.9 - Unspecified glaucoma Status: Acute Plan The patient presented to the emergency department at the outside facility for evaluation of weakness and was found to be in atrial fibrillation with rapid ventricular response as detailed in HPI. Labs, imaging, EKG, and all reports were personally reviewed. She has no known history of atrial fibrillation but is a metoprolol tartrate 3 times a day which is quite unusual. Continue with metoprolol for now and initiate Cardizem drip as her rate still remains quite high. She received a dose of enoxaparin 1 mg/kg at the outside facility. Long discussion with the patient and her family members regarding risk versus benefit of anticoagulation and at this time we will hold on initiating a DOAC pending cardiology and therapy input. Echocardiogram an apnea link ordered. TSH is within normal limits. ProBNP is quite elevated though she really appears euvolemic. Pulmonary embolism is considered as a D-dimer done earlier this week was elevated however left lower extremity Doppler was negative for DVT. Recheck D-dimer and obtain chest CTA if significantly elevated. Kidney function is stable on review of previous labs. Blood pressures are reasonable and will be monitored. Replace potassium and monitor. The rest of her home medications will be reviewed and resumed as appropriate. Findings and treatment plan were discussed with the patient. Questions were solicited and answered to satisfaction. The patient's medical management will be taken over by the hospitalist team in a.m. 79 y/o had been complaints of weakness and lower extremities cellulitis, patient cellulitis was recently treated with doxycycline and which has improved however her weakness and difficulty with ADL brought to outside ER and was found to have new onset Atrial fibrillation with RVR. patient was transferred to the hospital for further evaluation patient was started on Diltiazem drip 5mg, her HR did trended down but remain in upper 130 and increased diltiazem drip to 7.5mg, on 08/06 patient was seen by corporate operations compliance manager started patient on metoprolol succinate 200mg PO qd, and diltiazem 120mg PO daily, stopped diltiazem drip, patient being anticoagulated with Eliquis 5mg BID and further recommendation to follow. patient cardiac ECHO showed preserve LV function with grade II diastolic dysfunction. today patient HT is stable, still in A. fib, will transfer patient out of IMU to [facility], today patient son and his are present patient is encourage to ambulate and work with PT/OT. will monitor. Subjective Date/time seen: 08/07/24 15:00 Interval history: New onset atrial fibrillation with rapid ventricular response. H&P-Narrative: This is a 79-year-old female with history of hypertension, hyperlipidemia, chronic kidney disease, glaucoma, overactive bladder, and depression who is being [place] [facility] [place] after she was found to be in atrial fibrillation with rapid ventricular response, presumably new onset. The patient provides the following history and her son and [id number] provide additional information with the patient's permission. She lives alone and ambulates with a wheeled walker. Over some months she has become increasingly weak and deconditioned and she has had a couple of falls requiring lift assist. She has help at home 3 days a week and she recently started physical therapy but family believes that she needs more care. Earlier this week she developed erythema and edema of the left lower leg and was seen in [place] at which time she was prescribed doxycycline for cellulitis with marked improvement. Lower extremity venous Doppler ultrasound was negative for DVT at that time. Today she was brought in for evaluation due to ongoing weakness which seems to be getting worse. It is now to the point where she is afraid to stand as she is worried about falling. She denies syncope, near syncope, vertigo, chest pain, palpitations, orthopnea, shortness of breath, nausea, vomiting, and diarrhea. She has intermittent dysuria and reports ongoing issues with incontinence which may be related to the fact that she is having difficulties getting up to the bathroom. In the ED: She was found to be in atrial fibrillation with rapid ventricular response, presumably a new diagnosis however the patient is prescribed metoprolol tartrate 3 times a day which is somewhat of an unusual dose. Labs were significant for hemoglobin of 10.9, sodium 134, potassium 3.3, BUN 24, creatinine 1.10, lactic acid 2.4, proBNP 8210. Head CT and chest x-ray were without acute findings. EKG showed rapid atrial fibrillation with low QRS voltage in the precordial leads and nonspecific ST T-wave abnormalities. She was given diltiazem 10 mg IV and a p.o. dose of metoprolol tartrate and she is being transferred to the IMU in this setting for further treatment and workup. 79 y/o had been complaints of weakness and lower extremities cellulitis, patient cellulitis was recently treated with doxycycline and which has improved however her weakness and difficulty with ADL brought to outside ER and was found to have new onset Atrial fibrillation with RVR. patient was transferred to the hospital for further evaluation patient was started on Diltiazem drip 5mg, her HR did trended down but remain in upper 130 and increased diltiazem drip to 7.5mg, on 08/06 patient was seen by corporate operations compliance manager started patient on metoprolol succinate 200mg PO qd, and diltiazem 120mg PO daily, stopped diltiazem drip, patient being anticoagulated with Eliquis 5mg BID and further recommendation to follow. patient cardiac ECHO showed preserve LV function with grade II diastolic dysfunction. today patient HT is stable, still in A. fib, will transfer patient out of IMU to [facility], today patient son and his are present patient is encourage to ambulate and work with PT/OT. will monitor. Review of Systems Review of Systems: 12 systems were reviewed and are negative except for as per HPI. Exam Narrative: Morbidly obese Patient is comfortable, NAD HEENT: eyes are clear and none icteric LUNGS:CTA HEART: Irregularly irregular ABD: BS+, Soft and nontender Lower extremities: no edema SKIN: nonjaundiced Neuro: grossly intact. Objective Data Vital Signs Vital Signs: Vital Signs - 24 hr 08/06/24 16:00 08/06/24 16:00 08/06/24 18:00 Temperature 36.7 C Pulse Rate 101 H 104 H 70 Respiratory Rate 12 Blood Pressure 109/88 Pulse Oximetry 100 Oxygen Delivery 08/06/24 18:00 08/06/24 20:00 08/06/24 20:05 Temperature 36.8 C 36.9 C Pulse Rate 97 76 75 Respiratory Rate 16 20 Blood Pressure 111/55 L 130/75 Pulse Oximetry 99 100 Oxygen Delivery 08/06/24 20:10 08/06/24 22:00 08/07/24 00:00 Temperature 36.8 C Pulse Rate 75 73 74 Respiratory Rate 20 18 Blood Pressure 131/80 Pulse Oximetry 100 98 Oxygen Delivery Room Air 08/07/24 00:00 08/07/24 00:02 08/07/24 02:00 Temperature Pulse Rate 73 74 70 Respiratory Rate 18 Blood Pressure Pulse Oximetry 98 Oxygen Delivery Room Air 08/07/24 04:00 08/07/24 04:00 08/07/24 04:00 Temperature 36.6 C Pulse Rate 72 72 68 Respiratory Rate 17 17 Blood Pressure 110/75 Pulse Oximetry 96 96 Oxygen Delivery Room Air 08/07/24 06:00 08/07/24 07:20 08/07/24 08:00 Temperature 36.8 C Pulse Rate 70 72 78 Respiratory Rate 14 Blood Pressure 136/87 Pulse Oximetry 97 Oxygen Delivery 08/07/24 09:37 08/07/24 10:00 08/07/24 12:00 Temperature 37.4 C Pulse Rate 79 75 77 Respiratory Rate 18 Blood Pressure 125/91 H Pulse Oximetry 98 Oxygen Delivery 08/07/24 12:00 08/07/24 12:00 Temperature Pulse Rate 77 73 Respiratory Rate Blood Pressure Pulse Oximetry Oxygen Delivery Intake/Output Intake/Output: Intake & Output 08/04/24 08/05/24 08/06/24 08/07/24 23:59 23:59 23:59 23:59 Intake Total 16.5 1749.9 1175.0 1360 Output Total 700 720 0 Balance 16.5 1049.9 455.0 1360 Meds/Results Medications: Active Medications Generic Name Dose Route Start Last Admin Trade Name Freq PRN Reason Stop Dose Admin Acetaminophen 650 mg 08/04/24 17:56 Acetaminophen 325 Mg Tablet PO Q6H PRN Mild Pain (1-3) or Fever Allopurinol 100 mg 08/05/24 09:00 08/07/24 09:33 Allopurinol 100 Mg Tablet PO 100 mg DAILY MARITO Administration Alprazolam 0.25 mg 08/07/24 11:51 Alprazolam (*Crx) 0.25 Mg Tablet PO TID PRN Anxiety Apixaban 5 mg 08/05/24 21:00 08/07/24 09:33 Apixaban 5 Mg Tablet PO 5 mg Q12HR MARITO Administration Atorvastatin Calcium 20 mg 08/05/24 09:00 08/07/24 09:32 Atorvastatin 20 Mg Tablet PO 20 mg DAILY MARITO Administration Calcium Carbonate 200 mg 08/06/24 15:55 08/06/24 16:09 Calcium Carbonate (Tums) 500 Mg (200 Mg Elemental) PO 200 mg Q6H PRN Administration Indigestion Doxycycline Hyclate 100 mg 08/04/24 18:00 08/07/24 06:47 Doxycycline Hyclate 100 Mg Tablet PO 100 mg Q12H MARITO Administration Latanoprost 1 drop 08/04/24 18:00 08/06/24 18:32 Latanoprost 0.005% Op Soln 2.5 Ml Btl RIGHT EYE 1 drop QPM MARITO Administration Levalbuterol HCl 0.63 mg 08/06/24 22:31 08/06/24 23:00 Levalbuterol Neb 1.25 Mg/3 Ml INHALATION 0.63 mg Q6HRT PRN Administration SOB or wheezing Losartan Potassium 25 mg 08/06/24 09:00 08/07/24 09:33 Losartan Potassium 25 Mg Tablet PO 25 mg DAILY MARITO Administration Magnesium Oxide 400 mg 08/05/24 09:00 08/07/24 09:33 Magnesium Oxide 400 Mg Tablet PO 400 mg DAILY MARITO Administration Metoprolol Succinate 200 mg 08/06/24 13:00 08/07/24 09:37 Metoprolol Succinate Ext Rel 100 Mg Tabcr PO 200 mg QAM MARITO Administration Oxybutynin Chloride 10 mg 08/04/24 18:00 08/06/24 18:30 Oxybutynin Chloride 5 Mg Tablet PO 10 mg QPM MARITO Administration Oxybutynin Chloride 5 mg 08/05/24 09:00 08/07/24 09:33 Oxybutynin Chloride 5 Mg Tablet PO 5 mg QAM MARITO Administration Sertraline HCl 50 mg 08/05/24 09:00 08/07/24 12:09 Sertraline Hcl 50 Mg Tablet PO Not Given DAILY MARITO Tramadol HCl 50 mg 08/04/24 17:57 Tramadol Hcl (*Crx) 50 Mg Tablet PO Q12H PRN pain 4-10 Radiology Results: ITS Impressions Chest CTA 08/05/24 11:32 IMPRESSION: 1. No pulmonary embolism. 2. Groundglass opacities in both lungs and favor atelectasis related to expiratory phase of imaging over mild pulmonary edema or pneumonia. 3. Partially visualized supraumbilical ventral hernia containing fat and a portion of the transverse colon. 4. Cardiomegaly. Labs Labs: Laboratory Results - last 24 hr 08/07/24 04:25 WBC 8.4 RBC 3.19 L Hgb 9.7 L Hct 31.3 L MCV 98.1 MCH 30.4 MCHC 31.0 L RDW 14.3 Plt Count 281 MPV 9.6 Sodium 136 L Potassium 4.6 Chloride 103 Carbon Dioxide 27 Anion Gap 6 BUN 21 H Creatinine 1.04 H Estim Creat Clear Calc 48 Estimated GFR 51 L Glucose 102 Calcium 8.5 Quality VTE Prophylaxis VTE prophylaxis: pharmacologic ordered
--- NOTE | 2024-08-07 15:08 | PC.NURSE ---
This patient, Tiana Wilson, was received from IMU room 231 on 08/07/24 at 1508. Patient/family oriented to unit policies and routines
[2024-08-07] MEDS: oxyBUTYnin CHLORIDE 5 MG TABLET 10 MG PO (17:23)
[2024-08-07] MEDS: LATANOPROST 0.005% OP SOLN 2.5 ML BTL 1 DROP RIGHT EYE (17:23)
[2024-08-08] VITALS (10 sets, daily range): BP systolic 114–152; BP diastolic 43–106; PULSE 61–74; RESP 18–20; TEMP 35.7–36.3; O2SAT 98–100
[2024-08-08] MEDS: DOXYCYCLINE HYCLATE 100 MG TABLET PO ×2 (05:22→17:38)
[2024-08-08 05:57] LABS: Hematocrit 30.9 % (37.0-47.0); Hemoglobin 9.5 g/dL (12.0-15.0); Mean Corpuscular HGB Conc 30.7 g/dl (32-36); Mean Corpuscular Hemoglobin 30.6 pg (26-34); Mean Corpuscular Volume 99.7 fl (80-100); Mean Platelet Volume 9.6 fl (7.4-10.4); Platelet Count Result 301 k/mm3 (150-375); Red Cell Distribution Width 14.3 % (11.5-14.5); White Blood Count 8.3 K/mm3 (4.5-10.0)
[2024-08-08 06:11] LABS: Anion Gap 4 mmol/L (4-12); Blood Urea Nitrogen 20 mg/dL (7-17); Calcium 8.5 mg/dL (8.4-10.2); Carbon Dioxide 26 mmol/L (22-30); Chloride 104 mmol/L (98-107); Estimated CRCL calculation 56 ml/min; Estimated Glomerular Filt Rate > 60; Glucose 99 mg/dL (65-110); Magnesium 1.9 mg/dL (1.6-2.3); Potassium 4.2 mmol/L (3.4-5.0); Sodium 134 mmol/L (137-145)
--- OUTSIDE RECORDS SUMMARY | 2024-08-08 08:31 | XMS_ITS | Data Portability ---
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, MERCHANDISE MARKER-BC Not available Not available Not available Lab uric acid, serum or plasma 2024 025 eemeryma [facility], [address] [place] [address], [address], 08/02/2024 11:28:17 lipid panel, serum 2024 025 eemeryma [facility], [address] [place] [address], [place], [address], 08/02/2024 11:28:17 drug screen, 14 drugs (detect imed), urine 2024 025 eemeryma [facility], [address] [place] [address], [place], [address], 08/02/2024 11:28:18 culture , urine 2024 025 eemeryma [facility], [address] [place] [address] 2, [place], [address], 08/02/2024 11:28:17 urinaly sis, complet e 2024 025 eemeryma [facility], [address] [place] [address], [place], [address], 08/02/2024 11:28:18 CBC w/ auto diff 2024 025 eemeryma [facility], [address] [place] [address], [place], [address], 08/02/2024 11:28:17 TSH + free T4, serum 2024 025 eemeryma [facility], [address] [place] [address], [place], [address], 08/02/2024 11:28:17 CMP, serum or plasma 2024 025 eemeryma [facility], [address] [place] [address], [place], [address], 08/02/2024 11:28:17 HbA1c (hemogl obin A1c), blood 2024 025 NASIM [facility], [address] [place] [address], [place], [address], 07/12/2024 15:29:08 BNP (B-type natriur etic peptide ), serum or plasma 2024 025 eemeryma [facility], [address] [place] [address], [place], [address], 08/02/2024 11:28:17 fecal occult blood, immunoa ssay, stool 2023 024 jschulterma [facility], [address] [place] [address], [place], [address], 05/29/2024 08:24:01 CBC w/ auto diff 2023 024 dturnerma [facility], [address] [place] [address], [place], [address], 05/31/2024 09:31:50 CMP, serum or plasma 2023 024 dturnerma [facility], [address] [facility], [place], [address], 05/31/2024 09:32:03 lipid panel, serum 2023 024 dturnerma [facility], [address] [facility], [facility], [place], [address], 05/31/2024 09:32:09 HbA1c (hemogl obin A1c), blood 2022 023 [facility], [address] [facility], [facility], [place], [address], 05/03/2023 12:07:22 CBC w/ auto diff 2022 023 NASIM [facility], [address] [facility], [facility], [place], [address], 12/18/2022 15:17:35 CMP, serum or plasma 2022 023 NASIM [facility], [address] [facility], [facility], [place], [address], 12/18/2022 15:17:35 fecal occult blood, immunoa ssay, stool 2022 023 jschulterma [facility], [address] [facility], [facility], [place], [address], 04/02/2023 11:51:25 lipid panel, serum 2022 023 NASIM [facility], [address] [facility], [facility], [place], [address], 12/18/2022 15:17:35 TSH, ultra-s ensitiv e, serum 2022 023 NASIM [facility], [address] [facility], [facility], [place], [address], 12/18/2022 15:17:35 CBC w/ auto diff 2022 023 NASIM [facility], [address], [place], [address], 06/29/2022 15:13:06 CMP, serum or plasma 2022 023 NASIM [facility], [address], [place], [address], 06/29/2022 15:13:04 lipid panel, serum 2022 023 NASIM [facility], [address], [place], [address], 06/29/2022 15:13:06 CBC w/ auto diff 2021 022 NASIM [facility], [address], [place], [address], 01/31/2022 08:19:23 lipid panel, serum 2021 022 NASIM [facility], [address], [place], [address], 01/31/2022 08:19:22 CMP, serum or plasma 2021 022 NASIM [facility], [address] [facility] [address], [place], [address], 01/31/2022 08:19:23 Referral nephrol ogist referra l 2024 025 [facility], [address], [place], [address], 08/02/2024 11:28:[address] referra l 2024 025 [facility], [address] [facility], [place], [address], 07/18/2024 19:43:[address] referra l [address] [facility], [address], [place], [address], 05/31/2024 09:32:[address] referra l 2022 023 [facility], [address] [place], [address], 07/16/2022 17:20:01 Procedures None recorde d. Surgeries None recorde d. Imaging None recorde d. Medication Orders atorvas tatin 20 mg tablet 2023 024 [facility], [address] [place] [address], [address], 01/14/2024 15:01:00 oxybuty sanjeev chlorid e 5 mg tablet 2022 023 [facility], [address] [place], [address], 06/29/2022 15:13:05 Patient TargetsNo targets recorded. Patient Instructions Encounter Date Encounter Id Patient Instructions Last Modified By Organization Details Last Modified Time 01/30/2022 [id number] f/u in 3month/lab nsuthan Not availab le 01/30/2022 15:13:20 06/29/2022 [id number] A healthy lifestyle: care instructions nsuthan Not available 06/29/2022 15:12:59 f/u in 4 month nsuthan Not available 0 06/29/2022 15:13:30 12/18/2022 [id number] A healthy lifestyle: care instructions nsuthan Not available 12/18/2022 15:17:20 stool kit/f/u in 4 month nsuthan Not available 12/18/2022 15:20:52 01/14/2024 [id number] stool kit /f/u i n 3 month nsuthan Not available 01/14/2024 14:48:49 07/12/2024 [id number] Plan of care has been discussed with [...] - PPV 23: 02/21/18, 05/15/15 - Tdap/Td ([id number]): 02/26/16 - Zoster (>60): 06/14/15 - COVID-19: [...] [facility], Encounter Date: 01/14/[address] [employer] Referral for Ch ronic kidney disease stage 3A Referring Physician: Tana Brooks [facility], Encounter Date: 07/12/2024 Physical Therapist Referral for Weakness of bilateral lower limb Referring Physician: Tana Brooks [facility], Encounter Date: 07/12/2024 Results Created Date Observation Date Name Description Value Unit Range Abnormal Flag Note LastModifiedBy Organization Detail LastModifiedTime 01/31/2001/31/2022 LIPID PANEL cholesterol, total 151 mg/dL 100-19 9 Not Available [facility] ([facility]) [address], [place], [address], 01/31/2022 08:19:22 01/31/20 22 01/31/2022 LIPID PANEL triglyceride s 111 mg/dL 0-149 Not Available [facility] ([facility]) [address] [place], [address], 01/31/2022 08:19:22 01/31/20 22 01/31/2022 LIPID PANEL HDL cholesterol 49 mg/dL >39 Not Available [facility] ([facility]) [address] [place], [address], 01/31/2022 08:19:22 01/31/20 22 01/31/2022 LIPID PANEL VLDL cholesterol benedicto 20 mg/dL 5-40 Not Available [facility] ([facility]) [address] [place], [address], 01/31/2022 08:19:22 01/31/20 22 01/31/2022 LIPID PANEL LDL chol calc ([facility]) 82 mg/dL 0-99 Not Available [facility] ([facility]) [address] [place], [address], 01/31/2022 08:19:22 01/31/20 22 01/31/2022 COMP. METAB OLIC PANEL (14) glucose 85 mg/dL 70-99 Not Available [facility] ([facility]) [address] [place], [address], 01/31/2022 08:19:23 01/31/20 22 01/31/2022 COMP. METAB OLIC PANEL (14) BUN 16 mg/dL 8-27 Not Available [facility] ([facility]) [address] [place], [address], 01/31/2022 08:19:23 01/31/20 22 01/31/2022 COMP. METAB OLIC PANEL (14) creatinine 1.25 mg/dL 0.57-1 .00 above high normal Not Available [facility] ([facility]) [address] [place], [address], 01/31/2022 08:19:23 01/31/20 22 01/31/2022 COMP. METAB OLIC PANEL (14) eGFR 45 mL/mi n/1.7 3 >59 below low normal Not Available [facility] ([facility]) [address] [facility], [place], [address], 01/31/2022 08:19:23 01/31/20 22 01/31/2022 COMP. METAB OLIC PANEL (14) BUN/creatini ne ratio 13 12-28 Not Available [facility] ([facility]) [address] [facility], [place], [address], 01/31/2022 08:19:23 01/31/20 22 01/31/2022 COMP. METAB OLIC PANEL (14) sodium 137 mmol/ L 134-14 4 Not Available [facility] ([facility]) [address] [facility], [place], [address], 01/31/2022 08:19:23 01/31/20 22 01/31/2022 COMP. METAB OLIC PANEL (14) potassium 4.5 mmol/ L 3.5-5. 2 Not Available [facility] ([facility]) [address] [facility], [place], [address], 01/31/2022 08:19:23 01/31/20 22 01/31/2022 COMP. METAB OLIC PANEL (14) chloride 97 mmol/ L 96-106 Not Available [facility] ([facility]) [address] [place], [address], 01/31/2022 08:19:23 01/31/20 22 01/31/2022 COMP. METAB OLIC PANEL (14) carbon dioxide, total 21 mmol/ L 20-29 Not Available [facility] ([facility]) [address] [place], [address], 01/31/2022 08:19:23 01/31/20 22 01/31/2022 COMP. METAB OLIC PANEL (14) calcium 9.3 mg/dL 8.7-10 .3 Not Available [facility] ([facility]) [address] [place], [address], 01/31/2022 08:19:23 01/31/20 22 01/31/2022 COMP. METAB OLIC PANEL (14) protein, total 6.7 g/dL 6.0-8. 5 Not Available [facility] ([facility]) [address] [place], [address], 01/31/2022 08:19:23 01/31/20 22 01/31/2022 COMP. METAB OLIC PANEL (14) albumin 4.2 g/dL 3.7-4. 7 Not Available [facility] ([facility]) [address] [place] [place], [address], 01/31/2022 08:19:23 01/31/20 22 01/31/2022 COMP. METAB OLIC PANEL (14) globulin, total 2.5 g/dL 1.5-4. 5 Not Available [facility] ([facility]) [address] [place], [address], 01/31/2022 08:19:23 01/31/20 22 01/31/2022 COMP. METAB OLIC PANEL (14) A/G ratio 1.7 1.2-2. 2 Not Available [facility] ([facility]) [address] [place] [place], [address], 01/31/2022 08:19:23 01/31/20 22 01/31/2022 COMP. METAB OLIC PANEL (14) bilirubin, total 0.4 mg/dL 0.0-1. 2 Not Available [facility] ([facility]) [address] [place], [address], 01/31/2022 08:19:23 01/31/20 22 01/31/2022 COMP. METAB OLIC PANEL (14) alkaline phosphatase 43 IU/L 44-121 below low normal Not Available [facility] ([facility]) [address] [facility], [place], [address], 01/31/2022 08:19:23 01/31/20 22 01/31/2022 COMP. METAB OLIC PANEL (14) AST (SGOT) 22 IU/L 0-40 Not Available [facility] ([facility]) [address], [place], [address], 01/31/2022 08:19:23 01/31/20 22 01/31/2022 COMP. METAB OLIC PANEL (14) ALT (SGPT) 9 IU/L 0-32 Not Available [facility] ([facility]) [address] [place], [address], 01/31/2022 08:19:23 01/31/20 22 01/31/2022 CBC WITH DIFFE RENTI AL/PL ATELE T WBC 7.2 x10e3 /uL 3.4-10 .8 Not Available [facility] ([facility]) [address] [facility], [place], [address], 01/31/2022 08:19:23 01/31/20 22 01/31/2022 CBC WITH DIFFE RENTI AL/PL ATELE T RBC 4.18 x10e6 /uL 3.77-5 .28 Not Available [facility] ([facility]) [address] [facility] [place], [address], 01/31/2022 08:19:23 01/31/20 22 01/31/2022 CBC WITH DIFFE RENTI AL/PL ATELE T hemoglobin 12.9 g/dL 11.1-1 5.9 Not Available [facility] ([facility]) [address] [facility] [place], [address], 01/31/2022 08:19:23 01/31/20 22 01/31/2022 CBC WITH DIFFE RENTI AL/PL ATELE T hematocrit 38.9 % 34.0-4 6.6 Not Available [facility] ([facility]) [address] [facility], [place], [address], 01/31/2022 08:19:23 01/31/20 22 01/31/2022 CBC WITH DIFFE RENTI AL/PL ATELE T MCV 93 fL 79-97 Not Available [facility] ([facility]) [address] [facility], [place], [address], 01/31/2022 08:19:23 01/31/20 22 01/31/2022 CBC WITH DIFFE RENTI AL/PL ATELE T MCH 30.9 pg 26.6-3 3.0 Not Available [facility] ([facility]) [address] [facility], [place], [address], 01/31/2022 08:19:23 01/31/20 22 01/31/2022 CBC WITH DIFFE RENTI AL/PL ATELE T MCHC 33.2 g/dL 31.5-3 5.7 Not Available [facility] ([facility]) [address] [facility], [place], [address], 01/31/2022 08:19:23 01/31/20 22 01/31/2022 CBC WITH DIFFE RENTI AL/PL ATELE T RDW 13.1 % 11.7-1 5.4 Not Available [facility] ([facility]) [address] [facility], [place], [address], 01/31/2022 08:19:23 01/31/20 22 01/31/2022 CBC WITH DIFFE RENTI AL/PL ATELE T platelets 249 x10e3 /uL 150-45 0 Not Available [facility] ([facility]) [address] [facility], [place], [address], 01/31/2022 08:19:23 01/31/20 22 01/31/2022 CBC WITH DIFFE RENTI AL/PL ATELE T neutrophils 67 % notest ab. Not Available [facility] ([facility]) [address] [facility], [place], [address], 01/31/2022 08:19:23 01/31/20 22 01/31/2022 CBC WITH DIFFE RENTI AL/PL ATELE T lymphs 23 % notest ab. Not Available [facility] ([facility]) [address] [facility], [place], [address], 01/31/2022 08:19:23 01/31/20 22 01/31/2022 CBC WITH DIFFE RENTI AL/PL ATELE T monocytes 8 % notest ab. Not Available [facility] ([facility]) [address] [facility], [place], [address], 01/31/2022 08:19:23 01/31/20 22 01/31/2022 CBC WITH DIFFE RENTI AL/PL ATELE T eos 1 % notest ab. Not Available [facility] ([facility]) [address] [facility], [place], [address], 01/31/2022 08:19:23 01/31/20 22 01/31/2022 CBC WITH DIFFE RENTI AL/PL ATELE T basos 1 % notest ab. Not Available [facility] ([facility]) [address] [facility], [place], [address], 01/31/2022 08:19:23 01/31/20 22 01/31/2022 CBC WITH DIFFE RENTI AL/PL ATELE T neutrophils (absolute) 4.7 x10e3 /uL 1.4-7. 0 Not Available [facility] ([facility]) [address] [facility], [place], [address], 01/31/2022 08:19:23 01/31/20 22 01/31/2022 CBC WITH DIFFE RENTI AL/PL ATELE T lymphs (absolute) 1.7 x10e3 /uL 0.7-3. 1 Not Available [facility] ([facility]) [address] [facility], [place], [address], 01/31/2022 08:19:23 01/31/20 22 01/31/2022 CBC WITH DIFFE RENTI AL/PL ATELE T monocytes(ab solute) 0.6 x10e3 /uL 0.1-0. 9 Not Available [facility] ([facility]) [address] [facility], [place], [address], 01/31/2022 08:19:23 01/31/20 22 01/31/2022 CBC WITH DIFFE RENTI AL/PL ATELE T eos (absolute) 0.1 x10e3 /uL 0.0-0. 4 Not Available [facility] ([facility]) [address] [place], [address], 01/31/2022 08:19:23 01/31/20 22 01/31/2022 CBC WITH DIFFE RENTI AL/PL ATELE T baso (absolute) 0.1 x10e3 /uL 0.0-0. 2 Not Available [facility] ([facility]) [address] [facility], [place], [address], 01/31/2022 08:19:23 01/31/20 22 01/31/2022 CBC WITH DIFFE RENTI AL/PL ATELE T immature granulocytes 0 % notest ab. Not Available [facility] ([facility]) [address] [facility], [place], [address], 01/31/2022 08:19:23 01/31/20 22 01/31/2022 CBC WITH DIFFE RENTI AL/PL ATELE T immature grans (abs) 0.0 x10e3 /uL 0.0-0. 1 Not Available [facility] ([facility]) [address] [place], [address], 01/31/2022 08:19:23 02/19/20 22 02/18/2022 elect chasity reynolds am No observ ation record ed. nsuthjermaine [facility] (Cardiology) [address] [place], [address], 02/19/2022 09:06:43 02/26/2002/18/2022 [place], echoc ardio gram No observ ation record ed. [address] [place], [address], 02/26/2022 15:39:37 03/05/20 22 02/18/2022 [place], echoc ardio gram No observ ation record ed. nsuthan [address] [place], [address], 03/05/2022 11:37:43 Result Notes None recorded. Problems Name Problem SNOMED Code Status Onset Date Resolution Date Notes Provider Name and Address Organization Details Recorded Time Cervical spondylosi s 043823087 Active 2018 xray 01/31-augusto re arthritis Tato Damon MD Attn: Evgeny g,[address] [facility], [place], [address], [place] [facility] 2 14:57:56 Essential hypertensi on 58348284 Active Tato Damon MD Attn: Evgeny g,[address] [facility], [place], [address], [place] [facility] 2 14:57:57 Chronic renal failure 99999762 Active Dr.Bentley Tato Damon MD Attn: Evgeny g,[address] [facility], [place], [address], [place] [facility] 2 14:57:57 Urinary incontinen ce 225325054 Active Tato Damon MD Attn: Accountjamin g,[address] [facility], [place], [address], [place] [facility] 2 14:57:56 Osteoarthr itis of knee 098501980 Active Tato Damon MD Attn: Accountjamin g,[address] [facility], [place], [address], [place] [facility] 2 14:57:56 Hyperglyce gabriel 49096082 Active 2021 Barb Patel MA null, [place] - [facility] 2 12:03:07 Hyperlipid emia 38309785 Active Tato Damon MD Attn: Evgeny ingram,[address] [facility], [place], [address], [place] - [facility] 2 14:57:56 Intermitte nt palpitatio ns 718034894 Active 2021 Tato Damon MD Attn: Evgeny ingram,[address] [facility], [place], [place], [address] [place] [address], [place] - [facility] 2 15:09:56 Anxiety disorder 705573826 Active 2021 Tato Damon MD Attn: Evgeny ingram,[address] [facility], [place], [place], [address] [place] [address] 2, [facility] - [facility] 2 15:09:59 Gastroesop hageal reflux disease without esophagiti s 944904460 Active 2021 Tato Damon MD Attn: Evgeny ingram,[address] [facility], [place], [address], [facility] - [facility] 2 15:10:00 Blind left eye 751494373 Active 2023 Tato Damon MD Attn: Evgeny ingram,[address] [facility], [place], [address], [place] - [facility] 4 14:44:48 Morbid obesity 606348865 Active Tato Damon MD Attn: Evgeny juan jose,[address] [facility], [place], [address], [place] - [facility] 2 14:57:56 Notes:echo 03/05 -EF55-60% Problem Notes None recorded. Procedures Surgical History Date Name Laterality Status Provider Name and Address Organization Details Recorded Time 07/14/19 21 Most Recent Mammogram completed Felisa Castellano [place] [facility] 12/19/2021 15:14:59 Eye Surgery completed Aretha Davis [place] [facility] 04/26/2014 15:49:12 Appendectomy completed ARA Calab[place] - [facility] 04/26/2014 15:49:12 Hysterectomy completed Aretha Davis [place] - [facility] 04/26/2014 15:49:12 Joint Replacement completed Aretha Davis MA [facility] 04/26/2014 15:49:12 Caesarean Section completed Aretha Davis [place] - [facility] 04/26/2014 15:49:12 Imaging Results None recorded. Procedure Notes None recorded. Medical Equipment None [...] t Available Vitals Date Recorded Body height Body mass index (BMI) Body weight Heart rate Respiratory rate Body temperature Oxygen saturation Oxygen saturation in Arterial blood by Pulse oximetry Systolic And Diastolic Provider Name and Address Organization Details Last Updated DateTime 3 157.48 cm 44.5 kg/m2 760079. 02 g 82 /min 12 /min 97.1 [degF] 95 % 95 % 124/77 mm[Hg] Barb Patel MA [place] - [facility] 3 14:53:07 Date Recorded Body height Oxygen saturation Oxygen saturation in Arterial blood by Pulse oximetry Heart rate Respiratory rate Body temperature Systolic And Diastolic Provider Name and Address Organization Details Last Updated DateTime 5 157.48 cm 96 % 96 % 64 /min 14 /min 97.2 [degF] 119/77 mm[Hg] Barb Patel MA [place] - [facility] 5 15:14:54 Date Recorded Body height Body mass index (BMI) Body weight Heart rate Respiratory rate Body temperature Oxygen saturation Oxygen saturation in Arterial blood by Pulse oximetry Systolic And Diastolic Provider Name and Address Organization Details Last Updated DateTime 3 157.48 cm 45 kg/m2 561396. 72 g 96 /min 14 /min 98 [degF] 95 % 95 % 120/78 mm[Hg] Carmelita Armentate [facility] 3 15:08:33 Date Recorded Body height Heart rate Respiratory rate Body temperature Oxygen saturation Oxygen saturation in Arterial blood by Pulse oximetry Systolic And Diastolic Provider Name and Address Organization Details Last Updated DateTime 4 157.48 cm 72 /min 16 /min 97.7 [degF] 98 % 98 % 124/80 mm[Hg] Shakira Garza MA [facility] 4 14:29:52 Date Recorded Body height Heart rate Respiratory rate Body temperature Oxygen saturation Oxygen saturation in Arterial blood by Pulse oximetry Body mass index (BMI) Body weight Systolic And Diastolic Provider Name and Address Organization Details Last Updated DateTime 2 157.48 cm 71 /min 14 /min 97.5 [degF] 97 % 97 % 44.4 kg/m2 022522. 23 g 128/86 mm[Hg] Saba Tom MA [facility] 2 15:03:18 Social History Question Answer Notes LastModified by Organizat ion Details LastModified Time Tobacco Smoking Status Never Smoker Aretha Davis MA null, [facility] 04/26/2014 15:49:12 Do You Have An Advance [...] Do You Have Serious Difficulty Hearing? No Information not available 08/23/2020 What Type Of Diet Are You Following? REGULAR Information not available 02/26/2016 Which Illicit Or Recreational Drugs Have You Used? Denies Information not available 02/26/2016 What Is The Highest Grade Or Level Of School You Have Completed Or The Highest Degree You Have Received? [id number] Information not available 12/23/2020 Are There Any [...] Seat Belt Or Car Seat Routinely? Yes [email or web address] Information not available 08/23/2020 Seat Belts Used Routinely Yes Information not available 08/29/2018 Do You Have Smoke And Carbon Monoxide Detectors In Your Home? Yes [email or web address] Information not available 08/23/2020 How Much Tobacco Do You Smoke? No Information not available 04/26/2019 General Stress Level Medium [email or web address] Information not available 12/13/2019 Do You Use Sunscreen Routinely? Yes When Needed Information not available 08/29/2018 Has Tobacco Cessation Counseling Been Provided? Yes [email or web address] Information not available 12/18/2022 On What Date Was Tobacco Cessation Counseling Provided? 07/12/2024 Information not available 07/12/2024 Sex: Female Functional Status Question Answer Note LastModified by Organizat ion Details LastModified Time Do you use any illicit or recreational drugs? No [email or web address] Information not available 08/23/2020 Do you or have you ever used any other forms of tobacco or nicotine? No [email or web address] Information not available 08/23/2020 What is your level of alcohol consumption? None Rarely Information not available 07/12/2024 Do you or have you ever used smokeless tobacco? Never used smokeless tobacco Information not available 04/26/2019 Are you currently employed? No Information not available 12/23/2020 Are you able to care for yourself? 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 Never used electronic cigarettes Information not available 04/26/2019 What is your exercise level? Occasional Walk [email or web address] Information not available 12/19/2021 Mental Status Question Answer Note LastModified by Organization D etails LastModified Time Do you feel stressed (tense, restless, nervous, or anxious, or unable to sleep at night)? [id number] Information not available 12/23/2020 Family History Relationship [...] Hepatitis N Liver Disease N Heart Attack (ND) N Headaches N Heart Failure N Gynecological History Statement/Question Response Most Recent Mammogram 07/13/2020 Obstetrics History GPAL:G 0 P 0 0 0 0 Immunizations Vaccine Type Date Status Note Provider Nam e and Address Organization Details Recorded Time Pneumococcal conjugate PCV 13 6 completed Not Available [facility] 04/01/2019 02:44:17 Influenza, split virus, quadrivalent, preservative 9 completed Barb Patel null, [place] - [facility] 01/11/2019 14:44:47 Influenza, high-dose, quadrivalent, PF 1 completed Barb Patel [place] null, [place] [facility] 12/23/2020 17:27:58 COVID-19, mRNA, LNP-S, PF, 30 mcg/0.3 mL dose 1 completed Barb Patel [place], [place] [facility] 01/23/2021 09:40:18 Influenza, split virus, quadrivalent, preservative 6 completed Not Available [facility] 04/01/2019 02:49:47 COVID-19, mRNA, LNP-S, bivalent, PF, 30 mcg/0.3 mL dose 2 completed Barb Patel [place], [place] [facility] 01/27/2022 13:58:14 Tdap 6 completed Not Available [facility] 04/01/2019 02:41:32 COVID-19, mRNA, LNP-S, PF, 30 mcg/0.3 mL dose 3 completed Carmelita Berumen [place] [facility] 01/08/2023 08:25:01 RSV, recombinant, protein subunit RSVpreF, adjuvant reconstituted, 0.5 mL, PF 4 completed Barb Patel [place] [facility] 04/21/2023 17:23:03 RSV, recombinant, protein subunit RSVpreF, adjuvant reconstituted, 0.5 mL, PF 4 completed Barb Patel MA null, [place] - [facility] 04/21/2023 17:46:53 Influenza, split virus, quadrivalent, preservative 7 completed Not Available [facility] 04/01/2019 02:34:25 Influenza, split virus, quadrivalent, preservative 8 completed Not Available [facility] 04/01/2019 02:47:53 pneumococcal polysaccharide PPV23 8 completed Not Available [facility] 04/01/2019 02:36:57 Influenza, high-dose, quadrivalent, PF 2 completed Tato Damon MD Attn: Accounting[address] [place], [address], [facility] 12/19/2021 15:53:36 zoster live 6 completed Taot Damon MD Attn: Accounting[address] [place], [address], [facility] 02/26/2016 15:42:22 Influenza, high-dose, quadrivalent, PF 3 completed Tato Damon MD Attn: Accounting[address] [place], [address], [facility] - [facility] 12/18/2022 16:12:54 Influenza, high-dose, trivalent, PF 4 completed Shakira Garza MA null, [place] [facility] 01/14/2024 15:10:24 Influenza, split virus, quadrivalent, preservative 5 completed Not Available [facility] 04/01/2019 02:45:27 Past Encounters Encounter ID Performer Location Encounter Start Date Encounter Closed Date Diagnosis/Indication Diagnosis SNOMED-CT Code Diagnosis ICD10 Code Diagnosis Note [id number] Tato Damon MD [facility] (Adult Med) [address] [place] [address] 04/26/2014 15:35:04 04/26/2014 17:52:25 Essential hypertension 66727110 continue same Chronic renal failure 74232754 As per who moved to [facility] pt may switch to different nephro Screening mammography 18061015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
--- OUTSIDE RECORDS SUMMARY | 2024-08-08 08:31 | XMS_ITS | Continuity of Care Document ---
Author Organization [facility] Address [address] [place] [address] Phone Care Team Providers Care Railroad Track Inspector Name Role Phone Vanita Dowd MD Unavailable Unavailable Procedures Procedure Date Post-op Follow-up Visit Post-op Follow-up Visit Remove Cataract, Insert Lens Office Consultation Echo Exam Of Eye Advance Directives Directive Yes / No Effective Date File Name No Information Encounters Encounter Description Practice Location Reason(s) For Visit Diagnoses Date Provider Providers Copied on Encounter [facility], [id number] [place] [address] [address], [place], [place], [id number], [place] tel:[phone] SEC Bhupinder MOBLEY Professional No Information [address]. [address] [facility] [place], [address], [place]. tel:[phone] Referring Provider: Kelly Borges, [address] [place] [address] [place], [address]. [facility], [address], [place], [place], [id number], [place] tel:[phone] SEC Bhupinder ITZ Professional No Information [address]. [address] [facility], [facility], [place], [address], [place]. tel:[phone] [facility], [address] [place] [address] [address], [place], [place], [id number], tel:[phone] [facility] No Information Nile Waldron. [address], [facility] [place], [address], [place]. tel:[phone] Referring Provider: Kelly Borges, [address] [place] [address] Eye [facility], [place], [address]. Office Consultation [facility] Eye [facility], [address], [place], [place], [id number], [phone] SEC Bhupinder [place] Professional No Information Nile Waldron. [address], [facility] [place], [address], [place]. tel:[phone] Referring Provider: Kelly Borges, [address] [place] [address] Eye [facility], [place], [address]. Family History Family Member Type Diagnosis Age [...]
--- OUTSIDE RECORDS SUMMARY | 2024-08-08 08:32 | XMS_ITS | Clinical Summary ---
Author Organization [facility] Facility Address [address] [address] Care Team Providers Care Regional Medical Director Name Role Phone Tato Damon MD Primary Care Provider [phone] Allergies No known active allergies Medications aspirin [...] age to complete this topic Care Teams Regional Medical Director Relationship Specialty Start Date End Date Tato Damon MD [address] [id number] PCP - General Internal Medicine 06/27/21
[2024-08-08] MEDS: APIXABAN 5 MG TABLET PO ×2 (09:13→20:33)
[2024-08-08] MEDS: MAGNESIUM OXIDE 400 MG TABLET PO (09:13)
[2024-08-08] MEDS: METOPROLOL SUCCINATE EXT REL 100 MG TABCR 200 MG PO (09:13)
[2024-08-08] MEDS: allopurinoL 100 MG TABLET PO (09:13)
[2024-08-08] MEDS: LOSARTAN POTASSIUM 25 MG TABLET PO (09:13)
[2024-08-08] MEDS: oxyBUTYnin CHLORIDE 5 MG TABLET PO (09:14)
[2024-08-08] MEDS: ATORVASTATIN 20 MG TABLET PO (09:14)
[2024-08-08] MEDS: ALPRAZolam (*CRX) 0.25 MG TABLET PO ×2 (09:14→17:38)
--- NOTE | 2024-08-08 17:26 | PM.IMPN ---
Progress Note: A&P Assessment and Plan (1) Atrial fibrillation with rapid ventricular response: Code(s): I48.91 - Unspecified atrial fibrillation Status: Acute (2) Hypokalemia: Code(s): E87.6 - Hypokalemia Status: Acute (3) Chronic kidney disease, stage 3: Code(s): N18.30 - Chronic kidney disease, stage 3 unspecified Status: Acute (4) Hypertension: Code(s): I10 - Essential (primary) hypertension Status: Acute (5) Hyperlipidemia: Code(s): E78.5 - Hyperlipidemia, unspecified Status: Acute (6) Glaucoma: Code(s): H40.9 - Unspecified glaucoma Status: Acute Plan The patient presented to the emergency department at the outside facility for evaluation of weakness and was found to be in atrial fibrillation with rapid ventricular response as detailed in HPI. Labs, imaging, EKG, and all reports were personally reviewed. She has no known history of atrial fibrillation but is a metoprolol tartrate 3 times a day which is quite unusual. Continue with metoprolol for now and initiate Cardizem drip as her rate still remains quite high. She received a dose of enoxaparin 1 mg/kg at the outside facility. Long discussion with the patient and her family members regarding risk versus benefit of anticoagulation and at this time we will hold on initiating a DOAC pending cardiology and therapy input. Echocardiogram an apnea link ordered. TSH is within normal limits. ProBNP is quite elevated though she really appears euvolemic. Pulmonary embolism is considered as a D-dimer done earlier this week was elevated however left lower extremity Doppler was negative for DVT. Recheck D-dimer and obtain chest CTA if significantly elevated. Kidney function is stable on review of previous labs. Blood pressures are reasonable and will be monitored. Replace potassium and monitor. The rest of her home medications will be reviewed and resumed as appropriate. Findings and treatment plan were discussed with the patient. Questions were solicited and answered to satisfaction. The patient's medical management will be taken over by the hospitalist team in a.m. 79 y/o had been complaints of weakness and lower extremities cellulitis, patient cellulitis was recently treated with doxycycline and which has improved however her weakness and difficulty with ADL brought to outside ER and was found to have new onset Atrial fibrillation with RVR. patient was transferred to the hospital for further evaluation patient was started on Diltiazem drip 5mg, her HR did trended down but remain in upper 130 and increased diltiazem drip to 7.5mg, on 08/06 patient was seen by plant ecologist started patient on metoprolol succinate 200mg PO qd, and diltiazem 120mg PO daily, stopped diltiazem drip, patient being anticoagulated with Eliquis 5mg BID and further recommendation to follow. patient cardiac ECHO showed preserve LV function with grade II diastolic dysfunction. today patient HR is stable, still in A. fib, was transferred patient out of IMU to [facility], on 08/07 patient son and his were present. today patient is eating her breakfast, patient is encourage to ambulate and work with PT/OT. patient is accepted by [facility], will discharge tomorrow. Subjective Date/time seen: 08/08/24 17:26 Interval history: New onset atrial fibrillation with rapid ventricular response. H&P-Narrative: This is a 79-year-old female with history of hypertension, hyperlipidemia, chronic kidney disease, glaucoma, overactive bladder, and depression who is being directly admitted to the IMU from [place] [facility] [place] [facility] [place] further treatment and evaluation after she was found to be in atrial fibrillation with rapid ventricular response, presumably new onset. The patient provides the following history and her son and [id number] provide additional information with the patient's permission. She lives alone and ambulates with a wheeled walker. Over some months she has become increasingly weak and deconditioned and she has had a couple of falls requiring lift assist. She has help at home 3 days a week and she recently started physical therapy but family believes that she needs more care. Earlier this week she developed erythema and edema of the left lower leg and was seen in [place] at which time she was prescribed doxycycline for cellulitis with marked improvement. Lower extremity venous Doppler ultrasound was negative for DVT at that time. Today she was brought in for evaluation due to ongoing weakness which seems to be getting worse. It is now to the point where she is afraid to stand as she is worried about falling. She denies syncope, near syncope, vertigo, chest pain, palpitations, orthopnea, shortness of breath, nausea, vomiting, and diarrhea. She has intermittent dysuria and reports ongoing issues with incontinence which may be related to the fact that she is having difficulties getting up to the bathroom. In the ED: She was found to be in atrial fibrillation with rapid ventricular response, presumably a new diagnosis however the patient is prescribed metoprolol tartrate 3 times a day which is somewhat of an unusual dose. Labs were significant for hemoglobin of 10.9, sodium 134, potassium 3.3, BUN 24, creatinine 1.10, lactic acid 2.4, proBNP 8210. Head CT and chest x-ray were without acute findings. EKG showed rapid atrial fibrillation with low QRS voltage in the precordial leads and nonspecific ST T-wave abnormalities. She was given diltiazem 10 mg IV and a p.o. dose of metoprolol tartrate and she is being transferred to the IMU in this setting for further treatment and workup. 79 y/o had been complaints of weakness and lower extremities cellulitis, patient cellulitis was recently treated with doxycycline and which has improved however her weakness and difficulty with ADL brought to outside ER and was found to have new onset Atrial fibrillation with RVR. patient was transferred to the hospital for further evaluation patient was started on Diltiazem drip 5mg, her HR did trended down but remain in upper 130 and increased diltiazem drip to 7.5mg, on 08/06 patient was seen by plant ecologist started patient on metoprolol succinate 200mg PO qd, and diltiazem 120mg PO daily, stopped diltiazem drip, patient being anticoagulated with Eliquis 5mg BID and further recommendation to follow. patient cardiac ECHO showed preserve LV function with grade II diastolic dysfunction. today patient HR is stable, still in A. fib, was transferred patient out of IMU to [facility], on 08/07 patient son and his were present. today patient is eating her breakfast, patient is encourage to ambulate and work with PT/OT. patient is accepted by [facility], will discharge tomorrow. Review of Systems Review of Systems: 12 systems were reviewed and are negative except for as per HPI. Exam Narrative: Morbidly obese Patient is comfortable, NAD HEENT: eyes are clear and none icteric LUNGS:CTA HEART: Irregularly irregular ABD: BS+, Soft and nontender Lower extremities: no edema SKIN: nonjaundiced Neuro: grossly intact. Objective Data Vital Signs Vital Signs: Vital Signs - 24 hr 08/07/24 20:00 08/07/24 20:00 08/07/24 20:00 Temperature 35.7 C L Pulse Rate 75 77 Respiratory Rate 20 Blood Pressure 112/59 L Pulse Oximetry 100 Oxygen Delivery Room Air 08/08/24 00:00 08/08/24 04:00 08/08/24 04:00 Temperature 35.7 C L Pulse Rate 70 64 71 Respiratory Rate 20 Blood Pressure 126/43 L Pulse Oximetry 98 Oxygen Delivery 08/08/24 08:00 08/08/24 08:00 08/08/24 09:11 Temperature Pulse Rate 69 74 Respiratory Rate Blood Pressure 152/106 H Pulse Oximetry Oxygen Delivery Room Air 08/08/24 09:13 08/08/24 12:00 08/08/24 13:42 Temperature 35.8 C L Pulse Rate 72 61 65 Respiratory Rate 18 Blood Pressure 132/78 Pulse Oximetry 98 Oxygen Delivery Intake/Output Intake/Output: Intake & Output 08/05/24 08/06/24 08/07/24 08/08/24 23:59 23:59 23:59 23:59 Intake Total 1749.9 1175.0 2150 480 Output Total 700 720 0 600 Balance 1049.9 455.0 2150 -120 Meds/Results Medications: Active Medications Generic Name Dose Route Start Last Admin Trade Name Freq PRN Reason Stop Dose Admin Acetaminophen 650 mg 08/04/24 17:56 Acetaminophen 325 Mg Tablet PO Q6H PRN Mild Pain (1-3) or Fever Allopurinol 100 mg 08/05/24 09:00 08/08/24 09:13 Allopurinol 100 Mg Tablet PO 100 mg DAILY MARITO Administration Alprazolam 0.25 mg 08/07/24 11:51 08/08/24 09:14 Alprazolam (*Crx) 0.25 Mg Tablet PO 0.25 mg TID PRN Administration Anxiety Apixaban 5 mg 08/05/24 21:00 08/08/24 09:13 Apixaban 5 Mg Tablet PO 5 mg Q12HR MARITO Administration Atorvastatin Calcium 20 mg 08/05/24 09:00 08/08/24 09:14 Atorvastatin 20 Mg Tablet PO 20 mg DAILY MARITO Administration Calcium Carbonate 200 mg 08/06/24 15:55 08/06/24 16:09 Calcium Carbonate (Tums) 500 Mg (200 Mg Elemental) PO 200 mg Q6H PRN Administration Indigestion Doxycycline Hyclate 100 mg 08/04/24 18:00 08/08/24 05:22 Doxycycline Hyclate 100 Mg Tablet PO 100 mg Q12H MARITO Administration Latanoprost 1 drop 08/04/24 18:00 08/07/24 17:23 Latanoprost 0.005% Op Soln 2.5 Ml Btl RIGHT EYE 1 drop QPM MARITO Administration Levalbuterol HCl 0.63 mg 08/06/24 22:31 08/06/24 23:00 Levalbuterol Neb 1.25 Mg/3 Ml INHALATION 0.63 mg Q6HRT PRN Administration SOB or wheezing Losartan Potassium 25 mg 08/06/24 09:00 08/08/24 09:13 Losartan Potassium 25 Mg Tablet PO 25 mg DAILY MARITO Administration Magnesium Oxide 400 mg 08/05/24 09:00 08/08/24 09:13 Magnesium Oxide 400 Mg Tablet PO 400 mg DAILY MARITO Administration Metoprolol Succinate 200 mg 08/06/24 13:00 08/08/24 09:13 Metoprolol Succinate Ext Rel 100 Mg Tabcr PO 200 mg QAM MARITO Administration Oxybutynin Chloride 10 mg 08/04/24 18:00 08/07/24 17:23 Oxybutynin Chloride 5 Mg Tablet PO 10 mg QPM MARITO Administration Oxybutynin Chloride 5 mg 08/05/24 09:00 08/08/24 09:14 Oxybutynin Chloride 5 Mg Tablet PO 5 mg QAM MARITO Administration Sertraline HCl 50 mg 08/05/24 09:00 08/07/24 12:09 Sertraline Hcl 50 Mg Tablet PO Not Given DAILY MARITO Tramadol HCl 50 mg 08/04/24 17:57 Tramadol Hcl (*Crx) 50 Mg Tablet PO Q12H PRN pain 4-10 Radiology Results: ITS Impressions Chest CTA 08/05/24 11:32 IMPRESSION: 1. No pulmonary embolism. 2. Groundglass opacities in both lungs and favor atelectasis related to expiratory phase of imaging over mild pulmonary edema or pneumonia. 3. Partially visualized supraumbilical ventral hernia containing fat and a portion of the transverse colon. 4. Cardiomegaly. Labs Labs: Laboratory Results - last 24 hr 08/08/24 05:25 WBC 8.3 RBC 3.10 L Hgb 9.5 L Hct 30.9 L MCV 99.7 MCH 30.6 MCHC 30.7 L RDW 14.3 Plt Count 301 MPV 9.6 Sodium 134 L Potassium 4.2 Chloride 104 Carbon Dioxide 26 Anion Gap 4 BUN 20 H Creatinine 0.89 Estim Creat Clear Calc 56 Estimated GFR > 60 Glucose 99 Calcium 8.5 Magnesium 1.9 Quality VTE Prophylaxis VTE prophylaxis: pharmacologic ordered
[2024-08-08] MEDS: oxyBUTYnin CHLORIDE 5 MG TABLET 10 MG PO (17:38)
[2024-08-08] MEDS: CALCIUM CARBONATE (TUMS) 500 MG (200 MG ELEMENTAL) PO (17:41)
[2024-08-08] MEDS: LATANOPROST 0.005% OP SOLN 2.5 ML BTL 1 DROP RIGHT EYE (17:42)
[2024-08-09] VITALS: PULSE 68
[2024-08-09 04:00] VITALS: PULSE 57
[2024-08-09] MEDS: DOXYCYCLINE HYCLATE 100 MG TABLET PO (05:24)
[2024-08-09 05:52] LABS: Hematocrit 29.6 % (37.0-47.0); Hemoglobin 9.3 g/dL (12.0-15.0); Mean Corpuscular HGB Conc 31.4 g/dl (32-36); Mean Corpuscular Hemoglobin 30.9 pg (26-34); Mean Corpuscular Volume 98.3 fl (80-100); Mean Platelet Volume 9.5 fl (7.4-10.4); Platelet Count Result 307 k/mm3 (150-375); Red Blood Count 3.01 M/mm3 (4.2-5.4); Red Cell Distribution Width 14.4 % (11.5-14.5); White Blood Count 8.7 K/mm3 (4.5-10.0)
[2024-08-09 06:00] LABS: Anion Gap 4 mmol/L (4-12); Blood Urea Nitrogen 19 mg/dL (7-17); Calcium 8.3 mg/dL (8.4-10.2); Carbon Dioxide 27 mmol/L (22-30); Chloride 102 mmol/L (98-107); Estimated CRCL calculation 52 ml/min; Estimated Glomerular Filt Rate 56; Glucose 95 mg/dL (65-110); Sodium 133 mmol/L (137-145)
[2024-08-09 06:23] VITALS: BP 121/77; PULSE 65; RESP 20; TEMP 36.6; O2SAT 98
[2024-08-09 08:00] VITALS: PULSE 65; RESP 20; O2SAT 98
[2024-08-09] MEDS: ATORVASTATIN 20 MG TABLET PO (08:43)
[2024-08-09] MEDS: LOSARTAN POTASSIUM 25 MG TABLET PO (08:43)
[2024-08-09] MEDS: MAGNESIUM OXIDE 400 MG TABLET PO (08:43)
[2024-08-09] MEDS: METOPROLOL SUCCINATE EXT REL 100 MG TABCR 200 MG PO (08:44)
[2024-08-09] MEDS: allopurinoL 100 MG TABLET PO (08:44)
[2024-08-09] MEDS: APIXABAN 5 MG TABLET PO (08:46)
--- NOTE | 2024-08-09 09:20 | PM.DS ---
DS: Admitting Diagnosis Discharge Date 08/09/24 Admitting Diagnosis New onset atrial fibrillation with rapid ventricular response. DS: Discharge Diagnosis Discharge Diagnosis (1) Atrial fibrillation with rapid ventricular response: Code(s): I48.91 - Unspecified atrial fibrillation Status: Acute (2) Hypokalemia: Code(s): E87.6 - Hypokalemia Status: Acute (3) Chronic kidney disease, stage 3: Code(s): N18.30 - Chronic kidney disease, stage 3 unspecified Status: Acute (4) Hypertension: Code(s): I10 - Essential (primary) hypertension Status: Acute (5) Hyperlipidemia: Code(s): E78.5 - Hyperlipidemia, unspecified Status: Acute (6) Glaucoma: Code(s): H40.9 - Unspecified glaucoma Status: Acute Plan The patient presented to the emergency department at the outside facility for evaluation of weakness and was found to be in atrial fibrillation with rapid ventricular response as detailed in HPI. Labs, imaging, EKG, and all reports were personally reviewed. She has no known history of atrial fibrillation but is a metoprolol tartrate 3 times a day which is quite unusual. Continue with metoprolol for now and initiate Cardizem drip as her rate still remains quite high. She received a dose of enoxaparin 1 mg/kg at the outside facility. Long discussion with the patient and her family members regarding risk versus benefit of anticoagulation and at this time we will hold on initiating a DOAC pending cardiology and therapy input. Echocardiogram an apnea link ordered. TSH is within normal limits. ProBNP is quite elevated though she really appears euvolemic. Pulmonary embolism is considered as a D-dimer done earlier this week was elevated however left lower extremity Doppler was negative for DVT. Recheck D-dimer and obtain chest CTA if significantly elevated. Kidney function is stable on review of previous labs. Blood pressures are reasonable and will be monitored. Replace potassium and monitor. The rest of her home medications will be reviewed and resumed as appropriate. Findings and treatment plan were discussed with the patient. Questions were solicited and answered to satisfaction. The patient's medical management will be taken over by the hospitalist team in a.m. 79 y/o had been complaints of weakness and lower extremities cellulitis, patient cellulitis was recently treated with doxycycline and which has improved however her weakness and difficulty with ADL brought to outside ER and was found to have new onset Atrial fibrillation with RVR. patient was transferred to the hospital for further evaluation patient was started on Diltiazem drip 5mg, her HR did trended down but remain in upper 130 and increased diltiazem drip to 7.5mg, on 08/06 patient was seen by neighborhood conservation officer started patient on metoprolol succinate 200mg PO qd, and diltiazem 120mg PO daily, stopped diltiazem drip, patient being anticoagulated with Eliquis 5mg BID and further recommendation to follow. patient cardiac ECHO showed preserve LV function with grade II diastolic dysfunction. today patient HR is stable, still in A. fib, was transferred patient out of IMU to [facility], on 08/07 patient son and his were present. today patient is eating her breakfast, patient is encourage to ambulate and work with PT/OT. patient is accepted by [facility], will discharge tomorrow. DS: Summary Hospital Course Hospital Course: 79 y/o had been complaints of weakness and lower extremities cellulitis, patient cellulitis was recently treated with doxycycline and which has improved however her weakness and difficulty with ADL brought to outside ER and was found to have new onset Atrial fibrillation with RVR. patient was transferred to the hospital for further evaluation patient was started on Diltiazem drip 5mg, her HR did trended down but remain in upper 130 and increased diltiazem drip to 7.5mg, on 08/06 patient was seen by neighborhood conservation officer started patient on metoprolol succinate 200mg PO qd, and diltiazem 120mg PO daily, stopped diltiazem drip, patient being anticoagulated with Eliquis 5mg BID and further recommendation to follow. patient cardiac ECHO showed preserve LV function with grade II diastolic dysfunction. today patient HR is stable, still in A. fib, was transferred patient out of IMU to [facility], on 08/07 patient son and his were present. today patient is eating her breakfast, patient is encourage to ambulate and work with PT/OT. patient is accepted by [facility], will discharge tomorrow. patient is clinically stable, her HR is stable, [facility] Time Spent with Patient Time attestation: Total time spent providing and/or coordinating discharge services: Exam Narrative: Morbidly obese Patient is comfortable, NAD HEENT: eyes are clear and none icteric LUNGS:CTA HEART: Irregularly irregular ABD: BS+, Soft and nontender Lower extremities: no edema SKIN: nonjaundiced Neuro: grossly intact. DS: Data Data Completed and Pending Labs on day of discharge: Labs from last 24 hours 08/09/24 05:14 WBC 8.7 RBC 3.01 L Hgb 9.3 L Hct 29.6 L MCV 98.3 MCH 30.9 MCHC 31.4 L RDW 14.4 Plt Count 307 MPV 9.5 Sodium 133 L Potassium 4.0 Chloride 102 Carbon Dioxide 27 Anion Gap 4 BUN 19 H Creatinine 0.96 Estim Creat Clear Calc 52 Estimated GFR 56 L Glucose 95 Calcium 8.3 L Magnesium 2.0 Discharge Plan Discharge Attending physician on discharge: Herminio Veliz Consulting providers: Niraj Peacock; Tanya Boothe; Tim Slade Discharging Clinician: Erica Sunshine Patient Disposition: Inpatient Rehab Facility Activity: as tolerated Diet: heart healthy Discharge Instructions: patient to follow up with her neighborhood conservation officer and primary care provider as soon as possible. Patient Language: Greek Follow-up/Referrals: Tana Brooks [Other] Leah Rutledge DO [Physician] - Discharge Medications: New metoprolol succinate [Toprol XL] 100 mg Tablet Extended Release 24 Hr 200 mg PO QAM Qty: 30 0RF alprazolam 0.25 mg Tablet 0.25 mg PO TID PRN (Reason: Anxiety) Qty: 10 0RF magnesium oxide 400 mg (241.3 mg magnesium) Tablet 400 mg PO DAILY Qty: 30 0RF calcium carbonate 500 mg calcium (1,250 mg) Tablet,Chewable 200 mg PO Q6H PRN (Reason: Indigestion) Qty: 30 0RF levalbuterol HCl 1.25 mg/3 mL Solution For Nebulization 0.63 mg inhalation Q6HRT PRN (Reason: SOB or wheezing) Qty: 30 0RF Eliquis 5 mg Tablet 5 mg PO Q12HR Qty: 60 0RF Continued doxycycline hyclate 100 mg tablet 100 mg PO Q12H Qty: 20 0RF latanoprost 0.005 % drops 1 drp RIGHT EYE QPM atorvastatin 20 mg tablet 20 mg PO DAILY allopurinol 100 mg tablet 100 mg PO DAILY losartan-hydrochlorothiazide 50-12.5 mg tablet 1 tablet PO DAILY oxybutynin chloride 5 mg tablet 5 mg PO DAILY Patient Comments: 5MG IN THE MORNING 10MG IN THE EVENING sertraline 50 mg tablet 50 mg PO DAILY tramadol 50 mg tablet 50 mg PO Q12H PRN (Reason: pain) Qty: 10 0RF Held metoprolol tartrate 25 mg tablet 25 mg PO TID Hold Instructions: until seen by primary care No Action oxybutynin chloride 5 mg tablet 10 mg PO HS Date of admission: 08/08/24 08:23 Primary Care Provider: Tana Brooks Admitting Provider: Herminio Veliz Attending physician on admission: Erica Sunshine Condition: Stable
== END 2024-08-09 11:26 | DRG 309 ==
LOC: ANHIMU 08-08 08:27 → ANH3MED 08-08 08:27
PROVIDERS: Internal Medicine; Physician Assistant; Admitting Provider General Practice; Visit Provider Family Medicine
DX: I48.91 Unspecified atrial fibrillation (principal); L03.116 Cellulitis of left lower limb; I12.9 Hypertensive chronic kidney disease with stage 1 through stage 4 chronic kidney disease, or unspecified chronic kidney disease; N18.31 Chronic kidney disease, stage 3a; I35.0 Nonrheumatic aortic (valve) stenosis; I34.0 Nonrheumatic mitral (valve) insufficiency; E87.6 Hypokalemia; E78.5 Hyperlipidemia, unspecified; N32.81 Overactive bladder; H40.9 Unspecified glaucoma; F32.A Depression, unspecified; Z96.643 Presence of artificial hip joint, bilateral; Z96.653 Presence of artificial knee joint, bilateral
CPT/HCPCS: 36415; 71275; 80048; 81001; 83735; 84443; 84484; 85027; 85380; 93005; 94640; 97110; 97161; 97165; 97530; 97535; A9270; C8929; G0378; J1650; J7030; Q9957; Q9967

== ENCOUNTER 2024-09-24 11:15 | Outpatient (NON) | payer MEDICARE, SELFPAY ==
--- OUTSIDE RECORDS SUMMARY | 2024-09-24 11:22 | XMS_ITS | Data Portability ---
[facility] Address [address] [place] [address] Care Team Providers Care Nightman Name Role Phone TANA BROOKS Primary Care Provider Unavailabl e Assessment No assessment recorded. Plan of Treatment Reminders Order Date Submit Date Provider Last Modified By Organization Details Last Modified Time Details Appointments NEW PATIENT 2024 03:30P M Joseph Rubio MD Not available Not available Not available ANY 15 2024 01:45P M TANA BROOKS ROLL ICER- Not available Not available Not available Lab uric acid, serum or plasma 2024 025 [email or web address] [facility], [address] [facility] [address], [place], [address], 09/04/2024 16:14:26 lipid panel, serum 2024 025 [facility], [address] [facility] [address], [place], [address], 09/04/2024 16:14:25 drug screen, 14 drugs (detect imed), urine 2024 025 [email or web address] [facility], [address] [facility] [address], [place], [address], 09/04/2024 16:14:26 culture , urine 2024 025 [email or web address] [facility], [address] [facility], [place], [address], 09/04/2024 16:14:25 urinaly sis, complet e 2024 025 [email or web address] [facility], [address] [place] [address], [place], [address], 09/04/2024 16:14:26 CBC w/ auto diff 2024 025 [facility], [address] [place] [address], [place], [address], 09/04/2024 16:14:26 TSH + free T4, serum 2024 025 [email or web address] [facility], [address] [place] [address], [place], [address], 09/04/2024 16:14:26 CMP, serum or plasma 2024 025 [email or web address] [facility], [address] [place] [address], [place], [address], 09/04/2024 16:14:25 HbA1c (hemogl obin A1c), blood 2024 025 [email or web address] [facility], [address] [place] [address], [place], [address], 09/04/2024 16:14:26 BNP (B-type natriur etic peptide ), serum or plasma 2024 025 [facility], [address] [place] [address], [place], [address], 09/04/2024 16:14:26 fecal occult blood, immunoa ssay, stool 2023 024 [email or web address] [facility], [address] [place] [address], [place], [address], 05/29/2024 08:24:01 CBC w/ auto diff 2023 024 [email or web address] [facility], [address] [place] [address], [place], [address], 05/31/2024 09:31:50 CMP, serum or plasma 2023 024 [email or web address] [facility], [address] [place] [address], [place], [address], 05/31/2024 09:32:03 lipid panel, serum 2023 024 [email or web address] [facility], [address] [place] [address], [place], [address], 05/31/2024 09:32:09 HbA1c (hemogl obin A1c), blood 2022 023 [facility], [address] [place] [address], [place], [address], 05/03/2023 12:07:22 CBC w/ auto diff 2022 023 NASIM [facility], [address] [place] [address], [place], [address], 12/18/2022 15:17:35 CMP, serum or plasma 2022 023 [facility], [address] [place] [address], [place], [address], 12/18/2022 15:17:35 fecal occult blood, immunoa ssay, stool 2022 023 [email or web address] [facility], [address] [place] [address], [place], [address], 04/02/2023 11:51:25 lipid panel, serum 2022 023 NASIM [facility], [address] [place] [address], [place], [address], 12/18/2022 15:17:35 TSH, ultra-s ensitiv e, serum 2022 023 NASIM [facility], [address] [place] [address], [place], [address], 12/18/2022 15:17:35 CBC w/ auto diff 2022 023 [facility], [address] [place] [address], [place], [address], 06/29/2022 15:13:06 CMP, serum or plasma 2022 023 [facility], [address] [place] [address], [place], [address], 06/29/2022 15:13:04 lipid panel, serum 2022 023 [facility], [address] [place] [address], [place], [address], 06/29/2022 15:13:06 CBC w/ auto diff 2021 022 [facility], [address] [place] [address], [place], [address], 01/31/2022 08:19:23 lipid panel, serum 2021 022 [facility], [address] [place] [address], [place], [address], 01/31/2022 08:19:22 CMP, serum or plasma 2021 022 [facility], [address] [place] [address], [place], [address], 01/31/2022 08:19:23 Referral nephrol ogist referra l 2024 025 [facility], [address] , [place], [address], 08/16/2024 09:20:[address] referra l 2024 025 [facility], [address] [place], [address], 07/18/2024 19:43:[address] referra l 2023 024 [facility], [address], [place], [address], 05/31/2024 09:32:[address] referra l 2022 023 [facility], [address] [place], [address], 07/16/2022 17:20:01 Procedures None recorde d. Surgeries None recorde d. Imaging None recorde d. Medication Orders atorvas tatin 20 mg tablet 2023 024 [facility], [address] [place], [address], 01/14/2024 15:01:00 oxybuty sanjeev chlorid e 5 mg tablet 2022 023 [facility], [address] [place], [address], 06/29/2022 15:13:05 Patient TargetsNo targets recorded. Patient Instructions Encounter Date Encounter Id Patient Instructions Last Modified By Organization Details Last Modified Time 01/30/2022 [id number] f/u in 3month/lab nsuthan Not availab le 01/30/2022 15:13:20 06/29/2022 [id number] A healthy lifestyle: care instructions nsuthan Not available 06/29/2022 15:12:59 f/u in 4 month nsuthan Not available 0 06/29/2022 15:13:30 12/18/2022 [id number] A healthy lifestyle: care instructions nsuthan Not available 12/18/2022 15:17:20 stool kit/f/u in 4 month nsuthan Not available 12/18/2022 15:20:52 01/14/2024 [id number] stool kit /f/u i n 3 month nsuthan Not available 01/14/2024 14:48:49 07/12/2024 [id number] Plan of care has been discussed with [...] - PPV 23: 02/21/18, 05/15/15 - Tdap/Td ([id number]): 02/26/16 - Zoster (>60): 06/14/15 - COVID-19: 01/06/23, 01/23/22, 01/17/21 -Labs ordered this visit: Females: Pap smear: n/a Mammogram: n/a DEXA: n/a, patient reports history of normal result [email or web address] Not available 07/12/2024 15:25:29 Reason for Referral Physical Therapist Referral for Osteoarthritis of knee Referring Physician: Lynette Damon, Internal Medicine, Encounter Date: 06/29/2022 Physical Therapist Referral for Osteoarthritis of knee Referring Physician: Lynette Damon Internal Medicine, Encounter Date: 01/14/2024 Senior Compensation Analyst Referral for Ch ronic kidney disease stage 3A Referring Physician: Tana Brooks [facility], Encounter Date: 07/12/2024 Physical Therapist Referral for Weakness of bilateral lower limb Referring Physician: T[facility], Encounter Date: 07/12/2024 Results Created Date Observation Date Name Description Value Unit Range Abnormal Flag Note LastModifiedBy Organization Detail LastModifiedTime 01/31/2001/31/2022 LIPID PANEL cholesterol, total 151 mg/dL 100-19 9 Not Available [facility] ([facility]) [address] [facility], [place], [address], 01/31/2022 08:19:22 01/31/20 22 01/31/2022 LIPID PANEL triglyceride s 111 mg/dL 0-149 Not Available [facility] ([facility]) [address] [place], [address], 01/31/2022 08:19:22 01/31/20 22 01/31/2022 LIPID PANEL HDL cholesterol 49 mg/dL >39 Not Available [facility]) [address] [place], [address], 01/31/2022 08:19:22 01/31/20 22 01/31/2022 LIPID PANEL VLDL cholesterol benedicto 20 mg/dL 5-40 Not Available [facility] ([facility]) [address] [place], [address], 01/31/2022 08:19:22 01/31/20 22 01/31/2022 LIPID PANEL LDL chol calc ([facility]) 82 mg/dL 0-99 Not Available [facility]) [address] [place], [address], 01/31/2022 08:19:22 01/31/20 22 01/31/2022 COMP. METAB OLIC PANEL (14) glucose 85 mg/dL 70-99 Not Available [facility] ([facility]) [address] [place], [address], 01/31/2022 08:19:23 01/31/20 22 01/31/2022 COMP. METAB OLIC PANEL (14) BUN 16 mg/dL 8-27 Not Available [facility] ([facility]) [address] [place], [address], 01/31/2022 08:19:23 01/31/20 22 01/31/2022 COMP. METAB OLIC PANEL (14) creatinine 1.25 mg/dL 0.57-1 .00 above high normal Not Available [facility] ([facility]) [address] [place], [address], 01/31/2022 08:19:23 01/31/20 22 01/31/2022 COMP. METAB OLIC PANEL (14) eGFR 45 mL/mi n/1.7 3 >59 below low normal Not Available [facility] ([facility]) [address] [facility], [place], [address], 01/31/2022 08:19:23 01/31/20 22 01/31/2022 COMP. METAB OLIC PANEL (14) BUN/creatini ne ratio 13 12-28 Not Available [facility] ([facility]) [address] [facility], [place], [address], 01/31/2022 08:19:23 01/31/20 22 01/31/2022 COMP. METAB OLIC PANEL (14) sodium 137 mmol/ L 134-14 4 Not Available [facility] ([facility]) [address] [facility], [place], [address], 01/31/2022 08:19:23 01/31/20 22 01/31/2022 COMP. METAB OLIC PANEL (14) potassium 4.5 mmol/ L 3.5-5. 2 Not Available [facility] ([facility]) [address] [facility], [place], [address], 01/31/2022 08:19:23 01/31/20 22 01/31/2022 COMP. METAB OLIC PANEL (14) chloride 97 mmol/ L 96-106 Not Available [facility] ([facility]) [address] [place], [address], 01/31/2022 08:19:23 01/31/20 22 01/31/2022 COMP. METAB OLIC PANEL (14) carbon dioxide, total 21 mmol/ L 20-29 Not Available [facility] ([facility]) [address] [place], [address], 01/31/2022 08:19:23 01/31/20 22 01/31/2022 COMP. METAB OLIC PANEL (14) calcium 9.3 mg/dL 8.7-10 .3 Not Available [facility] ([facility]) [address] [place], [address], 01/31/2022 08:19:23 01/31/20 22 01/31/2022 COMP. METAB OLIC PANEL (14) protein, total 6.7 g/dL 6.0-8. 5 Not Available [facility] ([facility]) [address] [place], [address], 01/31/2022 08:19:23 01/31/20 22 01/31/2022 COMP. METAB OLIC PANEL (14) albumin 4.2 g/dL 3.7-4. 7 Not Available [facility] ([facility]) [address] [place], [address], 01/31/2022 08:19:23 01/31/20 22 01/31/2022 COMP. METAB OLIC PANEL (14) globulin, total 2.5 g/dL 1.5-4. 5 Not Available [facility] ([facility]) [address] [place], [address], 01/31/2022 08:19:23 01/31/20 22 01/31/2022 COMP. METAB OLIC PANEL (14) A/G ratio 1.7 1.2-2. 2 Not Available [facility] ([facility]) [address] [place], [address], 01/31/2022 08:19:23 01/31/20 22 01/31/2022 COMP. METAB OLIC PANEL (14) bilirubin, total 0.4 mg/dL 0.0-1. 2 Not Available [facility] ([facility]) [address] [place], [address], 01/31/2022 08:19:23 01/31/20 22 01/31/2022 COMP. METAB OLIC PANEL (14) alkaline phosphatase 43 IU/L 44-121 below low normal Not Available [facility] ([facility]) [address] [place], [address], 01/31/2022 08:19:23 01/31/20 22 01/31/2022 COMP. METAB OLIC PANEL (14) AST (SGOT) 22 IU/L 0-40 Not Available [facility] ([facility]) [address] [place], [address], 01/31/2022 08:19:23 01/31/20 22 01/31/2022 COMP. METAB OLIC PANEL (14) ALT (SGPT) 9 IU/L 0-32 Not Available [facility] ([facility]) [address] [place], [address], 01/31/2022 08:19:23 01/31/20 22 01/31/2022 CBC WITH DIFFE RENTI AL/PL ATELE T WBC 7.2 x10e3 /uL 3.4-10 .8 Not Available [facility] ([facility]) [address] [place], [address], 01/31/2022 08:19:23 01/31/20 22 01/31/2022 CBC WITH DIFFE RENTI AL/PL ATELE T RBC 4.18 x10e6 /uL 3.77-5 .28 Not Available [facility] ([facility]) [address] [place], [address], 01/31/2022 08:19:23 01/31/20 22 01/31/2022 CBC WITH DIFFE RENTI AL/PL ATELE T hemoglobin 12.9 g/dL 11.1-1 5.9 Not Available [facility] ([facility]) [address] [place], [address], 01/31/2022 08:19:23 01/31/20 22 01/31/2022 CBC WITH DIFFE RENTI AL/PL ATELE T hematocrit 38.9 % 34.0-4 6.6 Not Available [facility] ([facility]) [address] [place], [address], 01/31/2022 08:19:23 01/31/20 22 01/31/2022 CBC WITH DIFFE RENTI AL/PL ATELE T MCV 93 fL 79-97 Not Available [facility] ([facility]) [address] [facility], [place], [address], 01/31/2022 08:19:23 01/31/20 22 01/31/2022 CBC WITH DIFFE RENTI AL/PL ATELE T MCH 30.9 pg 26.6-3 3.0 Not Available [facility] ([facility]) [address] [facility], [place], [address], 01/31/2022 08:19:23 01/31/20 22 01/31/2022 CBC WITH DIFFE RENTI AL/PL ATELE T MCHC 33.2 g/dL 31.5-3 5.7 Not Available [facility] ([facility]) [address] [place], [address], 01/31/2022 08:19:23 01/31/20 22 01/31/2022 CBC WITH DIFFE RENTI AL/PL ATELE T RDW 13.1 % 11.7-1 5.4 Not Available [facility] ([facility]) [address] [place], [address], 01/31/2022 08:19:23 01/31/20 22 01/31/2022 CBC WITH DIFFE RENTI AL/PL ATELE T platelets 249 x10e3 /uL 150-45 0 Not Available [facility] ([facility]) [address] [place], [address], 01/31/2022 08:19:23 01/31/20 22 01/31/2022 CBC WITH DIFFE RENTI AL/PL ATELE T neutrophils 67 % notest ab. Not Available [facility] ([facility]) [address] [facility], [place], [address], 01/31/2022 08:19:23 01/31/20 22 01/31/2022 CBC WITH DIFFE RENTI AL/PL ATELE T lymphs 23 % notest ab. Not Available [facility] ([facility]) [address] [facility], [place], [address], 01/31/2022 08:19:23 01/31/20 22 01/31/2022 CBC WITH DIFFE RENTI AL/PL ATELE T monocytes 8 % notest ab. Not Available [facility] ([facility]) [address] [facility], [place], [address], 01/31/2022 08:19:23 01/31/20 22 01/31/2022 CBC WITH DIFFE RENTI AL/PL ATELE T eos 1 % notest ab. Not Available [facility] ([facility]) [address] [facility], [place], [address], 01/31/2022 08:19:23 01/31/20 22 01/31/2022 CBC WITH DIFFE RENTI AL/PL ATELE T basos 1 % notest ab. Not Available [facility] ([facility]) [address] [facility], [place], [address], 01/31/2022 08:19:23 01/31/20 22 01/31/2022 CBC WITH DIFFE RENTI AL/PL ATELE T neutrophils (absolute) 4.7 x10e3 /uL 1.4-7. 0 Not Available [facility] ([facility]) [address] [facility], [place], [address], 01/31/2022 08:19:23 01/31/20 22 01/31/2022 CBC WITH DIFFE RENTI AL/PL ATELE T lymphs (absolute) 1.7 x10e3 /uL 0.7-3. 1 Not Available [facility] ([facility]) [address] [facility], [place], [address], 01/31/2022 08:19:23 01/31/20 22 01/31/2022 CBC WITH DIFFE RENTI AL/PL ATELE T monocytes(ab solute) 0.6 x10e3 /uL 0.1-0. 9 Not Available [facility] ([facility]) [address] [facility], [place], [address], 01/31/2022 08:19:23 01/31/20 22 01/31/2022 CBC WITH DIFFE RENTI AL/PL ATELE T eos (absolute) 0.1 x10e3 /uL 0.0-0. 4 Not Available [facility] ([facility]) [address] [facility], [place], [address], 01/31/2022 08:19:23 01/31/20 22 01/31/2022 CBC WITH DIFFE RENTI AL/PL ATELE T baso (absolute) 0.1 x10e3 /uL 0.0-0. 2 Not Available [facility] ([facility]) [address] [facility], [place], [address], 01/31/2022 08:19:23 01/31/20 22 01/31/2022 CBC WITH DIFFE RENTI AL/PL ATELE T immature granulocytes 0 % notest ab. Not Available [facility] ([facility]) [address] [facility], [place], [address], 01/31/2022 08:19:23 01/31/20 22 01/31/2022 CBC WITH DIFFE RENTI AL/PL ATELE T immature grans (abs) 0.0 x10e3 /uL 0.0-0. 1 Not Available [facility] ([facility]) [address] [facility], [place], [address], 01/31/2022 08:19:23 02/19/20 22 02/18/2022 elect chasity reynolds am No observ ation record ed. [facility] (Cardiology) [address] [facility] [place], [address], 02/19/2022 09:06:43 02/26/2002/18/2022 [place], echo ardio gram No observ ation record ed. [address] [place], [address], 02/26/2022 15:39:37 03/05/20 22 02/18/2022 [place], echo ardio gram No observ ation record ed. [address] [place], [address], 03/05/2022 11:37:43 08/17/1908/05/2024 hospi mónica disch arge follo w up* No observ ation record ed. [facility] [address], [place], [address], 09/07/2024 12:35:19 Result Notes None recorded. Problems Name Problem SNOMED Code Status Onset Date Resolution Date Notes Provider Name and Address Organization Details Recorded Time Cervical spondylosi s 485189710 Active 2018 xray 01/31-augusto re arthritis Tato Damon MD Attn: Evgeny ingram,[address] [place], [address], [facility] 2 14:57:56 Essential hypertensi on 88991257 Active Tato Damon MD Attn: Evgeny ingram,[address] [facility], [place], [address], [place] [facility] 2 14:57:57 Chronic renal failure 20257390 Active Dr.Bentley Tato Damon MD Attn: Evgeny ignram,[address] [facility], [place], [address], [facility] - [facility] 2 14:57:57 Urinary incontinen ce 897267364 Active Tato Damon MD Attn: Evgeny ingram,[address] [facility], [place], [address], [place] [facility] 2 14:57:56 Osteoarthr itis of knee 541737764 Active Tato Damon MD Attn: Earnestjamin ingram,[address] [facility], [place], [address], [place] [facility] 2 14:57:56 Hyperglyce gabriel 09814824 Active 2021 Barb Patel [place] null, [place] [facility] 2 12:03:07 Hyperlipid emia 88091352 Active Tato Damon MD Attn: Evgeny g,[address] [facility], [place], [address], [place] [facility] 2 14:57:56 Intermitte nt palpitatio ns 626887983 Active 2021 Tato Damon MD Attn: Evgeny ingram,[address] [facility], [place], [address], [place] [facility] 2 15:09:56 Anxiety disorder 752789509 Active 2021 Tato Damon MD Attn: Evgeny ingram,[address] [facility], [place], [address], [place] [facility] 2 15:09:59 Gastroesop hageal reflux disease without esophagiti s 224113422 Active 2021 Tato Damon MD Attn: Evgeny ingram,[address] [facility], [place], [address], [place] [facility] 2 15:10:00 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 Procedures Surgical History Date Name Laterality Status Provider Name and Address Organization Details Recorded Time 07/14/19 21 Most Recent Mammogram completed Felisa Castellano MA [facility] 12/19/2021 15:14:59 Eye Surgery completed Aretha Davis MA [facility] 04/26/2014 15:49:12 Appendectomy completed Aretha Davis MA [facility] 04/26/2014 15:49:12 Hysterectomy completed Aretha Davis MA [facility] 04/26/2014 15:49:12 Joint Replacement completed Aretha Davis MA [facility] 04/26/2014 15:49:12 Caesarean Section completed Aretha Davis MA [facility] 04/26/2014 15:49:12 Imaging Results None recorded. Procedure [...] Updated DateTime 3 157.48 cm 44.5 kg/m2 781728. 02 g 82 /min 12 /min 97.1 [degF] 95 % 95 % 124/77 mm[Hg] Barb Patel MA [place] [facility] 3 14:53:07 Date Recorded Body height Oxygen saturation Oxygen saturation in Arterial blood by Pulse oximetry Heart rate Respiratory rate Body temperature Systolic And Diastolic Provider Name and Address Organization Details Last Updated DateTime 5 157.48 cm 96 % 96 % 64 /min 14 /min 97.2 [degF] 119/77 mm[Hg] Barb Patel MA [facility] 5 15:14:54 Date Recorded Body height Body mass index (BMI) Body weight Heart rate Respiratory rate Body temperature Oxygen saturation Oxygen saturation in Arterial blood by Pulse oximetry Systolic And Diastolic Provider Name and Address Organization Details Last Updated DateTime 3 157.48 cm 45 kg/m2 193936. 72 g 96 /min 14 /min 98 [degF] 95 % 95 % 120/78 mm[Hg] Carmelita Ata [facility] 3 15:08:33 Date Recorded Body height Heart rate Respiratory rate Body temperature Oxygen saturation Oxygen saturation in Arterial blood by Pulse oximetry Systolic And Diastolic Provider Name and Address Organization Details Last Updated DateTime 4 157.48 cm 72 /min 16 /min 97.7 [degF] 98 % 98 % 124/80 mm[Hg] Shakira Garza MA [facility] 4 14:29:52 Date Recorded Body height Heart rate Respiratory rate Body temperature Oxygen saturation Oxygen saturation in Arterial blood by Pulse oximetry Body mass index (BMI) Body weight Systolic And Diastolic Provider Name and Address Organization Details Last Updated DateTime 2 157.48 cm 71 /min 14 /min 97.5 [degF] 97 % 97 % 44.4 kg/m2 680894. 23 g 128/86 mm[Hg] Saba Tom MA [facility] 2 15:03:18 Social History Question Answer Notes LastModified by Organizat ion Details LastModified Time Tobacco Smoking Status Never Smoker Aretha Davis MA null, [facility] 04/26/2014 15:49:12 Do You Have An Advance [...] Do You Have Serious Difficulty Hearing? No [email or web address] Information not available 08/23/2020 What Type Of Diet Are You Following? REGULAR Information not available 02/26/2016 Which Illicit Or Recreational Drugs Have You Used? Denies Information not available 02/26/2016 What Is The Highest Grade Or Level Of School You Have Completed Or The Highest Degree You Have Received? [id number] Information not available 12/23/2020 Are There Any [...] Seat Belt Or Car Seat Routinely? Yes Information not available 08/23/2020 Seat Belts Used Routinely Yes Information not available 08/29/2018 Do You Have Smoke And Carbon Monoxide Detectors In Your Home? Yes [email or web address] Information not available 08/23/2020 How Much Tobacco Do You Smoke? No Information not available 04/26/2019 General Stress Level Medium [email or web address] Information not available 12/13/2019 Do You Use Sunscreen Routinely? Yes When Needed Information not available 08/29/2018 Has Tobacco Cessation Counseling Been Provided? Yes [email or web address] Information not available 12/18/2022 On What Date Was Tobacco Cessation Counseling Provided? 07/12/2024 Information not available 07/12/2024 Sex: Female Functional Status Question Answer Note LastModified by Organizat ion Details LastModified Time Do you use any illicit or recreational drugs? No [email or web address] Information not available 08/23/2020 Do you or have you ever used any other forms of tobacco or nicotine? No [email or web address] Information not available 08/23/2020 What is your level of alcohol consumption? None Rarely Information not available 07/12/2024 Do you or have you ever used smokeless tobacco? Never used smokeless tobacco Information not available 04/26/2019 Are you currently employed? No Information not available 12/23/2020 Are you able to care for yourself? 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 Never used electronic cigarettes Information not available 04/26/2019 What is your exercise level? Occasional Walk [email or web address] Information not available 12/19/2021 Mental Status Question Answer Note LastModified by Organization D etails LastModified Time Do you feel stressed (tense, restless, nervous, or anxious, or unable to sleep at night)? [id number] Information not available 12/23/2020 Family History Relationship [...] available 2024 14:57:51 Medical History Condition Response Coronary Artery Disease N Atrial Fibrillation N High Blood Pressure Y Kidney or Bladder Problems Y Thyroid Problems N GI Problems N Depression N COPD N Blood Clots N Skin Problems N Anemia N Heart Attack (AL) N Anxiety Disorder N Diabetes N Muscle, Joint, or Bone Problems Y Seizures/Epilepsy N Acid Reflux (GERD) N Cancer N Stroke N Asthma N Allergies N High Cholesterol Y Hepatitis N Liver Disease N Headaches N Heart Failure N Gynecological History Statement/Question Response Most Recent Mammogram 07/13/2020 Obstetrics History GPAL:G 0 P 0 0 0 0 Immunizations Vaccine Type Date Status Note Provider Nam e and Address Organization Details Recorded Time Pneumococcal conjugate PCV 13 6 completed Not Available [facility] 04/01/2019 02:44:17 Influenza, split virus, quadrivalent, preservative 9 completed Barb Patel null, [place] [facility] 01/11/2019 14:44:47 Influenza, high-dose, quadrivalent, PF 1 completed Barb Patel [place], [place] [facility] 12/23/2020 17:27:58 COVID-19, mRNA, LNP-S, PF, 30 mcg/0.3 mL dose 1 completed Barb Patel [place] null, [place] [facility] 01/23/2021 09:40:18 Influenza, split virus, quadrivalent, preservative 6 completed Not Available [facility] 04/01/2019 02:49:47 COVID-19, mRNA, LNP-S, bivalent, PF, 30 mcg/0.3 mL dose 2 completed Barb Patel MA null, [place] [facility] 01/27/2022 13:58:14 Tdap 6 completed Not Available [facility] 04/01/2019 02:41:32 COVID-19, mRNA, LNP-S, PF, [...] virus, quadrivalent, preservative 7 completed Not Available [facility] 04/01/2019 02:34:25 Influenza, split virus, quadrivalent, preservative 8 completed Not Available [facility] 04/01/2019 02:47:53 pneumococcal polysaccharide PPV23 8 completed Not Available [facility] 04/01/2019 02:36:57 Influenza, high-dose, quadrivalent, PF 2 completed Tato Damon MD Attn: Accounting[address] [place], [address], [place] [facility] 12/19/2021 15:53:36 zoster live 6 completed Tato Damon MD Attn: Accounting[address] [place], [address], [place] [facility] 02/26/2016 15:42:22 Influenza, high-dose, quadrivalent, PF 3 completed Tato Damon MD Attn: Accounting[address] [place], [address], [place] [facility] 12/18/2022 16:12:54 Influenza, high-dose, trivalent, PF 4 completed Shakira Garza [place], [place] [facility] 01/14/2024 15:10:24 Influenza, split virus, quadrivalent, preservative 5 completed Not Available [facility] 04/01/2019 02:45:27 Past Encounters Encounter ID Performer Location Encounter Start Date Encounter Closed Date Diagnosis/Indication Diagnosis SNOMED-CT Code Diagnosis ICD10 Code Diagnosis Note [id number] [facility] [address] [place] [address] 04/26/2014 15:35:04 04/26/2014 17:52:25 Essential hypertension 73581583 continue same Chronic renal failure 62555933 As per who moved to [facility] pt may switch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
--- OUTSIDE RECORDS SUMMARY | 2024-09-24 11:22 | XMS_ITS | Continuity of Care Document ---
Author Organization [facility] Address [address] [place] [address] Phone Care Team Providers Care Therapeutic Case Manager Name Role Phone Vanita Dowd MD Unavailable Unavailable Procedures Procedure Date Post-op Follow-up Visit Post-op Follow-up Visit Remove Cataract, Insert Lens Office Consultation Echo Exam Of Eye Advance Directives Directive Yes / No Effective Date File Name No Information Encounters Encounter Description Practice Location Reason(s) For Visit Diagnoses Date Provider Providers Copied on Encounter [facility], [address] [place] [address] [address], [place], [place], [id number], [place] tel:[phone] SEC Bhupinder MOBLEY Professional No Information [address]. [address] [facility] [place], [address], [place]. tel:[phone] Referring Provider: Kelly Borges [address] [place] [address] [place], [address]. [facility], [address], [place], [place], [address], [place] tel:[phone] SEC Bhupinder ITZ Professional No Information [address]. [address] [facility], [place], [address], [place]. tel:[phone] [facility], [address] [place] [address] [address], [place], [place], [address], tel:[phone] [facility] No Information Nile [address]. [address], [facility] [place], [address], [place]. tel:[phone] Referring Provider: Kelly Borges, [address] [place] [address] [facility], [place], [address]. Office Consultation [facility], [address], [place], [place], [id number], [phone] SEC Bhupinder [place] Professional No Information [address]. [address], [facility], [address], [place]. tel:[phone] Referring Provider: Kelly Borges, [address] [place] [address] [facility], [place], [address]. Family History Family Member Type Diagnosis Age [...]
--- OUTSIDE RECORDS SUMMARY | 2024-09-24 11:22 | XMS_ITS | Clinical Summary ---
Author Organization [facility] Address [address] [address] Care Team Providers Care Yacht Hand Name Role Phone Tato Damon MD Primary Care Provider [phone] Allergies No known active allergies Medications aspirin [...] of 2 - PCV) 1966 Influenza Vaccine (#1) 2024 Hepatitis B Vaccine Aged Out No longe r eligible based on patient's age to complete this topic Care Teams Yacht Hand Relationship Specialty Start Date End Date Tato Damon MD [address] [place] [id number] PCP - General Internal Medicine 06/27/21
[2024-09-24 11:28] LABS: Add Urine Microscopic? YES; Appearance Urine Cloudy (Clear); Glucose Urine UA Negative (Negative); Leukocyte Esterase Ur 3+ LEU/UL (Negative); Nitrate Urine Positive (Negative); Specific Grav Ur 1.015 (1.010-1.020)
== END 2024-09-24 11:16 | disposition home or self-care (01) ==
LOC: CHSLAB 11:19
DX: R30.0 Dysuria (principal); N39.0 Urinary tract infection, site not specified; R35.0 Frequency of micturition
CPT/HCPCS: 81001

== ENCOUNTER 2024-09-28 10:39 | Outpatient (CLI) | payer MEDICARE, SELFPAY ==
--- OUTSIDE RECORDS SUMMARY | 2024-09-28 10:59 | XMS_ITS | Clinical Summary ---
Author Organization [facility] Facility Address [address] [address] Care Team Providers Care Bed Laster Name Role Phone Tato Damon MD Primary Care Provider [phone] Allergies No known active allergies Medications aspirin [...] age to complete this topic Care Teams Bed Laster Relationship Specialty Start Date End Date Tato Damon MD [address] [id number] PCP - General Internal Medicine 06/27/21
--- OUTSIDE RECORDS SUMMARY | 2024-09-28 10:59 | XMS_ITS | Data Portability ---
Author Organization [facility] Address [address] 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 Not available Not available Lab uric acid, serum or plasma 2024 025 [email or web address] [facility], [address] [facility] [address], [place], [address], 09/04/2024 16:14:26 lipid panel, serum 2024 025 [email or web address] [facility], [address] [facility] [address], [place], [address], 09/04/2024 16:14:25 drug screen, 14 drugs (detect imed), urine 2024 025 [email or web address] [facility], [address] [facility] [address], [place], [address], 09/04/2024 16:14:26 culture , urine 2024 025 [email or web address] [facility], [address] [facility], [place], [address], 09/04/2024 16:14:25 urinaly sis, complet e 2024 025 [email or web address] [facility], [address] [place] [address], [place], [address], 09/04/2024 16:14:26 CBC w/ auto diff 2024 025 [email or web address] [facility], [address] [place] [address], [place], [address], 09/04/2024 16:14:26 TSH + free T4, serum 2024 025 [email or web address] [facility], [address] [place] [address], [place], [address], 09/04/2024 16:14:26 CMP, serum or plasma 2024 025 [email or web address] [facility], [address] [place] [address], [place], [address], 09/04/2024 16:14:25 HbA1c (hemogl obin A1c), blood 2024 025 [email or web address] [facility], [address] [place] [address], [place], [address], 09/04/2024 16:14:26 BNP (B-type natriur etic peptide ), serum or plasma 2024 025 [email or web address] [facility], [address] [place] [address], [place], [address], 09/04/2024 16:14:26 fecal occult blood, immunoa ssay, stool 2023 024 [email or web address] [facility], [address] [place] [address], [place], [address], 05/29/2024 08:24:01 CBC w/ auto diff 2023 024 [email or web address] [facility], [address] [place] [address], [place], [address], 05/31/2024 09:31:50 CMP, serum or plasma 2023 024 [email or web address] [facility], [address] [place] [address], [place], [address], 05/31/2024 09:32:03 lipid panel, serum 2023 024 [email or web address] [facility], [address] [place] [address], [place], [address], 05/31/2024 09:32:09 HbA1c (hemogl obin A1c), blood 2022 023 [facility], [address] [place] [address], [place], [address], 05/03/2023 12:07:22 CBC w/ auto diff 2022 023 NASIM [facility], [address] [place] [address], [place], [address], 12/18/2022 15:17:35 CMP, serum or plasma 2022 023 NASIM [facility], [address] [place] [address], [place], [address], 12/18/2022 15:17:35 fecal occult blood, immunoa ssay, stool 2022 023 [email or web address] [facility], [address] [place] [address], [place], [address], 04/02/2023 11:51:25 lipid panel, serum 2022 023 NASIM [facility], [address] [place] [address], [place], [address], 12/18/2022 15:17:35 TSH, ultra-s ensitiv e, serum 2022 023 NASIM [facility], [address] [place] [address], [place], [address], 12/18/2022 15:17:35 CBC w/ auto diff 2022 023 [facility], [address] [place] [address], [place], [address], 06/29/2022 15:13:06 CMP, serum or plasma 2022 023 [facility], [address] [place] [address], [place], [address], 06/29/2022 15:13:04 lipid panel, serum 2022 023 [facility], [address] [place] [address], [place], [address], 06/29/2022 15:13:06 CBC w/ auto diff 2021 022 [facility], [address] [place] [address], [place], [address], 01/31/2022 08:19:23 lipid panel, serum 2021 022 [facility], [address] [place] [address], [place], [address], 01/31/2022 08:19:22 CMP, serum or plasma 2021 022 [facility], [address] [place] [address], [place], [address], 01/31/2022 08:19:23 Referral nephrol ogist referra l 2024 025 [facility], [address] , [place], [address], 08/16/2024 09:20:[address] referra l 2024 025 [facility], [address] [place], [address], 07/18/2024 19:43:[address] referra l 2023 024 [facility] [address], [place], [address], 05/31/2024 09:32:[address] referra l 2022 023 [facility], [address] [place], [address], 07/16/2022 17:20:01 Procedures None recorde d. Surgeries None recorde d. Imaging None recorde d. Medication Orders atorvas tatin [address] [facility], [address] [place], [address], 01/14/2024 15:01:00 oxybuty sanjeev chlorid e [address] [facility], [address] [place], [address], 06/29/2022 15:13:05 Patient TargetsNo targets recorded. Patient Instructions Encounter Date Encounter Id Patient Instructions Last Modified By Organization Details Last Modified Time 01/30/2022 [id number] f/u in 3month/lab nsuthan Not availab le 01/30/2022 15:13:20 06/29/2022 [id number] A healthy lifestyle: care instructions nsuthan Not available 06/29/2022 15:12:59 f/u in 4 month nsuthan Not available 0 06/29/2022 15:13:30 12/18/2022 [id number] A healthy lifestyle: care instructions nsuthan Not available 12/18/2022 15:17:20 stool kit/f/u in 4 month nsuthan Not available 12/18/2022 15:20:52 01/14/2024 [id number] stool kit /f/u i n 3 month nsuthan Not available 01/14/2024 14:48:49 07/12/2024 [id number] Plan of care has been discussed with [...] - PPV 23: 02/21/18, 05/15/15 - Tdap/Td ([id number]): 02/26/16 - Zoster (>60): 06/14/15 - COVID-19: 01/06/23, 01/23/22, 01/17/21 -Labs ordered this visit: Females: Pap smear: n/a Mammogram: n/a DEXA: n/a, patient reports history of normal result [email or web address] Not available 07/12/2024 15:25:29 Reason for Referral Physical Therapist Referral for Osteoarthritis of knee Referring Physician: Lynette Damon, Internal Medicine, Encounter Date: 06/29/2022 Physical Therapist Referral for Osteoarthritis of knee Referring Physician: Lynette Damon Internal Medicine, Encounter Date: 01/14/2024 [employer] Referral for Ch ronic kidney disease stage 3A Referring Physician: Tana Brooks [facility], Encounter Date: 07/12/2024 Physical Therapist Referral for Weakness of bilateral lower limb Referring Physician: Tana Brooks Family [facility], Encounter Date: 07/12/2024 Results Created Date Observation Date Name Description Value Unit Range Abnormal Flag Note LastModifiedBy Organization Detail LastModifiedTime 01/31/2001/31/2022 LIPID PANEL cholesterol, total 151 mg/dL 100-19 9 Not Available [facility] ([facility]) [address] [facility], [place], [address], 01/31/2022 08:19:22 01/31/20 22 01/31/2022 LIPID PANEL triglyceride s 111 mg/dL 0-149 Not Available [facility] ([facility]) [address] [place], [address], 01/31/2022 08:19:22 01/31/20 22 01/31/2022 LIPID PANEL HDL cholesterol 49 mg/dL >39 Not Available [facility] ([facility]) [address] [place], [address], 01/31/2022 08:19:22 01/31/20 22 01/31/2022 LIPID PANEL VLDL cholesterol benedicto 20 mg/dL 5-40 Not Available [facility] ([facility]) [address] [place], [address], 01/31/2022 08:19:22 01/31/20 22 01/31/2022 LIPID PANEL LDL chol calc ([facility]) 82 mg/dL 0-99 Not Available [facility] ([facility]) [address] [place], [address], 01/31/2022 08:19:22 01/31/20 22 01/31/2022 COMP. METAB OLIC PANEL (14) glucose 85 mg/dL 70-99 Not Available [facility] ([facility]) [address] [place], [address], 01/31/2022 08:19:23 01/31/20 22 01/31/2022 COMP. METAB OLIC PANEL (14) BUN 16 mg/dL 8-27 Not Available [facility] ([facility]) [address] [place], [address], 01/31/2022 08:19:23 01/31/20 22 01/31/2022 COMP. METAB OLIC PANEL (14) creatinine 1.25 mg/dL 0.57-1 .00 above high normal Not Available [facility] ([facility]) [address] [place], [address], 01/31/2022 08:19:23 01/31/20 22 01/31/2022 COMP. METAB OLIC PANEL (14) eGFR 45 mL/mi n/1.7 3 >59 below low normal Not Available [facility] ([facility]) [address] [facility], [place], [address], 01/31/2022 08:19:23 01/31/20 22 01/31/2022 COMP. METAB OLIC PANEL (14) BUN/creatini ne ratio 13 12-28 Not Available [facility] ([facility]) [address] [facility], [place], [address], 01/31/2022 08:19:23 01/31/20 22 01/31/2022 COMP. METAB OLIC PANEL (14) sodium 137 mmol/ L 134-14 4 Not Available [facility] ([facility]) [address] [facility], [place], [address], 01/31/2022 08:19:23 01/31/20 22 01/31/2022 COMP. METAB OLIC PANEL (14) potassium 4.5 mmol/ L 3.5-5. 2 Not Available [facility] ([facility]) [address] [facility], [place], [address], 01/31/2022 08:19:23 01/31/20 22 01/31/2022 COMP. METAB OLIC PANEL (14) chloride 97 mmol/ L 96-106 Not Available [facility] ([facility]) [address] [place], [address], 01/31/2022 08:19:23 01/31/20 22 01/31/2022 COMP. METAB OLIC PANEL (14) carbon dioxide, total 21 mmol/ L 20-29 Not Available [facility] ([facility]) [address] [place], [address], 01/31/2022 08:19:23 01/31/20 22 01/31/2022 COMP. METAB OLIC PANEL (14) calcium 9.3 mg/dL 8.7-10 .3 Not Available [facility] ([facility]) [address] [place], [address], 01/31/2022 08:19:23 01/31/20 22 01/31/2022 COMP. METAB OLIC PANEL (14) protein, total 6.7 g/dL 6.0-8. 5 Not Available [facility] ([facility]) [address] [place], [address], 01/31/2022 08:19:23 01/31/20 22 01/31/2022 COMP. METAB OLIC PANEL (14) albumin 4.2 g/dL 3.7-4. 7 Not Available [facility] ([facility]) [address] [place], [address], 01/31/2022 08:19:23 01/31/20 22 01/31/2022 COMP. METAB OLIC PANEL (14) globulin, total 2.5 g/dL 1.5-4. 5 Not Available [facility] ([facility]) [address] [place], [address], 01/31/2022 08:19:23 01/31/20 22 01/31/2022 COMP. METAB OLIC PANEL (14) A/G ratio 1.7 1.2-2. 2 Not Available [facility] ([facility]) [address] [place], [address], 01/31/2022 08:19:23 01/31/20 22 01/31/2022 COMP. METAB OLIC PANEL (14) bilirubin, total 0.4 mg/dL 0.0-1. 2 Not Available [facility] ([facility]) [address] [place], [address], 01/31/2022 08:19:23 01/31/20 22 01/31/2022 COMP. METAB OLIC PANEL (14) alkaline phosphatase 43 IU/L 44-121 below low normal Not Available [facility] ([facility]) [address] [place], [address], 01/31/2022 08:19:23 01/31/20 22 01/31/2022 COMP. METAB OLIC PANEL (14) AST (SGOT) 22 IU/L 0-40 Not Available [facility] ([facility]) [address] [place], [address], 01/31/2022 08:19:23 01/31/20 22 01/31/2022 COMP. METAB OLIC PANEL (14) ALT (SGPT) 9 IU/L 0-32 Not Available [facility] ([facility]) [address] [place], [address], 01/31/2022 08:19:23 01/31/20 22 01/31/2022 CBC WITH DIFFE RENTI AL/PL ATELE T WBC 7.2 x10e3 /uL 3.4-10 .8 Not Available [facility] ([facility]) [address] [place], [address], 01/31/2022 08:19:23 01/31/20 22 01/31/2022 CBC WITH DIFFE RENTI AL/PL ATELE T RBC 4.18 x10e6 /uL 3.77-5 .28 Not Available [facility] ([facility]) [address] [place], [address], 01/31/2022 08:19:23 01/31/20 22 01/31/2022 CBC WITH DIFFE RENTI AL/PL ATELE T hemoglobin 12.9 g/dL 11.1-1 5.9 Not Available [facility] ([facility]) [address] [place], [address], 01/31/2022 08:19:23 01/31/20 22 01/31/2022 CBC WITH DIFFE RENTI AL/PL ATELE T hematocrit 38.9 % 34.0-4 6.6 Not Available [facility] ([facility]) [address] [place], [address], 01/31/2022 08:19:23 01/31/20 22 01/31/2022 CBC WITH DIFFE RENTI AL/PL ATELE T MCV 93 fL 79-97 Not Available [facility] ([facility]) [address] [facility], [place], [address], 01/31/2022 08:19:23 01/31/20 22 01/31/2022 CBC WITH DIFFE RENTI AL/PL ATELE T MCH 30.9 pg 26.6-3 3.0 Not Available [facility] ([facility]) [address] [facility], [place], [address], 01/31/2022 08:19:23 01/31/20 22 01/31/2022 CBC WITH DIFFE RENTI AL/PL ATELE T MCHC 33.2 g/dL 31.5-3 5.7 Not Available [facility] ([facility]) [address] [place], [address], 01/31/2022 08:19:23 01/31/20 22 01/31/2022 CBC WITH DIFFE RENTI AL/PL ATELE T RDW 13.1 % 11.7-1 5.4 Not Available [facility] ([facility]) [address] [place], [address], 01/31/2022 08:19:23 01/31/20 22 01/31/2022 CBC WITH DIFFE RENTI AL/PL ATELE T platelets 249 x10e3 /uL 150-45 0 Not Available [facility] ([facility]) [address] [place], [address], 01/31/2022 08:19:23 01/31/20 22 01/31/2022 CBC WITH DIFFE RENTI AL/PL ATELE T neutrophils 67 % notest ab. Not Available [facility] ([facility]) [address] [facility], [place], [address], 01/31/2022 08:19:23 01/31/20 22 01/31/2022 CBC WITH DIFFE RENTI AL/PL ATELE T lymphs 23 % notest ab. Not Available [facility] ([facility]) [address] [facility], [place], [address], 01/31/2022 08:19:23 01/31/20 22 01/31/2022 CBC WITH DIFFE RENTI AL/PL ATELE T monocytes 8 % notest ab. Not Available [facility] ([facility]) [address] [facility], [place], [address], 01/31/2022 08:19:23 01/31/20 22 01/31/2022 CBC WITH DIFFE RENTI AL/PL ATELE T eos 1 % notest ab. Not Available [facility] ([facility]) [address] [facility], [place], [address], 01/31/2022 08:19:23 01/31/20 22 01/31/2022 CBC WITH DIFFE RENTI AL/PL ATELE T basos 1 % notest ab. Not Available [facility] ([facility]) [address] [facility], [place], [address], 01/31/2022 08:19:23 01/31/20 22 01/31/2022 CBC WITH DIFFE RENTI AL/PL ATELE T neutrophils (absolute) 4.7 x10e3 /uL 1.4-7. 0 Not Available [facility] ([facility]) [address] [facility], [place], [address], 01/31/2022 08:19:23 01/31/20 22 01/31/2022 CBC WITH DIFFE RENTI AL/PL ATELE T lymphs (absolute) 1.7 x10e3 /uL 0.7-3. 1 Not Available [facility] ([facility]) [address] [facility], [place], [address], 01/31/2022 08:19:23 01/31/20 22 01/31/2022 CBC WITH DIFFE RENTI AL/PL ATELE T monocytes(ab solute) 0.6 x10e3 /uL 0.1-0. 9 Not Available [facility] ([facility]) [address] [facility], [place], [address], 01/31/2022 08:19:23 01/31/20 22 01/31/2022 CBC WITH DIFFE RENTI AL/PL ATELE T eos (absolute) 0.1 x10e3 /uL 0.0-0. 4 Not Available [facility] ([facility]) [address] [facility], [place], [address], 01/31/2022 08:19:23 01/31/20 22 01/31/2022 CBC WITH DIFFE RENTI AL/PL ATELE T baso (absolute) 0.1 x10e3 /uL 0.0-0. 2 Not Available [facility] ([facility]) [address] [facility], [place], [address], 01/31/2022 08:19:23 01/31/20 22 01/31/2022 CBC WITH DIFFE RENTI AL/PL ATELE T immature granulocytes 0 % notest ab. Not Available [facility] ([facility]) [address] [facility], [place], [address], 01/31/2022 08:19:23 01/31/20 22 01/31/2022 CBC WITH DIFFE RENTI AL/PL ATELE T immature grans (abs) 0.0 x10e3 /uL 0.0-0. 1 Not Available [facility] ([facility]) [address] [facility], [place], [address], 01/31/2022 08:19:23 02/19/20 22 02/18/2022 elect chasity reynolds am No observ ation record ed. [facility] (Cardiology) [address] [place] [address] [place], [address], 02/19/2022 09:06:43 02/26/2002/18/2022 [place], echo ardio gram No observ ation record ed. [address] [place], [address], 02/26/2022 15:39:37 03/05/20 22 02/18/2022 [place], echo ardio gram No observ ation record ed. [address] [place], [address], 03/05/2022 11:37:43 08/17/1908/05/2024 hospi mónica disch arge follo w up* No observ ation record ed. [facility] [address], [place], [address], 09/07/2024 12:35:19 Result Notes None recorded. Problems Name Problem SNOMED Code Status Onset Date Resolution Date Notes Provider Name and Address Organization Details Recorded Time Essential hypertensi on 99875775 Active Tato Damon MD Attn: Evgeny ingram,[address] [place], [address], [facility] 2 14:57:57 Chronic renal failure 39442699 Active Dr.Bentley Tato Damon MD Attn: Evgeny ingram,[address] [place], [address], [facility] 2 14:57:57 Urinary incontinen ce 189638113 Active Tato Damon MD Attn: Evgeny ingram,[address] [place], [address], [facility] 2 14:57:56 Osteoarthr itis of knee 456956643 Active Tato Damon MD Attn: Evgeny ingram,[address] [place], [address], [place] [facility] 2 14:57:56 Hyperlipid emia 10415070 Active Tato Damon MD Attn: Evgeny ingram,[address] [facility], [place], [address], [place] [facility] 2 14:57:56 Morbid obesity 565369027 Active Tato Damon MD Attn: Evgeny ingram,[address] [facility], [place], [address], [place] [facility] 2 14:57:56 Cervical spondylosi s 755302725 Active 2018 xray 01/31-augusto re arthritis Tato Damon MD Attn: Evgeny ingram,[address] [facility], [place], [address], [place] [facility] 2 14:57:56 Hyperglyce gabriel 80674952 Active 2021 Barb Patel [place] null, [place] [facility] 2 12:03:07 Intermitte nt palpitatio ns 950771683 Active 2021 Tato Damon MD Attn: Evgeny ingram,[address] [facility], [place], [address], [place] [facility] 2 15:09:56 Anxiety disorder 821987008 Active 2021 Tato Damon MD Attn: Earnestjamin ingram,[address] [facility], [place], [address], [place] [facility] 2 15:09:59 Gastroesop hageal reflux disease without esophagiti s 520310251 Active 2021 Tato Damon MD Attn: Earnestjamin ingram,[address] 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, [place], [address], [place] [facility] 14:44:48 Notes:echo 03/05 -EF55-60% Problem Notes None recorded. Procedures Surgical History Date Name Laterality Status Provider Name and Address Organization Details Recorded Time 07/14/19 21 Most Recent Mammogram completed Felisa Castellano MA [facility] 12/19/2021 15:14:59 Eye Surgery completed Aretha Davis MA [facility] 04/26/2014 15:49:12 Appendectomy completed Aretha Davis MA [facility] 04/26/2014 15:49:12 Hysterectomy completed Aretha Davis MA [facility] 04/26/2014 15:49:12 Joint Replacement completed Aretha Davis MA [facility] 04/26/2014 15:49:12 Caesarean Section completed Aretha Davis MA [facility] 04/26/2014 15:49:12 Imaging Results None recorded. Procedure [...] Updated DateTime 3 157.48 cm 44.5 kg/m2 425157. 02 g 82 /min 12 /min 97.1 [...] 97.2 [degF] 119/77 mm[Hg] Barb Patel MA [facility] 5 15:14:54 Date Recorded Body height Body mass index (BMI) Body weight Heart rate Respiratory rate Body temperature Oxygen saturation Oxygen saturation in Arterial blood by Pulse oximetry Systolic And Diastolic Provider Name and Address Organization Details Last Updated DateTime 3 157.48 cm 45 kg/m2 393819. 72 g 96 /min 14 /min 98 [degF] 95 % 95 % 120/78 mm[Hg] Carmelita Ata [facility] 3 15:08:33 [...] [degF] 97 % 97 % 44.4 kg/m2 491911. 23 g 128/86 mm[Hg] Saba Tom MA [...] Do You Have Serious Difficulty Hearing? No [email or web address] Information not available 08/23/2020 What Type Of Diet Are You Following? REGULAR Information not available 02/26/2016 Which Illicit Or Recreational Drugs Have You Used? Denies Information not available 02/26/2016 What Is The Highest Grade Or Level Of School You Have Completed Or The Highest Degree You Have Received? [id number] Information not available 12/23/2020 Are There Any [...] Seat Belt Or Car Seat Routinely? Yes [email or web address] Information not available 08/23/2020 Seat Belts Used Routinely Yes Information not available 08/29/2018 Do You Have Smoke And Carbon Monoxide Detectors In Your Home? Yes [email or web address] Information not available 08/23/2020 How Much Tobacco Do You Smoke? No Information not available 04/26/2019 General Stress Level Medium [email or web address] Information not available 12/13/2019 Do You Use Sunscreen Routinely? Yes When Needed Information not available 08/29/2018 Has Tobacco Cessation Counseling Been Provided? Yes [email or web address] Information not available 12/18/2022 On What Date Was Tobacco Cessation Counseling Provided? 07/12/2024 Information not available 07/12/2024 Sex: Female Functional Status Question Answer Note LastModified by Organizat ion Details LastModified Time Do you use any illicit or recreational drugs? No [email or web address] Information not available 08/23/2020 Do you or have you ever used any other forms of tobacco or nicotine? No [email or web address] Information not available 08/23/2020 What is your level of alcohol consumption? None Rarely Information not available 07/12/2024 Do you or have you ever used smokeless tobacco? Never used smokeless tobacco Information not available 04/26/2019 Are you currently employed? No Information not available 12/23/2020 Are you able to care for yourself? 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 Never used electronic cigarettes Information not available 04/26/2019 What is your exercise level? Occasional Walk [email or web address] Information not available 12/19/2021 Mental Status Question Answer Note LastModified by Organization D etails LastModified Time Do you feel stressed (tense, restless, nervous, or anxious, or unable to sleep at night)? [id number] Information not available 12/23/2020 Family History Relationship [...] Skin Problems N Anemia N Heart Attack ([place]) N Anxiety Disorder N Diabetes N Muscle, [...] conjugate PCV 13 6 completed Not Available [facility] 04/01/2019 02:44:17 Influenza, split virus, quadrivalent, preservative 9 completed Barb Patel null, [place] [facility] 01/11/2019 14:44:47 Influenza, high-dose, quadrivalent, PF 1 completed Barb Patel [place] [facility] 12/23/2020 17:27:58 COVID-19, mRNA, LNP-S, PF, 30 mcg/0.3 mL dose 1 completed Barb Patel [place], [place] [facility] 01/23/2021 09:40:18 Influenza, split virus, quadrivalent, preservative 6 completed Not Available [facility] 04/01/2019 02:49:47 COVID-19, mRNA, LNP-S, bivalent, PF, 30 mcg/0.3 mL dose 2 completed Barb Patel [place], [place] [facility] 01/27/2022 13:58:14 Tdap 6 completed Not Available [facility] 04/01/2019 02:41:32 COVID-19, mRNA, LNP-S, PF, [...] virus, quadrivalent, preservative 7 completed Not Available [facility] 04/01/2019 02:34:25 Influenza, split virus, quadrivalent, preservative 8 completed Not Available [facility] 04/01/2019 02:47:53 pneumococcal polysaccharide PPV23 8 completed Not Available [facility] 04/01/2019 02:36:57 Influenza, high-dose, quadrivalent, PF 2 completed Tato Damon MD Attn: Accounting[address] [place], [address], [place] [facility] 12/19/2021 15:53:36 zoster live 6 completed Tato Damon MD Attn: Accounting[address] [place], [address], [place] [facility] 02/26/2016 15:42:22 Influenza, high-dose, quadrivalent, PF 3 completed Tato Damon MD Attn: Accounting[address] [place], [address], [place] [facility] 12/18/2022 16:12:54 Influenza, high-dose, trivalent, PF 4 completed Shakira Garza [place], [place] [facility] 01/14/2024 15:10:24 Influenza, split virus, quadrivalent, preservative 5 completed Not Available [facility] 04/01/2019 02:45:27 Past Encounters Encounter ID Performer Location Encounter Start Date Encounter Closed Date Diagnosis/Indication Diagnosis SNOMED-CT Code Diagnosis ICD10 Code Diagnosis Note [id number] [facility] [address] [place] [address] 04/26/2014 15:35:04 04/26/2014 17:52:25 Essential hypertension 02791188 continue same Chronic renal failure 28840014 As per who moved to [facility] pt may switch to different nephro Screening mammography 25008251 Urinary incontinence 833616741 continue same Osteoarthr itis of knee 984060405 of R/knee-pt may go for sx in future ( s/p L/TKR- 10/26) Avoid nSAID due to CRF Tramadol daily prn [id number] [facility] [address] [place] [address] 07/05/2014 15:15:28 07/05/2014 17:41:23 Pre-surgery evaluation [id number] R/knee replacemen t on 07/10 check labs and EKG ordered by [facility] Osteoarthr itis of knee 659890581 of R/knee-pt may go for sx on 07/10 ( s/p L/TKR- 10/26) Avoid nSAID due to CRF Tramadol daily prn [id number] [facility] [address] [place] [address] 08/30/2014 15:38:09 08/30/2014 16:22:46 Essential hypertension 01689155 continue same Hyperlipidemia 31792753 noncomplia nt with med following diet and being more active following knee sx Chronic renal failure 12292677 As per Osteoarthr itis of knee 502687148 of R/knee-had sx on 07/10/14 ( s/p L/TKR- 10/26) Avoid nSAID due to CRF Tramadol daily prn [id number] [facility] [address] [place] [address] 01/14/2015 10:25:59 01/14/2015 11:07:25 Essential hypertension 22981934 I10 continue same Hyperlipidemia 17441103 E78.4 noncomplia nt with med following diet and being more active following knee sx pt to do labs Osteoarthr itis of knee 177925780 M17.0 of R/knee-had sx on 07/10/14 ( s/p L/TKR- 10/26) Avoid nSAID due to CRF Tramadol daily prn Chronic renal failure 90 680105 N18.3 As per Administra tion of influenza vaccine 92102169 Z23 [id number] MD Meghna [facility] (Adult Med) [address] [place] [address] 05/15/2015 14:05:04 05/15/2015 16:19:23 Essential hypertension 48167393 I10 continue same Hyperlipidemia 13823522 E78.4 pt restarted on pravastati n following diet and being more active following knee sx pt to do labs Osteoarthr itis of knee 137496620 M17.0 of R/knee-had sx on 07/10/14 ( s/p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
--- OUTSIDE RECORDS SUMMARY | 2024-09-28 10:59 | XMS_ITS | Continuity of Care Document ---
Author Organization [facility] Address [address] [place] [address] Phone Care Team Providers Care Wine Pasteurizer Name Role Phone Vanita Dowd MD Unavailable Unavailable Procedures Procedure Date Post-op Follow-up Visit Post-op Follow-up Visit Remove Cataract, Insert Lens Office Consultation Echo Exam Of Eye Advance Directives Directive Yes / No Effective Date File Name No Information Encounters Encounter Description Practice Location Reason(s) For Visit Diagnoses Date Provider Providers Copied on Encounter [facility], [address] [place] [address] [address], [place], [place], [address], [place] tel:[phone] SEC Bhupinder MOBLEY Professional No Information [address] [facility] [place], [address], [place]. tel:[phone] Referring Provider: Kelly Borges [address] [place] [address] [place], [address]. [facility], [address], [place], [place], [address], [place] tel:[phone] SEC Bhupinder ITZ Professional No Information [address]. [address] [facility], [facility], [place], [address], [place]. tel:[phone] [facility], [address] [place] [address] [address], [place], [place], [address], tel:[phone] [facility] No Information Nile [address]. [address], [facility] [place], [address], [place]. tel:[phone] Referring Provider: Kelly Borges, [address] [place] [address] Eye [facility], [place], [address]. Office Consultation [facility] Eye [facility], [address], [place], [place], [address], [phone] SEC Bhupinder [place] Professional No Information Nile [address]. [address], [facility] [place], [address], [place]. tel:[phone] Referring Provider: Kelly Borges, [address] [place] [address] Eye [facility], [place], [address]. Family History Family Member Type Diagnosis Age At Onset No Information Payers Payer name Insurance type Covered green party ID Authoriza tion(s) No Information Social [...]
[2024-09-28 11:25] LABS: Blood Urea Nitrogen 14 mg/dL (7-17); Estimated Glomerular Filt Rate > 60
== END 2024-09-28 10:40 | disposition home or self-care (01) ==
DX: N18.32 Chronic kidney disease, stage 3b (principal); I50.30 Unspecified diastolic (congestive) heart failure
CPT/HCPCS: 36415; 82565; 84520